=== PATIENT | female | born 1955 | race Caucasian/White ===

== ENCOUNTER 2020-09-25 16:07 | Inpatient (IN) | payer MEDICARE, BC ==
[2020-09-25] MEDS ORDERED: Acetaminophen 650 MG Supp RECTAL PRN (16:41)
[2020-09-25] MEDS ORDERED: Ondansetron 4 MG/2 ML SDV IVPUSH PRN (16:43)
[2020-09-25] MEDS ORDERED: Sodium Chloride 0.9% 10 ML Syringe FLUSH PRN (16:51)
[2020-09-25] MEDS: Dextrose 5%-Lactated Ringers 1,000 ML IV SCH (16:55)
[2020-09-25] MEDS: Pantoprazole 40 MG Vial IV SCH ×2 (17:59→21:39)
[2020-09-25] MEDS: Venlafaxine 75 MG Tab PO SCH ×2 (21:39→21:40)
[2020-09-25] MEDS: Acetaminophen 325 MG Tab PO PRN (21:46)
[2020-09-25] MEDS: LORazepam 0.5 MG Tab PO PRN (21:46)
[2020-09-26] MEDS: Dextrose 5%-Lactated Ringers 1,000 ML IV SCH ×2 (01:36→14:30)
[2020-09-26] MEDS: Levothyroxine 100 MCG Tab PO SCH (07:26)
[2020-09-26] MEDS: Venlafaxine 75 MG Tab PO SCH ×3 (08:48→20:42)
[2020-09-26] MEDS: Pantoprazole 40 MG Vial IV SCH ×2 (08:48→20:42)
[2020-09-26] MEDS: Tolterodine 2 MG Tab PO SCH ×2 (08:48→20:42)
[2020-09-26] MEDS: Magnesium Sulfate/Water 2 GM/50 ML BAG IV SCH ×3 (08:57→20:43)
[2020-09-26] MEDS ORDERED: MVI, Adult with Vitamin K 10 ML, Thiamine 200 MG, Zinc/Copper/Manganese/Selenium 1 ML i... IV ONE ×4 (09:00)
[2020-09-26] MEDS ORDERED: Cyanocobalamin (Vitamin B12) 1,000 MCG/ML SDV IM ONE (09:00)
--- NOTE | 2020-09-26 09:17 | HP ---
HISTORY OF PRESENT ILLNESS: Lucero Price is a 65-year-old female who had a laparoscopic Caden-en-Y gastric bypass surgery on 10/11/2005. She was last seen in the clinic on 11/06/2005 and presented for the first time on Friday09/22/2020. She reports that she has had mid epigastric pain for about a year. Pain was episodic at first; then in the last 2 months, it has increased to every 2 weeks; and she can have up to 3 to 4 episodes a day. She reports episode as a hard pain, poking-like, associated with nausea, dry heaves; and lasting anywhere from 1 to 5 minutes. After an episode, she put a warm rice pack on her upper abdomen. She did have an EGD in April and that was negative. She was put on a month of Protonix and she did not feel like it helped. Also associated, she has been severely constipated. Her chiropractor massaged her abdomen and gave her magnesium citrate tablets 300 mg. She was to take one at bedtime and increase the number of pills until she had a bowel movement. She did increase up to 12 pills and did not have a bowel movement. She states the pain has no relationship to eating or drinking. CURRENT MEDICATIONS: Lorazepam 0.5 mg one q.6 hours p.r.n. anxiety, levothyroxine 100 mcg 1 tablet once daily, Zofran 4 mg 1 tablet every morning before breakfast, Pepcid 20 mg b.i.d., Effexor 75 mg 1 tablet 3 times a day with meals, Detrol LA 4 mg 1 capsule once daily, vitamin B12 at 500 mcg sublingual daily, and ferrous sulfate iron 325 mg 1 tablet once a day. ALLERGIES: TO SULFA. PAST MEDICAL HISTORY: Status post Caden-en-Y gastric bypass surgery, unspecified surgical malabsorption, B12 deficiency, depression, dyslipidemia, fibromyalgia, mixed incontinence, vitamin D deficiency, and alcohol dependence. PAST SURGICAL HISTORY: Laparoscopic Caden-en-Y gastric bypass surgery 10/11/2005, hysterectomy 08/22/1981, and cholecystectomy 11/02/2014. SOCIAL HISTORY: She is , employed at the [employer] in [place], and 3 children. Smoking, no history. Caffeine, drinks 3 to 4 cups of decaf per day. Alcohol abuse, history of alcohol dependence. Last alcohol drink 2 to 3 months ago. Carbonation, rare caffeine-free Diet Coke. Otherwise, will drink some 7UP. REVIEW OF SYSTEMS: CONSTITUTIONAL: Denies any fever, chills, or weight loss. Weight has been steady. Reports episodes of getting sweaty during the day and having night sweats, several nights a week; hair loss; dizzy; and a lot more headaches. SKIN: Negative for rash, pigment changes, or skin lesions. HEENT: No ear pain, loss of hearing, or blurred or double vision. CARDIOVASCULAR: No chest pain or shortness of breath. RESPIRATORY: No shortness of breath but does have a dry cough at night. ENDOCRINE: No history of polyuria, polydipsia, skin or hair changes, or heat or cold intolerance. LYMPH: Denies any lymph node tenderness or swelling. GASTROINTESTINAL: As above. GENITOURINARY: No UTI signs or symptoms. MUSCULOSKELETAL: No joint pain or swelling. NEUROLOGIC: No history of focal neurological changes. No memory changes. PSYCHIATRIC: Depression is controlled with Effexor. Remainder of review of systems negative for any pertinent positives or negatives. PHQ-9 interpretation score is zero. DIET: Step 4, protein unknown but states eats a lot of meat. EXERCISE: None. FLUIDS: 64 ounces of water a day. OBJECTIVE: GENERAL: Lucero Price is a 65-year-old female. VITAL SIGNS: Height is 5 feet 3 inches. Weight is 160 pounds. BMI is 28. TPR is 97.5, 86, and 18. Blood pressure 126/72. HEENT: Negative. NECK: Supple. HEART: Regular rate and rhythm. LUNGS: Clear. ABDOMEN: Tender. There is firmness noted across the right, left, and mid epigastric area. EXTREMITIES: Without peripheral edema. SKIN: Without rash. NEUROLOGIC: Cranial nerves 2 through 12 intact. MUSCULOSKELETAL: Equal strength in upper and lower extremities. PSYCHIATRIC: Mood and affect appropriate, orientated x3. ASSESSMENT: 1. Upper abdominal pain. CT showing 2 gastric wall defects. a. One in the body of the stomach extending superior, suspicious for penetrating ulcer and the second lesion is close to the serosal part of the stomach wall. b. Second smaller defect in the inferior antrum, measures less than a centimeter. Also suspect for perforating ulcer. 2. Hemoglobin 6.4, ferritin 5 in the clinic. 3. Hypothyroidism. 4. Depression. 5. Unspecified surgical malabsorption. 6. B12 deficiency. 7. Fatigue. 8. Constipation. 9. History of alcohol abuse. Last drink 2 months ago. PLAN: 1. D5 LR at 125 mL per hour. Protonix 40 mg IV b.i.d. Intake and output. Ativan 0.5 mg p.o. q.6 hours p.r.n. anxiety. 2. Synthroid 100 mcg mg p.o. q.a.m. 3. Zofran 4 mg IV q.4 hours p.r.n. nausea. 4. Effexor 75 mg p.o. t.i.d. 5. Detrol LA 4 mg p.o. daily. 6. Check CBC, CMP, magnesium, phos, and TSH in a.m. Ferrous gluconate 250 mg today IV and repeat in a.m. Vitamin B12 at 1000 mcg IM 1 time today. Magnesium 2 g IV q.6 hours x48 hours. 7. Step 4 gastric bypass diet. 8. Give 1 bag of lactated Ringer with MultiVites today. She is now receiving 2 units of packed red blood cells, and plan would be exploratory laparotomy with removal of remnant stomach on 09/28/2020 pending lab results and patient's condition. We will evaluate p.r.n. or in a.m. Rachel Taylor PA-C /[id number]
[2020-09-26] MEDS ORDERED: Sodium Ferric Gluconate Cmplex 250 MG in Sodium Chloride 0.9% 100 ML IV ONE (11:00)
[2020-09-26] MEDS: Acetaminophen 325 MG Tab PO PRN (12:31)
[2020-09-26] MEDS: LORazepam 0.5 MG Tab PO PRN (22:53)
[2020-09-27] MEDS: Dextrose 5%-Lactated Ringers 1,000 ML IV SCH (01:12)
[2020-09-27] MEDS: Magnesium Sulfate/Water 2 GM/50 ML BAG IV SCH ×5 (03:33→22:20)
[2020-09-27] MEDS: Levothyroxine 100 MCG Tab PO SCH (07:34)
[2020-09-27] MEDS ORDERED: Non-Formulary Medication 1 Each IV ONE ×2 (07:43)
[2020-09-27] MEDS ORDERED: Ketamine 500 MG/5 ML MDV IV SCH ×2 (07:45)
[2020-09-27] MEDS: Pantoprazole 40 MG Vial IV SCH ×2 (08:33→20:27)
[2020-09-27] MEDS: Venlafaxine 75 MG Tab PO SCH ×3 (08:33→20:27)
[2020-09-27] MEDS: Tolterodine 2 MG Tab PO SCH ×2 (08:33→20:27)
[2020-09-27] MEDS: Acetaminophen 325 MG Tab PO PRN (09:33)
[2020-09-27] MEDS ORDERED: Sodium Ferric Gluconate Cmplex 250 MG in Sodium Chloride 0.9% 100 ML IV ONE (10:00)
--- NOTE | 2020-09-27 10:17 | PN ---
DATE OF SERVICE: 09/27/2020 SUBJECTIVE: Emelyn received 2 units of packed red blood cells yesterday. Her hemoglobin today was 8.7. She denies pain. Vital signs stable and oral intake adequate. Labs were reviewed. REVIEW OF SYSTEMS: Remainder of review of systems negative for any pertinent positives and negatives. OBJECTIVE: GENERAL: Lucero Price is a pleasant 65-year-old female. She is alert and orientated. VITAL SIGNS: TPR 95.8, 91, 18. Blood pressure 135/68. HEENT: Negative. NECK: Supple. HEART: Regular rate and rhythm. LUNGS: Clear. ABDOMEN: Soft, nontender. There remains to be some firmness in the right and left upper quadrants. Questionable liver enlargement. EXTREMITIES: Without peripheral edema. ASSESSMENT: 1. Upper abdominal pain, CT showing two gastric wall defects: a. One in body of stomach extending superior, suspicious for penetrating ulcer and the second lesion is close to the serosal part of stomach wall. b. Second smaller defect in the inferior antrum, measures less than a centimeter. Also suspect for perforating ulcer. 2. Hemoglobin on admission 6.4, ferritin 5 in clinic. 3. Hypothyroidism. 4. Depression. 5. Unspecified surgical malabsorption. 6. B12 deficiency. 7. Fatigue. 8. Constipation. 9. History of alcohol abuse. Last drink 2 months ago. PLAN: 1. Give 2 units of packed red blood cells today. 2. Schedule and have consent signed for: a. Central venous IV line for inadequate peripheral vein access. b. Exploratory laparotomy with resection of the bypass stomach and possible lysis of adhesions. Date of procedure: 09/28/2020. Case to follow. General anesthesia, TAP block, ketamine bolus indirect, magnesium bolus indirect ordered. N.p.o. after midnight. Zay Betancourt MD is surgeon. 3. Cefoxitin 2 g IV on-call to OR. 4. Check CBC, CMP, magnesium, phosphorus, and BNP in a.m. Type and screen 2 units of packed red blood cells to have on hand postoperatively. Continue to evaluate and will recheck in a.m. or p.r.n. Rachel Taylor PA-C /[id number]
[2020-09-27] MEDS ORDERED: Acetaminophen/Caffeine 500-65 MG Tab PO PRN (11:28)
[2020-09-27] MEDS: LORazepam 0.5 MG Tab PO PRN (20:26)
[2020-09-28] MEDS: Acetaminophen 325 MG Tab PO PRN (06:57)
[2020-09-28] MEDS: Levothyroxine 100 MCG Tab PO SCH (07:01)
[2020-09-28] MEDS ORDERED: Meropenem 500 MG SDV ONE (07:03)
[2020-09-28] MEDS ORDERED: Lidocaine 1% with EPINEPHrine 1:100,000 50 ML MDV ONE (07:03)
[2020-09-28] MEDS ORDERED: Bupivacaine 0.5% 50 ML MDV ONE (07:03)
[2020-09-28] MEDS ORDERED: Dexamethasone 4 MG/ML SDV ONE (07:11)
[2020-09-28] MEDS ORDERED: Glycopyrrolate 0.2 MG/ML 5 ML MDV ONE (07:11)
[2020-09-28] MEDS ORDERED: Rocuronium 50 MG/5 ML Vial ONE ×2 (07:11→13:17)
[2020-09-28] MEDS ORDERED: fentaNYL 250 MCG/5 ML SDV ONE ×2 (07:11→13:16)
[2020-09-28] MEDS ORDERED: Neostigmine Methylsulfate 1 MG/ML 5 ML Syringe ONE (07:11)
[2020-09-28] MEDS ORDERED: Succinylcholine 200 MG/10 ML MDV ONE (07:11)
[2020-09-28] MEDS ORDERED: Ondansetron 4 MG/2 ML SDV ONE (07:11)
[2020-09-28] MEDS ORDERED: Propofol 200 MG/20 ML SDV ONE (07:11)
[2020-09-28] MEDS ORDERED: Acetaminophen 325 MG Tab PO ONE (07:15)
[2020-09-28] MEDS: Tolterodine 2 MG Tab PO SCH ×2 (08:24→20:53)
[2020-09-28] MEDS: Venlafaxine 75 MG Tab PO SCH ×3 (08:24→20:53)
[2020-09-28] MEDS: Pantoprazole 40 MG Vial IV SCH (08:24)
--- NOTE | 2020-09-28 09:43 | PN ---
DATE OF SERVICE: 09/28/2020 SUBJECTIVE: Lucero is n.p.o. for surgery today. She continues to report having headache, was given Excedrin Tension Migraine yesterday and did not have any relief. She has no concerns or questions today. OBJECTIVE: GENERAL: Lucero Price is a pleasant 65-year-old female. VITAL SIGNS: TPR 96.8, 85, 18, blood pressure 146/80. HEENT: Negative. NECK: Supple. HEART: Regular rate and rhythm. LUNGS: Clear. ABDOMEN: Soft, nontender. EXTREMITIES: Without peripheral edema. LABORATORY DATA: Hemoglobin this morning is 11. ASSESSMENT: 1. Upper abdominal pain. CT showing 2 gastric wall defects. a. One in body of stomach extending superior, suspicious for penetrating ulcer and the second lesion is close to the serosal part of the stomach wall. b. Second smaller defect in the inferior antrum, measures less than 1 cm. Also suspect for perforating ulcer. 2. Hemoglobin 6.4 on admission, ferritin 5. 3. Hypothyroidism. 4. Depression. 5. Unspecified surgical malabsorption. 6. B12 deficiency. 7. Fatigue. 8. Chronic constipation. 9. History of alcohol abuse. Last drink 2 months ago. PLAN: 1. Remain n.p.o. due to surgery. Case to follow. 2. Give 1 g of Tylenol p.o. with a sip of water this morning. 3. Orders to be written postoperatively. Rachel Taylor PA-C /[id number]
[2020-09-28] MEDS: Ropivacaine 36 ML, dexAMETHasone 8 MG, EPINEPHrine 0.4 MG, Sodium Chloride 0.9% 41.6 ML NERVRT SCH ×8 (11:44→13:25)
[2020-09-28] MEDS ORDERED: Magnesium Sulfate 3.4 GM in Sodium Chloride 0.9% 250 ML IV ONE (12:00)
[2020-09-28] MEDS ORDERED: Ketamine 50 MG in Sodium Chloride 0.9% 49.5 ML IV SCH (12:00)
[2020-09-28] MEDS ORDERED: cefOXitin 2 GM in Sodium Chloride 0.9% 50 ML IV ONE (12:00)
[2020-09-28] MEDS ORDERED: Ketamine 500 MG/5 ML MDV IV SCH (12:00)
[2020-09-28] MEDS ORDERED: Magnesium Sulfate 2.1 GM in Sodium Chloride 0.9% 100 ML IV SCH (12:00)
[2020-09-28] MEDS ORDERED: Lactated Ringers 1,000 ML ONE (12:30)
[2020-09-28] MEDS ORDERED: Naloxone 0.4 MG/ML SDV IVPUSH PRN (15:02)
[2020-09-28] MEDS ORDERED: Scopolamine 1.5 MG Transdermal Patch TRDERM PRN (15:03)
--- NOTE | 2020-09-28 15:35 | CR ---
CHEST: Portable 09/28/2020 CLINICAL HISTORY:Post triple-lumen catheter placement COMPARISON:2013 FINDINGS: There is less than optimal inspiration. There has been interval placement of a left subclavian catheter. The tip is in the upper portion the right atrium. No pneumothorax. There is a surgical drain in the left hemidiaphragm. IMPRESSION: Left subclavian catheter placement Less than optimal inspiration No acute cardiopulmonary process
[2020-09-28] MEDS: HYDROmorphone/Normal Saline 15 MG/30 ML PCA IV PRN (15:46)
[2020-09-28] MEDS: Dextrose 5%-Lactated Ringers 1,000 ML IV SCH (15:49)
[2020-09-28] MEDS ORDERED: LORazepam 2 MG/ML SDV IVPUSH PRN (15:56)
[2020-09-28] MEDS ORDERED: Cyclobenzaprine 10 MG Tab PO PRN (15:57)
[2020-09-28] MEDS ORDERED: Acetaminophen 500 MG Tab PO PRN (16:00)
[2020-09-28] MEDS ORDERED: Calcium Gluconate 10% 1 GM/10 ML SDV IVPUSH PRN (16:00)
[2020-09-28] MEDS ORDERED: Metoclopramide 10 MG/2 ML SDV IVPUSH PRN (16:00)
[2020-09-28] MEDS ORDERED: hydrOXYzine HCL 100 MG/2 ML SDV IM PRN (16:00)
[2020-09-28] MEDS ORDERED: cefOXitin 2 GM in Sodium Chloride 0.9% 50 ML IV SCH (16:00)
[2020-09-28] MEDS ORDERED: diphenhydrAMINE 50 MG/ML SDV IVPUSH PRN (16:00)
[2020-09-28] MEDS ORDERED: MVI, Adult with Vitamin K 10 ML, Thiamine 200 MG, Zinc/Copper/Manganese/Selenium 1 ML i... IV SCH ×4 (17:00)
[2020-09-28] MEDS: Labetalol 20 MG/4 ML Syringe IVPUSH PRN (17:11)
[2020-09-28] MEDS: cefOXitin 2 GM in Sodium Chloride 0.9% 50 ML IV SCH (20:50)
[2020-09-28] MEDS: Acetaminophen 500 MG Tab PO SCH (22:43)
[2020-09-28] MEDS: Heparin Sodium 5,000 Units/ML Vial SUBCUT SCH (22:43)
[2020-09-29] MEDS: Dextrose 5%-Lactated Ringers 1,000 ML IV SCH ×2 (00:10→06:45)
[2020-09-29] MEDS: cefOXitin 2 GM in Sodium Chloride 0.9% 50 ML IV SCH ×4 (02:33→20:08)
[2020-09-29] MEDS ORDERED: Iopamidol 612 MG/ML 50 ML SDV PO STA (02:40)
[2020-09-29] MEDS: Acetaminophen 500 MG Tab PO SCH ×3 (06:10→22:11)
[2020-09-29] MEDS ORDERED: Ondansetron 4 MG Tab.DIS PO PRN (07:24)
[2020-09-29] MEDS: Levothyroxine 100 MCG Tab PO SCH (08:13)
[2020-09-29] MEDS ORDERED: Pantoprazole 40 MG Vial IVPUSH SCH (09:00)
--- NOTE | 2020-09-29 09:07 | CR ---
UGI Limited HISTORY: Postbariatric surgery FINDINGS: Patient swallowed water-soluble contrast. Upright views of the abdomen show no evidence of extravasation or obstruction. There are 2 surgical drains in the epigastric region and an additional drain in the left upper quadrant. IMPRESSION: Status post bariatric surgery No extravasation or obstruction seen
--- NOTE | 2020-09-29 09:16 | PN ---
DATE OF SERVICE: 09/29/2020 SUBJECTIVE: Lucero is postop day 1. Pain has been controlled. She is resting comfortably. Vital signs stable. Oral intake 520. Urine output via Hunter catheter is 1300, and WALT drain 1, 2, and 3 have put out 60, 16, and 57 of a light red drainage. REVIEW OF SYSTEMS: Remainder of review of systems negative for any pertinent positives and negatives. OBJECTIVE: GENERAL: Lucero Price is a pleasant 65-year-old female. VITAL SIGNS: TPR is 96.3, 86, and 18. Blood pressure 162/81. HEENT: Negative. NECK: Supple. HEART: Regular rate and rhythm. LUNGS: Clear. ABDOMEN: Dressings dry and intact. WALT drains x3 intact. EXTREMITIES: Without peripheral edema. ASSESSMENT: 1. Exploratory laparotomy with total gastrectomy: a. With Caden-en-Y gastrojejunostomy. b. En bloc resection of portion of previous gastrojejunostomy. c. En bloc resection of area of inferior portion of the pancreatic soft tissue necrosis. d. Drainage of inflammatory fluid collecting adjacent to gastrojejunostomy anastomosis of the gastric fundus. e. Repair of incarcerated incisional hernia. f. Repair of incarcerated umbilical hernia. 2. Insertion of left subclavian triple-lumen catheter. Date of procedure: 09/28/2020. Surgeon: Zay Betancourt MD. POSTOPERATIVE DIAGNOSES: 1. Extensive ulceration and bleeding of bypassed stomach refractory to medical management. 2. 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 3. Inflammatory fluid collection adjacent to the gastrojejunostomy and gastric fundus. 4. Inflammation involvement of gastrojejunostomy. 5. Incarcerated incisional hernia above umbilicus. 6. Incarcerated umbilical hernia. PLAN: 1. Schedule and have consent signed for delayed primary closure with IV local sedation and TAP block on Friday09/30/2020 at 0715, Zay Betancourt MD. NPO after midnight. 2. Step 2 gastric bypass diet without cereal. 3. Decrease IV to 100 mL per hour. 4. Leave Hunter catheter in for accurate output. 5. Check CBC, CMP, mag, and phos in a.m. Rachel Taylor PA-C /[id number]
[2020-09-29] MEDS: SCOPOLAMINE PATCH CHECK TOP SCH (09:58)
[2020-09-29] MEDS: Tolterodine 2 MG Tab PO SCH ×2 (10:00→22:11)
[2020-09-29] MEDS: Venlafaxine 75 MG Tab PO SCH ×3 (10:01→22:11)
[2020-09-29] MEDS: Heparin Sodium 5,000 Units/ML Vial SUBCUT SCH ×2 (10:02→22:11)
[2020-09-29] MEDS ORDERED: Lactated Ringers 500 ML IV ONE (13:15)
[2020-09-29] MEDS: MVI, Adult with Vitamin K 10 ML, Thiamine 200 MG, Zinc/Copper/Manganese/Selenium 1 ML i... IV SCH ×4 (15:00)
[2020-09-29] MEDS: HYDROmorphone/Normal Saline 15 MG/30 ML PCA IV PRN (20:27)
[2020-09-29] MEDS: Labetalol 20 MG/4 ML Syringe IVPUSH PRN (23:11)
[2020-09-30] MEDS: Dextrose 5%-Lactated Ringers 1,000 ML IV SCH ×2 (01:43→11:57)
[2020-09-30] MEDS: cefOXitin 2 GM in Sodium Chloride 0.9% 50 ML IV SCH ×4 (01:48→19:49)
[2020-09-30] MEDS: Acetaminophen 500 MG Tab PO SCH ×3 (05:32→21:15)
[2020-09-30] MEDS ORDERED: Meropenem 500 MG SDV ONE (06:27)
[2020-09-30] MEDS ORDERED: Bupivacaine 0.5% 50 ML MDV ONE (06:28)
[2020-09-30] MEDS ORDERED: Lidocaine 1% with EPINEPHrine 1:100,000 50 ML MDV ONE (06:28)
[2020-09-30] MEDS ORDERED: Propofol 200 MG/20 ML SDV ONE (07:02)
[2020-09-30] MEDS ORDERED: fentaNYL 100 MCG/2 ML SDV ONE (07:03)
[2020-09-30] MEDS ORDERED: Ondansetron 4 MG/2 ML SDV ONE (07:17)
[2020-09-30] MEDS ORDERED: Ropivacaine 36 ML, dexAMETHasone 8 MG, EPINEPHrine 0.4 MG, Sodium Chloride 0.9% 41.6 ML NERVRT SCH ×4 (07:30)
[2020-09-30] MEDS: Levothyroxine 100 MCG Tab PO SCH (08:36)
[2020-09-30] MEDS ORDERED: Cyanocobalamin (Vitamin B12) 1,000 MCG/ML SDV IM ONE (09:00)
[2020-09-30] MEDS: Tolterodine 2 MG Tab PO SCH ×2 (09:30→21:15)
[2020-09-30] MEDS: Venlafaxine 75 MG Tab PO SCH ×3 (09:31→21:15)
[2020-09-30] MEDS: Heparin Sodium 5,000 Units/ML Vial SUBCUT SCH ×2 (09:33→21:16)
[2020-09-30] MEDS: SCOPOLAMINE PATCH CHECK TOP SCH (09:34)
[2020-09-30] MEDS: Magnesium Sulfate/Water 2 GM/50 ML BAG IV SCH ×3 (10:20→21:16)
[2020-09-30] MEDS: Pantoprazole 40 MG Delayed-Release Granules 1 Packet PO SCH (12:09)
[2020-09-30] MEDS: MVI, Adult with Vitamin K 10 ML, Thiamine 200 MG, Zinc/Copper/Manganese/Selenium 1 ML i... IV SCH ×4 (15:15)
[2020-09-30] MEDS ORDERED: Furosemide 20 MG/2 ML VIAL IVPUSH ONE (15:38)
[2020-09-30] MEDS: Labetalol 20 MG/4 ML Syringe IVPUSH PRN (15:49)
[2020-10-01] MEDS: cefOXitin 2 GM in Sodium Chloride 0.9% 50 ML IV SCH (03:15)
[2020-10-01] MEDS: Magnesium Sulfate/Water 2 GM/50 ML BAG IV SCH ×4 (04:31→21:52)
[2020-10-01] MEDS: Dextrose 5%-Lactated Ringers 1,000 ML IV SCH (05:28)
[2020-10-01] MEDS: Acetaminophen 500 MG Tab PO SCH ×3 (05:35→21:52)
[2020-10-01] MEDS: Levothyroxine 100 MCG Tab PO SCH (08:07)
[2020-10-01] MEDS: Pantoprazole 40 MG Delayed-Release Granules 1 Packet PO SCH (08:07)
[2020-10-01] MEDS: Tolterodine 2 MG Tab PO SCH ×2 (09:06→21:59)
[2020-10-01] MEDS: Venlafaxine 75 MG Tab PO SCH ×3 (09:07→21:52)
[2020-10-01] MEDS ORDERED: Dextrose 5%-Lactated Ringers 1,000 ML IV SCH (09:15)
[2020-10-01] MEDS: Heparin Sodium 5,000 Units/ML Vial SUBCUT SCH ×2 (09:30→21:51)
[2020-10-01] MEDS: HYDROmorphone 2 MG Tab PO PRN ×4 (09:48→21:54)
[2020-10-01] MEDS: Docusate Sodium 100 MG Cap PO SCH ×2 (10:30→21:52)
[2020-10-01] MEDS: Bisacodyl 5 MG Tab PO SCH ×2 (10:30→21:52)
[2020-10-01] MEDS: Potassium Phos in 0.9 % NaCl 15 MMOL in Premix Bag 1 BAG IV SCH ×6 (11:21→19:55)
[2020-10-01] MEDS: Celecoxib 200 MG Cap PO SCH ×2 (11:21→21:52)
[2020-10-01] MEDS ORDERED: Potassium Phosphates 15 MMOLE in Sodium Chloride 0.9% 250 ML IV SCH (12:00)
--- NOTE | 2020-10-01 12:01 | PN ---
DATE OF SERVICE: 10/01/2020 The patient is postop day #3 from a total gastrectomy with en bloc resection of portion of gastrojejunostomy and peripancreatic soft tissue necrosis. She developed bile leak over the night beginning yesterday, but this appears to be slowing down there is quite a bit of low output, but although still slightly rai in terms of color. Labs look good. Phosphate remains mildly low and I think we are probably dealing with some phosphate deficiency . Otherwise, we will go up to a step 4 diet today, begin some bowel stimulation. Her urine output was quite high yesterday, and we will back down on the IV rate to either keep open or heparin lock the triple-lumen per nursing preference, and begin some bowel stimulation and switch over to oral pain medication today. We will add some Celebrex to the equation as well which may help reduce the narcotic requirements. Zay Betancourt MD /[id number]
--- NOTE | 2020-10-01 13:08 | PN ---
DATE OF SERVICE: 09/30/2020 The patient has been afebrile with stable vital signs. Did develop low-grade bile leak in both the WALT drains adjacent to the duodenal stump closure. As mentioned earlier, this was not overly unexpected given the quality of the duodenum. Overall, the patient is otherwise doing well. Underwent delayed primary closure today. We will restart the step-2 diet with some protein supplements. We will need to watch that the diet does not dramatically increase the amount of drain output, in which case may be they wanted to go back more of a TPN based nutritional support. Otherwise, continue to maximize activity and work with pulmonary toilet. Magnesium is somewhat low level, that will be supplemented over the next 48 hours. Zay Betancourt MD /[id number]
--- NOTE | 2020-10-01 13:08 | OR ---
DATE OF PROCEDURE: 09/30/2020 SURGEON: Zay Betancourt MD PREOPERATIVE DIAGNOSIS: Open abdominal incision. POSTOPERATIVE DIAGNOSIS: Open abdominal incision. OPERATIVE PROCEDURE: Delayed primary closure of open abdominal incision. ANESTHESIA: Local plus IV sedation. INDICATIONS FOR PROCEDURE: The patient is status post a total gastrectomy along with closure of a difficult to open duodenal stump and was felt to be at high risk for wound infection if a primary closure was undertaken. Given this, the balloon was left open for a planned delayed primary closure. Potential risks including bleeding and infection were reviewed and the patient wishes to proceed. DETAILS OF PROCEDURE: The patient was taken to the operating room, placed in the supine position. After IV sedation was administered, the abdominal dressing was taken down and incision inspected and found to be clean. Incision was then prepped and draped, anesthetized with 1% lidocaine mixed with Marcaine, and irrigated with meropenem-containing saline solution. Using ultrasound guidance, bilateral transversus abdominis plane blocks were placed, and the incision then closed with 2 layers of 3-0 and 4-0 Vicryl stitch deep, and linda for the skin. Dressing was applied. The patient was taken to the recovery room in satisfactory condition. Zay Betancourt MD /[id number]
[2020-10-01] MEDS: LORazepam 0.5 MG Tab PO PRN (21:52)
[2020-10-02] MEDS: Magnesium Sulfate/Water 2 GM/50 ML BAG IV SCH (03:01)
[2020-10-02] MEDS: Acetaminophen 500 MG Tab PO SCH ×3 (05:24→21:18)
[2020-10-02] MEDS: HYDROmorphone 2 MG Tab PO PRN ×3 (05:27→18:28)
[2020-10-02] MEDS: Pantoprazole 40 MG Delayed-Release Granules 1 Packet PO SCH (07:16)
[2020-10-02] MEDS: Levothyroxine 100 MCG Tab PO SCH (07:16)
--- NOTE | 2020-10-02 08:19 | PN ---
DATE OF SERVICE: 10/02/2020 SUBJECTIVE: Lucero reports pain is controlled. She has been up, ambulating. She is not passing any flatus yet, was started on bowel stimulation yesterday. Oral intake 1426. Urine output 5650. WALT drains 1, 2, 3, put out 70, 55, and 70. WALT drain 1 and 2 are tea- colored and 3 color is pink, serosanguineous. REVIEW OF SYSTEMS: Remainder of review of systems negative for any pertinent positives and negatives. OBJECTIVE: GENERAL: Lucero Price is a pleasant 65-year-old female. VITAL SIGNS: TPR is 97.2, 102, 18, blood pressure 157/87. HEENT: Negative. NECK: Supple. HEART: Regular rate and rhythm. LUNGS: Clear. ABDOMEN: Aquacel dressings on. Abdominal binder is on. WALT drains as above. EXTREMITIES: Without peripheral edema. ASSESSMENT: 1. Delayed primary closure on 09/30/2020, Zay Betancourt MD. 2. Exploratory laparotomy with total gastrectomy: a. Caden-en-Y gastrojejunostomy. b. En bloc resection of portion of previous gastrojejunostomy. c. En bloc resection of area of inferior portion of the pancreatic soft tissue necrosis. d. Drainage of inflammatory fluid collecting adjacent to the gastrojejunostomy anastomosis of the gastric fundus. e. Repair of incarcerated incisional hernia. f. Repair of incarcerated umbilical hernia. g. Insertion of left subclavian triple-lumen catheter. 3. Date of procedure: 09/28/2020. Surgeon: Zay Betancourt MD. PLAN: 1. Refer to discharge planning in regard to home health care. 2. Teach the patient WALT drainage to strip, drain, measure, and record WALT drains q.i.d. 3. Check amylase on AWLT drain #3. 4. Planned discharge in a.m. 5. We will evaluate p.r.n. or in a.m. Rachel Taylor PA-C /[id number]
[2020-10-02] MEDS: Docusate Sodium 100 MG Cap PO SCH ×2 (09:32→20:18)
[2020-10-02] MEDS: Celecoxib 200 MG Cap PO SCH ×2 (09:32→20:18)
[2020-10-02] MEDS: Tolterodine 2 MG Tab PO SCH ×2 (09:33→20:18)
[2020-10-02] MEDS: Bisacodyl 5 MG Tab PO SCH ×2 (09:33→20:18)
[2020-10-02] MEDS: Venlafaxine 75 MG Tab PO SCH ×3 (09:33→20:18)
[2020-10-02] MEDS: Heparin Sodium 5,000 Units/ML Vial SUBCUT SCH ×2 (09:33→21:19)
[2020-10-02] MEDS: LORazepam 0.5 MG Tab PO PRN (20:18)
[2020-10-03] MEDS: HYDROmorphone 2 MG Tab PO PRN ×2 (02:03→07:22)
[2020-10-03] MEDS: Acetaminophen 500 MG Tab PO SCH (06:36)
[2020-10-03] MEDS: Levothyroxine 100 MCG Tab PO SCH (07:19)
[2020-10-03] MEDS: Pantoprazole 40 MG Delayed-Release Granules 1 Packet PO SCH (07:20)
[2020-10-03] MEDS: Celecoxib 200 MG Cap PO SCH (08:26)
[2020-10-03] MEDS: Venlafaxine 75 MG Tab PO SCH (08:26)
[2020-10-03] MEDS: Bisacodyl 5 MG Tab PO SCH (08:26)
[2020-10-03] MEDS: Docusate Sodium 100 MG Cap PO SCH (08:27)
[2020-10-03] MEDS: Tolterodine 2 MG Tab PO SCH (08:27)
[2020-10-03] MEDS ORDERED: Magnesium Hydroxide 400 MG/5 ML Susp 30 ML Cup PO SCH (09:00)
--- NOTE | 2020-10-03 09:53 | OR ---
DATE OF PROCEDURE: 09/28/2020 SURGEON: Zay Betancourt MD PREOPERATIVE DIAGNOSES: 1. Limited peripheral venous access. 2. Extensive ulceration of bypassed stomach, status post Caden-en-Y gastric bypass. POSTOPERATIVE DIAGNOSES: 1. Peripheral venous access. 2. Extensive ulceration and bleeding of bypassed stomach refractory to medical management. 3. 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 4. Inflammatory fluid collection adjacent to gastrojejunostomy and gastric fundus. 5. Inflammation involving adherence of bypassed stomach to previous gastrojejunostomy requiring the reconstruction of the gastrojejunostomy. 6. Incarcerated incisional hernia. 7. Incarcerated umbilical hernia. OPERATIVE PROCEDURE: 1. Insertion of left subclavian vein triple-lumen catheter (37363). 2. Exploratory laparotomy with: a. Total gastrectomy with Caden-en-Y gastrojejunostomy with en bloc resection and reconstruction of previous gastrojejunostomy (03458). b. En bloc resection of area of peripancreatic soft tissue necrosis (22705). c. Drainage of inflammatory fluid collection adjacent to gastrojejunostomy and gastric fundus (85450). d. Repair of incarcerated incisional hernia (12140). e. Repair of incarcerated umbilical hernia (31994). ANESTHESIA: General. ASSISTANTS: Rachel Taylor PA-C and GALINA Whitley student. INDICATIONS FOR PROCEDURE: This is a 65-year-old status post previous Caden-en-Y gastric bypass done many years ago. Over the last year, she has had progressive upper abdominal discomfort. She had an upper endoscopy done this summer in [place], which showed a normal upper GI endoscopic examination, status post Caden-en-Y gastric bypass. She was treated with a course of Protonix for presumed ulceration or gastritis in the bypassed stomach or duodenum without significant improvement. She was now admitted here with significant ongoing GI bleeding with hemoglobin dropping down into the 6 range. The patient had been transfused up and also receiving some IV iron therapy. A CT scan was obtained, which showed quite severe ulcer disease involving the bypassed stomach. There were 2 areas of ulceration; one in the fundus, which was abutting the previous gastrojejunostomy and the other one in the antrum, which was abutting the pancreas at that level. Given the severity of the ulceration, the radiologist contacted the Surgery Service regarding the likelihood of this imminently perforating. The patient was admitted for transfusion and was initiated on Protonix. After transfusion and medical stabilization, the patient is undergoing exploratory laparotomy with the intention of proceeding with a total gastrectomy removing all but the tiny gastric pouch that she has with the present Caden-en-Y gastric bypass. The patient at this point has also very significantly limited peripheral venous access, and central line will be inserted. Potential risks of the procedure including bleeding; infection; injury to lungs or vasculature during the central line insertion; problems with leaks from GI tract closures; specifically the likelihood that it will be somewhat difficult duodenal stump closure, which may result in a duodenal stump leak, which may require protracted drainage and at some point reoperation; possible need to reconstruct the present gastrojejunostomy was also gone over; and then lastly remote possibility of cardiopulmonary, septic, or hemorrhagic complications leading to were discussed, and the patient wishes to proceed. DETAILS OF PROCEDURE: The patient was taken to the operating room and after general endotracheal anesthesia was induced, the upper chest and neck areas were prepped and draped. The left subclavian area was cannulated, guidewire passed. Over the guidewire, a triple- lumen catheter positioned. Good in and outflow was noted through the port, which was flushed with heparinized saline and the catheter sutured to skin with some 3-0 silk stitch and a dressing applied. Subsequent, chest x-ray showed good catheter position without evident complications. Hunter catheter was inserted, and the abdomen prepped and draped. A midline incision from the xiphoid to the umbilicus was then made and carried down through the full-thickness of abdominal wall. Upon entering the peritoneal cavity, general exploration was undertaken. The entire bypassed stomach was noted to be leathery and thickened in nature. There was no gross evidence of any intraperitoneal metastatic disease in the event this might income tax return preparer to be dysplastic type tumor. As one dissected the gastric fundus away from the previous gastrojejunostomy, it became evident that some of this was more or less fused to the previous gastrojejunostomy by chronic scar and inflammation, and portion of the gastrojejunostomy was resected along with the stomach. A thinly purulent inflammatory fluid collection was present adjacent to the gastric fundus and gastrojejunostomy as well. This was evacuated. Cultures were then obtained. Using a combination of blunt, sharp, and stable dissection, the fundus was eventually freed up from the surrounding soft tissue attachments including the splenic attachments. This did require resection of portion of the previous gastrojejunostomy. As the dissection of the stomach progressed in a rightward direction, it was evident that there was quite a bit in the way of peripancreatic soft tissue necrosis. This was more or less debrided along with resection of the stomach as one passed in a rightward direction underneath the Caden limb, and eventually, this came up to the area of the pylorus and just beyond that the duodenum was encircled. This was initially stapled with a KM black load with a curved configuration, and the specimen delivered off the field. Specimen was inspected. There was not any obvious mucosal findings suggestive of tumor, although particularly in the fundus, the gastric wall was extremely thick and likely related to long-term scar formation, although neoplastic changes could not be ruled out grossly. The duodenal stump closure site at this point was now noted to be partially opened. This was then carefully sutured with 2 layers of 3-0 Vicryl stitch, first being a full-thickness layer and the second being a seromuscular layer. That area was then reinforced with fibrin sealant and an omental patch, then packed over that area with some 3-0 Vicryl stitch as well. The gastrojejunostomy was more or less flush with the esophagogastric junction. It was then reconstructed with series of 3-0 Vicryl sutures placed initially full-thickness and then seromuscular stitches thereafter. An Vineet tube measuring 32-[place] was then passed from across that area to confirm patency of the gastrojejunostomy, and it appeared to be satisfactorily patent at this point. Again, the final level of the gastrojejunostomy was essentially at the esophagogastric junction consistent with this procedure being a total gastrectomy. During the course of the initial entrance of the abdomen, an incarcerated incisional hernia just above the umbilicus and separate incarcerated hernia involving the umbilicus were encountered. The components of those hernias were excised, and at this point, the abdomen irrigated with meropenem-containing saline solution. Both the reconstructed gastrojejunostomy and duodenal stump area were reinforced with fibrin sealant, and drains applied at both those areas. Two drains placed adjacent to the duodenal stump closure in anticipation of fairly high rate of leak from that area would require drainage. The area of dissection was inspected once again after antibiotic irrigation. The midline fascia was approximated with a #2 Vicryl stitch. This included repair of the umbilical and incisional hernias. The skin and subcutaneous tissue were felt to be high risk for wound infection and were left open for a planned delayed primary closure in 48 hours. Prior to closure, bilateral transversus abdominis plane blocks were placed, and the patient was taken to the recovery room in satisfactory condition. Physician general office assistant, Rachel Taylor PA-C, played an essential role in assisting in this case, helping to position the patient, retract structures as needed, and as well as suturing and cutting sutures when indicated. Her presence improved patient's safety and decreased the operative time. Zay Betancourt MD /[id number]
--- NOTE | 2020-10-04 10:00 | DISCH ---
ADMISSION DIAGNOSES: 1. Abdominal pain. 2. CT showed two gastric wall defects suspicious for ulcer. 3. Hemoglobin 6.4. 4. Hypothyroidism. 5. Depression. 6. History of Caden-en-Y gastric bypass surgery. 7. Unspecified surgical malabsorption. 8. B12 deficiency. 9. Fatigue. 10.Chronic constipation. 11.History of alcohol abuse, last drink two months ago. DISCHARGE DIAGNOSES: 1. Exploratory laparotomy with total gastrectomy;. a. With Caden-en-Y gastrojejunostomy. b. En bloc resection of portion of previous gastrojejunostomy. c. En bloc resection of area of inferior portion of the pancreatic soft tissue necrosis. d. Drainage of inflammatory fluid collecting adjacent to gastrojejunostomy anastomosis of the gastric fundus. e. Repair of incarcerated incisional hernia. f. Repair of incarcerated umbilical hernia. 2. Insertion of left subclavian triple lumen.Date of procedure: 09/28/2020. Surgeon: Zay Betancourt MD. 3. Delayed primary closure for open abdominal incision. Date of procedure: 09/30/2020. Surgeon: Zay Betancourt MD. HISTORY: Lucero Price has had extensive abdominal pain for about a year, which has increasingly gotten worse. After preoperative evaluation and discussion of possible risks and possible complications, she wished to proceed with surgical procedure. HOSPITAL COURSE: Lucero was hospitalized on 09/26/2020, and was given IV fluids, and her labs were monitored. On 09/27/2020, she was given 2 units of packed red blood cells, and labs were continued to be monitored. On 09/28/2020, she had her surgery. Had no operative complications. A triple-lumen was placed at the time of surgery, and her pain was managed. On 09/29/2020, Lucero was postop day 1. Her pain was controlled. She had a Hunter catheter in and started on a step-2 gastric bypass diet. On 09/30/2020, delayed primary closure. Had no operative complications. Was restarted on step-2. Three WALT drains were continued to be monitored. On 10/01/2020, she developed a bile leak over the night and her WALT drain one and two were putting out tea-colored drainage. WALT drain number three was serosanguineous. She was advanced to a step-4 diet and started on bowel stimulation. Her triple lumen was saline locked. On 10/02/2020, labs were monitored. Emelyn was taught how to do home WALT drain care. Amylase was checked on WALT drain number three and was 58. Emelyn was able to be discharged to home, and throughout her hospital stay she was given a total of 4 units of packed red blood cells. Lowest hemoglobin was 6.4; and at time of discharge, her hemoglobin was 10.1. Emelyn was able to be discharged to home with instructions on how to take care of her WALT drain. REVIEW OF SYSTEMS: Negative for any other pertinent positives or negatives. The pain was managed with Dilaudid, Celebrex, and Tylenol. PHYSICAL EXAMINATION: GENERAL: Lucero Price is a pleasant 65-year-old female. VITAL SIGNS: Height is 5 feet 6 inches, weight is 160 pounds, BMI is 28. TPR; 97.2, 100, 16, and blood pressure 160/89. HEENT: Negative. NECK: Supple. HEART: Regular rate and rhythm. LUNGS: Clear. ABDOMEN: Aquacel dressings on. WALT drain one and two put out a tea-colored drainage of 120 and 145 over the past 24 hours. The WALT drain three put out 95 of a light serosanguineous drainage, and this will be removed prior to discharge. EXTREMITIES: Without peripheral edema. NEUROLOGIC: Intact. PSYCHIATRIC: Mood and affect appropriate. DISPOSITION: Discharged to home. CONDITION: Stable and improving. FOLLOWUP: Appointment with Zay Betancourt MD, on Friday10/11/2020 at 10 a.m. HOME MEDICATIONS: 1. Celebrex 200 mg p.o. b.i.d., #28. 2. Colace 100 mg p.o. b.i.d., #60, 5 refills. 3. Dilaudid 2 mg p.o. q.4 hours p.r.n. pain, #42. 4. Bisacodyl 10 mg p.o. b.i.d., #60, may discontinue after having bowel movement. 5. Milk of magnesia 30 mL to take one daily, two were sent home with the patient. To resume home medication of; 1. Venlafaxine 75 mg p.o. t.i.d. 2. Levothyroxine 100 mcg p.o. daily. 3. Detrol 2 mg p.o. b.i.d. 4. Vitamin B12 1000 mcg mg sublingual daily. 5. Alprazolam. 6. Xanax 0.5 mg p.o. daily p.r.n. anxiety. 7. Multivitamin one chewable b.i.d. 8. We will address recommended vitamins and supplements at 1st postop appointment. DIET: Step-4 gastric bypass diet, 65 g of protein, and 64 ounces of fluid. ACTIVITY: No lifting greater than 10 pounds for 6 weeks. Walk at least 6 times daily inside your home. DISCHARGE INSTRUCTIONS: Driving after discharge: Do not drive for 1 week and within 6 to 8 hours after taking narcotic pain medication. Shower/bathing: May shower. Keep operative site clean and dry. Take off Aquacel dressing on Friday10/06/2020. Wear abdominal binder for 6 weeks and then as tolerated. Notify provider if any fever, increased pain, swelling, redness, drainage, nausea, or vomiting. OTHER INSTRUCTIONS: 1. Strip, empty, measure, and record amount of drainage and color four times a day. Bring record of WALT drainage to clinic appointment. 2. Use incentive spirometer 10 times every hour while awake for 1 week. /[id number]
== END 2020-10-03 09:30 | disposition home or self-care (01) | DRG 327 ==
LOC: JP.MS 16:07
PROVIDERS: ADMIT Surgery; ATTEND Surgery
PROC: 0D160ZA Bypass Stomach to Jejunum, Open Approach (ICD-10-PCS; principal; 2020-09-28)
PROC: 0WQF0ZZ Repair Abdominal Wall, Open Approach (ICD-10-PCS; 2020-09-28)
PROC: 0WQF0ZZ Repair Abdominal Wall, Open Approach (ICD-10-PCS; 2020-09-28)
PROC: 0FBG0ZZ Excision of Pancreas, Open Approach (ICD-10-PCS; 2020-09-28)
PROC: 0D960ZZ Drainage of Stomach, Open Approach (ICD-10-PCS; 2020-09-28)
PROC: 02HV33Z Insertion of Infusion Device into Superior Vena Cava, Percutaneous Approach (ICD-10-PCS; 2020-09-28)
PROC: 0HQ7XZZ Repair Abdomen Skin, External Approach (ICD-10-PCS; 2020-09-30)
DX: K95.89 Other complications of other bariatric procedure (principal); K43.0 Incisional hernia with obstruction, without gangrene; K42.0 Umbilical hernia with obstruction, without gangrene; K90.9 Intestinal malabsorption, unspecified; Y83.8 Other surgical procedures as the cause of abnormal reaction of the patient, or of later complication, without mention of misadventure at the time of the procedure; K25.9 Gastric ulcer, unspecified as acute or chronic, without hemorrhage or perforation; K86.89 Other specified diseases of pancreas; E03.9 Hypothyroidism, unspecified; F32.9 Major depressive disorder, single episode, unspecified; E53.8 Deficiency of other specified B group vitamins; K59.09 Other constipation; F10.10 Alcohol abuse, uncomplicated; M79.7 Fibromyalgia; E55.9 Vitamin D deficiency, unspecified; E78.5 Hyperlipidemia, unspecified; R32 Unspecified urinary incontinence; Z98.84 Bariatric surgery status; Z88.2 Allergy status to sulfonamides; Z20.822 Contact with and (suspected) exposure to COVID-19
CPT/HCPCS: 36415; 36430; 71045; 71045-26; 74240; 74240-26; 80048; 80053; 82150; 82728; 83690; 83735; 83880; 84100; 84443; 85025; 85027; 86850; 86900; 86901; 86920; 86922; 87070; 87075; 87205; 94762; 97162-GP; A9270-GY; C9113; J0171; J0330; J0694; J1100; J1170; J1642; J1644; J1940; J2185; J2405; J2704; J2710; J2765; J2795; J2916; J3010; J3411; J3420; J3475; J3490; J7050; J7120; J7121; P9016; Q9967; U0002

== ENCOUNTER 2020-10-17 11:56 | Inpatient (IN) | payer MEDICARE, BC ==
[2020-10-17] MEDS ORDERED: Acetaminophen 650 MG Supp RECTAL PRN (12:11)
[2020-10-17] MEDS ORDERED: Ondansetron 4 MG/2 ML SDV IVPUSH PRN (12:11)
[2020-10-17] MEDS ORDERED: Metoclopramide 10 MG/2 ML SDV IVPUSH PRN (12:12)
[2020-10-17] MEDS: HYDROmorphone/Normal Saline 15 MG/30 ML PCA IV PRN (12:32)
[2020-10-17] MEDS: Dextrose 5%-Lactated Ringers 1,000 ML IV SCH ×2 (12:35→19:41)
[2020-10-17] MEDS ORDERED: Naloxone 0.4 MG/ML SDV IV PRN (13:00)
[2020-10-17] MEDS ORDERED: Iopamidol 612 MG/ML 500 ML Multipack Bottle IV ONE (13:39)
[2020-10-17] MEDS ORDERED: Sodium Chloride 0.9% 10 ML Syringe FLUSH ONE (13:39)
[2020-10-17] MEDS ORDERED: Sodium Chloride 0.9% 80 ML IV SCH (13:45)
[2020-10-17] MEDS ORDERED: diphenhydrAMINE 50 MG/ML SDV IVPUSH PRN (15:00)
[2020-10-17] MEDS ORDERED: diphenhydrAMINE 25 MG Cap PO PRN ×2 (15:01→18:13)
[2020-10-17] MEDS: Pantoprazole 40 MG Vial IV SCH (15:17)
[2020-10-17] MEDS: Venlafaxine 75 MG Tab PO SCH ×2 (15:18→21:43)
--- NOTE | 2020-10-17 15:20 | CT ---
Abdomen Pelvis w Cont CLINICAL HISTORY: Abdominal pain and nausea COMPARISON: 09/25/2020. TECHNIQUE: Transverse scans were obtained from the base of the lungs to the pubic symphysis following oral contrast and IV infusion of contrast.Auto dosage reduction and iterative reconstructiontechniques employed. FINDINGS: The lung bases are clear. The liver shows mild intrahepatic biliary dilatation. The gallbladder has been removed. There are 2 surgical drains in the right upper quadrant extending toward the epigastric region. There is no abnormal fluid collection or obvious inflammation along the track of the drain. Patient is status post bariatric surgery with Caden-en-Y. The spleen has a normal size and shape. The pancreas shows no mass or inflammatory change. The adrenal glands appear normal bilaterally . The kidneys show no mass, stones or hydronephrosis. There is a 1 cm cyst posteriorly in the midpole right kidney unchanged from prior study. The ureters have a normal course and caliber. Bladder has normal contour. Uterus is absent. The aorta has a normal contour. There is no suspicious there is a 2.7 cm fluid collection just above the umbilicus the left. This may represent a small hematoma or seroma. Abscess is felt less likely. retroperitoneal adenopathy. The small intestinal configuration is nonacute. There is a large amount of stool in the distal colon. IMPRESSION: Patient is status post bariatric surgery with Caden-en-Y There are 2 surgical drains from the left into the epigastric region. The drainage tracks are well demarcated. 2.7 cm fluid collection is seen in the left parasagittal region just above the umbilicus anterior abdominal surgical site. This may represent small hematoma or seroma. Abscess felt less likely
[2020-10-17] MEDS ORDERED: MVI, Adult with Vitamin K 10 ML, Thiamine 200 MG, Zinc/Copper/Manganese/Selenium 1 ML i... IV ONE ×4 (17:00)
[2020-10-17] MEDS: Magnesium Sulfate/Water 2 GM/50 ML BAG IV SCH ×2 (17:00→21:43)
[2020-10-17] MEDS: Acetaminophen 325 MG Tab PO PRN (18:14)
[2020-10-17] MEDS ORDERED: Bisacodyl 5 MG Tab PO ONE (20:04)
[2020-10-18] MEDS: Magnesium Sulfate/Water 2 GM/50 ML BAG IV SCH ×5 (03:15→22:11)
[2020-10-18] MEDS: Pantoprazole 40 MG Vial IV SCH ×3 (03:15→14:10)
[2020-10-18] MEDS: LORazepam 2 MG/ML SDV IVPUSH PRN ×2 (04:20→11:40)
[2020-10-18] MEDS ORDERED: Lidocaine 4% Top Soln 50 ML Bottle TOP ONE (07:09)
[2020-10-18] MEDS: Acetaminophen 325 MG Tab PO PRN ×3 (07:21→16:07)
[2020-10-18] MEDS: Levothyroxine 100 MCG Tab PO SCH (08:12)
[2020-10-18] MEDS: Tolterodine 2 MG Tab PO SCH ×2 (08:12→22:20)
[2020-10-18] MEDS: Docusate Sodium 100 MG Cap PO SCH ×2 (08:13→22:08)
[2020-10-18] MEDS: Lubiprostone 24 MCG Cap PO SCH ×2 (08:14→16:05)
[2020-10-18] MEDS: Bisacodyl 5 MG Tab PO SCH ×2 (08:14→22:09)
[2020-10-18] MEDS: Polyethylene Glycol 3350 Powder 17 GM Packet PO SCH ×2 (08:18→23:09)
[2020-10-18] MEDS: Venlafaxine 75 MG Tab PO SCH ×3 (08:22→22:09)
--- NOTE | 2020-10-18 08:36 | PCM.HP.2 ---
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 Low Grade Bile Leak at the duodenal stump Nausea Intractable Abdominal Pain Source of Information: Patient History Limitations: Reports: No Limitations - History of Present Illness Onset of Symptoms: Reports: Gradual Duration of Symptoms: Reports: Getting Worse Location: Reports: Abdomen, Generalized Quality: Reports: Ache, Pressure, Stabbing, Throbbing Severity: Severe (pain scale 8/10) Improves with: Reports: None Worsens with: Reports: None Context: Reports: Sick Contact Associated Symptoms: Reports: Loss of Appetite, Malaise, Nausea/Vomiting, Shortness of Breath, Weakness Abdomen Pain Score (Numeric/FACES): 8 - Related Data Allergies/Adverse Reactions: Allergies Allergy/AdvReac Type Severity Reaction Status Date / Time Sulfa (Sulfonamide Allergy Rash Verified 05/03/14 08:07 Antibiotics) Home Medications: Home Meds ALPRAZolam [Xanax] 0.5 mg PO DAILY PRN 04/26/14 [History] Cyanocobalamin (Vitamin B-12) [Vitamin B-12] 6,000 mcg SL DAILY 04/26/14 [History] Levothyroxine Sodium [Levothyroxine] 100 mcg PO DAILY 09/25/20 [History] Tolterodine [Detrol] 2 mg PO DAILY 09/25/20 [History] Venlafaxine [Effexor] 75 mg PO TID 09/30/20 [History] Docusate Sodium [Colace] 100 mg PO BID #60 cap 10/03/20 [Rx] HYDROmorphone [Dilaudid] 2 mg PO Q4H PRN #42 tablet 10/03/20 [Rx] bisacodyL [Dulcolax] 10 mg PO BID #60 tablet 10/03/20 [Rx] Multivit-Min/Ferrous Gluconate [Multi-Angeli Liquid] 15 dose DAILY 10/17/20 [History] Past Medical History Gastrointestinal History: Reports: Cholelithiasis Genitourinary History: Reports: Urinary Incontinence 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: Other OB/BYN History: 3 preg Musculoskeletal History: Reports: Fibromyalgia Psychiatric History: Reports: Anxiety Endocrine/Metabolic History: Reports: Hypothyroidism Hematologic History: Reports: Anesthesia Reaction, Blood Transfusion(s) - Past Surgical History GI Surgical History: Reports: Bariatric Procedure Other GI Surgeries/Procedures: RNY 2006; removal remnant stomach 2020 Female Surgical History: Reports: Hysterectomy Other Female Surgeries/Procedures: uterus and bladder repair Endocrine Surgical History: Reports: None Musculoskeletal Surgical History: Reports: None Other Oncologic Surgeries/Procedures: new diagnosis Social & Family History - Tobacco Use Used Tobacco, but Quit: No Second Hand Smoke Exposure: No - Caffeine Use Caffeine Use: Reports: Coffee, Soda - Recreational Drug Use Recreational Drug Use: No H&P Review of Systems - Review of Systems: Review Of Systems: See Below General: Reports: Chills, Malaise, Weakness, Fatigue, Decreased Appetite HEENT: Reports: No Symptoms Pulmonary: Reports: Shortness of Breath Cardiovascular: Reports: No Symptoms Gastrointestinal: Reports: Abdominal Pain, Constipation (last BM 4 days ago), Nausea, Vomiting, Other (WALT drains 1 and 2 have increased in the amount of bile drainage.) Genitourinary: Reports: No Symptoms Musculoskeletal: Reports: No Symptoms Skin: Reports: No Symptoms Psychiatric: Reports: No Symptoms Neurological: Reports: No Symptoms Hematologic/Lymphatic: Reports: No Symptoms Immunologic: Reports: No Symptoms Review of Systems Comment:: Remainder Review of Systems Negative for any other pertinent positive or negatives. Exam - Exam Exam: See Below - Vital Signs Vital Signs: Last Vital Signs Temp 100.5 F 10/18/20 07:51 Pulse 116 H 10/18/20 07:22 Resp 16 10/18/20 07:22 BP 127/68 10/18/20 07:22 Pulse Ox 96 10/18/20 07:31 Weight: 160 lb - Exam Quality Assessment: DVT Prophylaxis General: Alert, Oriented, Moderate Distress HEENT: PERRLA Neck: Supple, Trachea Midline Lungs: Clear to Auscultation, Normal Respiratory Effort Cardiovascular: Regular Rate, Regular Rhythm GI/Abdominal Exam: Soft, Guarding, Tender (clear drainage from the lower incision area. WALT drains intact and draining bile colored drainage. ) (Female) Exam: Deferred Rectal (Female) Exam: Deferred Back Exam: Normal Inspection, Full Range of Motion Extremities: Normal Inspection, Normal Range of Motion, No Pedal Edema Skin: Warm, Dry Neurological: Cranial Nerves Intact Neuro Extensive - Mental Status: Alert, Oriented x3 Neuro Extensive - Motor, Sensory, Reflexes: CN II-XII Intact Psychiatric: Alert, Normal Affect, Normal Mood - Patient Data Lab Results Last 24 hrs: Laboratory Results - last 24 hr 10/17/20 10/17/20 10/18/20 Range/Units 12:44 12:44 04:00 WBC 12.9 H 3.0 L (4.5-11.0) K/uL RBC 4.01 6.05 H (3.30-5.50) M/uL Hgb 11.3 L 17.1 H D (12.0-15.0) g/dL Hct 35.9 L 53.1 H (36.0-48.0) % MCV 90 88 (80-98) fL MCH 28 28 (27-31) pg MCHC 32 32 (32-36) % Plt Count 774 H 266 (150-400) K/uL Sodium 136 L (140-148) mmol/L Potassium 3.6 (3.6-5.2) mmol/L Chloride 97 L (100-108) mmol/L Carbon Dioxide 25 (21-32) mmol/L Anion Gap 17.6 H (5.0-14.0) mmol/L BUN 15 D (7-18) mg/dL Creatinine 0.7 (0.6-1.0) mg/dL Est Cr Clr Drug Dosing 65.40 mL/min Estimated GFR (MDRD) > 60 (>60) Glucose 114 H (74-106) mg/dL Calcium 8.8 (8.5-10.1) mg/dL Phosphorus 3.5 (2.5-4.9) mg/dL Magnesium 1.6 L (1.8-2.4) mg/dL Total Bilirubin 0.4 (0.2-1.0) mg/dL AST 14 L D (15-37) U/L ALT 17 D (12-78) U/L Alkaline Phosphatase 167 H (46-116) U/L NT-Pro-B Natriuret Pep 109 (5-125) pg/mL Total Protein 6.9 (6.4-8.2) g/dL Albumin 2.3 L (3.4-5.0) g/dL Globulin 4.6 H (2.3-3.5) g/dL Albumin/Globulin Ratio 0.5 L (1.2-2.2) 10/18/20 Range/Units 04:00 WBC (4.5-11.0) K/uL RBC (3.30-5.50) M/uL Hgb (12.0-15.0) g/dL Hct (36.0-48.0) % MCV (80-98) fL MCH (27-31) pg MCHC (32-36) % Plt Count (150-400) K/uL Sodium 139 L (140-148) mmol/L Potassium 3.6 (3.6-5.2) mmol/L Chloride 100 (100-108) mmol/L Carbon Dioxide 29 (21-32) mmol/L Anion Gap 13.6 (5.0-14.0) mmol/L BUN 9 (7-18) mg/dL Creatinine 0.7 (0.6-1.0) mg/dL Est Cr Clr Drug Dosing 65.40 mL/min Estimated GFR (MDRD) > 60 (>60) Glucose 118 H (74-106) mg/dL Calcium 8.1 L (8.5-10.1) mg/dL Phosphorus 3.3 (2.5-4.9) mg/dL Magnesium (1.8-2.4) mg/dL Total Bilirubin 0.3 (0.2-1.0) mg/dL AST 42 H D (15-37) U/L ALT 30 D (12-78) U/L Alkaline Phosphatase 195 H (46-116) U/L NT-Pro-B Natriuret Pep 55 (5-125) pg/mL Total Protein 5.7 L (6.4-8.2) g/dL Albumin 1.8 L (3.4-5.0) g/dL Globulin 3.9 H (2.3-3.5) g/dL Albumin/Globulin Ratio 0.5 L (1.2-2.2) Result Diagrams: 10/18/20 04:00 10/18/20 04:00 Misael Results Last 24 hrs: Microbiology 10/17/20 12:20 Gram Stain - Final Abdomen - Drainage Wound Culture - Preliminary 10/17/20 12:19 Gram Stain - Final Abdomen - Drainage Wound Culture - Preliminary Sepsis Event Note - Evaluation Sepsis Screening Result: Sepsis Risk - Focused Exam Vital Signs: Vital Signs Temp Temp Pulse Resp BP Pulse Ox 10/18/20 07:51 100.5 F 10/18/20 07:31 96 10/18/20 07:22 101.3 F H 116 H 16 127/68 92 L 10/18/20 07:21 101.3 F H 10/18/20 03:00 100.5 F 112 H 18 125/61 96 10/18/20 00:58 95 10/17/20 23:20 89 L 10/17/20 22:54 97.7 F 111 H 16 103/51 L 91 L - Problem List (1) Linitis plastica SNOMED Code(s): 889841059 ICD Code: C16.9 - MALIGNANT NEOPLASM OF STOMACH, UNSPECIFIED Status: Acute Current Visit: Yes (2) Bile leak, postoperative SNOMED Code(s): 246349077 ICD Code: K91.89 - OTH POSTPROCEDURAL COMPLICATIONS AND DISORDERS OF DGSTV SYS; K83.8 - OTHER SPECIFIED DISEASES OF BILIARY TRACT Status: Acute Current Visit: Yes (3) Abdominal pain SNOMED Code(s): 08148537 ICD Code: R10.9 - UNSPECIFIED ABDOMINAL PAIN Status: Acute Current Visit: No Qualifiers: Abdominal location: generalized Qualified Code(s): R10.84 - Generalized abdominal pain Problem List Initiated/Reviewed/Updated: Yes Orders Last 24hrs: Active Orders 24 hr Category Date Time Status Patient Status [ADT] Routine ADT 10/17/20 12:12 Active Communication Order [RC] ASDIRECTED Care 10/17/20 20:04 Active Communication Order [RC] ASDIRECTED Care 10/18/20 07:15 Active Dietary Supplements [RC] BIDMEALS Care 10/18/20 07:07 Active Intake and Output Strict [RC] ASDIRECTED Care 10/17/20 12:19 Active Up ad Vera [RC] ASDIRECTED Care 10/17/20 12:12 Active Vital Signs [RC] Q6H Care 10/17/20 12:12 Active Bariatric Diet [DIET] Diet 10/18/20 Breakfast Active Bariatric Diet [DIET] Diet 10/18/20 Breakfast Active CBC W/O DIFF,HEMOGRAM [HEME] Timed Lab 10/19/20 04:00 Ordered COMPREHENSIVE METABOLIC PN,CMP [CHEM] Timed Lab 10/19/20 04:00 Ordered CULTURE BLOOD [BC] Stat Lab 10/18/20 07:45 Received CULTURE BLOOD [BC] Stat Lab 10/18/20 07:55 Received CULTURE WOUND + SMEAR [RM] Routine Lab 10/17/20 12:19 Results CULTURE WOUND + SMEAR [RM] Routine Lab 10/17/20 12:20 Results MAGNESIUM [CHEM] Timed Lab 10/19/20 04:00 Ordered PHOSPHORUS [CHEM] Timed Lab 10/19/20 04:00 Ordered PRO B-TYPE NATRIUR PEPT,BNPPRO [CHEM] Timed Lab 10/19/20 04:00 Ordered Acetaminophen [TylenoL] Med 10/17/20 12:10 Active 650 mg PO Q4H PRN Acetaminophen [Tylenol] Med 10/17/20 12:11 Active 650 mg RECTAL Q4H PRN Aztreonam [Azactam] 1 gm Med 10/18/20 08:00 Active Sodium Chloride 0.9% [Normal Saline] 50 ml IV Q8H Dextrose 5%-Lactated Ringers 1,000 ml Med 10/17/20 12:15 Active IV ASDIRECTED Docusate Sodium [Colace] Med 10/18/20 09:00 Active 100 mg PO BID HYDROmorphone/Normal Saline [Dilaudid LAUNDRY ATTENDANT 15 MG in NS Med 10/17/20 12:16 Active 30 ML] 0 mg IV ASDIRECTED PRN LORazepam [Ativan] Med 10/17/20 12:14 Active 0.5 mg IVPUSH Q6H PRN Levothyroxine [Synthroid] Med 10/18/20 07:30 Active 100 mcg PO ACBREAKFAST Lidocaine 2% [Xylocaine 2% Jelly] Med 10/18/20 10:00 Active 0 ml TOP QID Lubiprostone [Amitiza] Med 10/18/20 08:00 Active 24 mcg PO BIDMEALS Magnesium Sulfate/Water [Magnesium Sulfate in Water 2 Med 10/17/20 16:00 Active GM/50 ML] 2 gm in 50 ml IV Q6H Meropenem [Merrem] 500 mg Med 10/18/20 09:00 Active Sodium Chloride 0.9% [Normal Saline] 50 ml IV Q6H Metoclopramide [Reglan] Med 10/17/20 12:12 Active 10 mg IVPUSH Q4H PRN Naloxone [Narcan] Med 10/17/20 13:00 Active 0.1 mg IV ASDIRECTED PRN Ondansetron [Zofran] Med 10/17/20 12:11 Active 4 mg IVPUSH Q4H PRN Pantoprazole [ProTONIX IV] Med 10/17/20 14:00 Active 40 mg IV Q12H Tolterodine [DetroL] Med 10/18/20 09:00 Active 2 mg PO BID Venlafaxine [Effexor] Med 10/17/20 14:00 Active 75 mg PO TID bisacodyL [Dulcolax] Med 10/18/20 09:00 Active 10 mg PO BID diphenhydrAMINE [Benadryl] Med 10/17/20 18:13 Active 25 - 50 mg PO Q4H PRN diphenhydrAMINE [Benadryl] Med 10/17/20 15:00 Active 25 mg IVPUSH Q4H PRN polyethylene glycoL 3350 [MiraLAX] Med 10/18/20 09:00 Active 34 gm PO BID Blood Culture x2 Reflex Set [OM.PC] Urgent Oth 10/18/20 07:22 Ordered SCD [Sequential Compression Device] [OM.PC] Routine Oth 10/17/20 19:46 Ordered Resuscitation Status Routine Resus Stat 10/17/20 12:12 Ordered Medication Orders Acetaminophen (Acetaminophen 325 Mg Tab) 650 mg PO Q4H PRN PRN Reason: ANALGESIA/FEVER Last Admin: 10/18/20 07:21 Dose: 650 mg Documented by: Admin: 10/17/20 18:14 Dose: 650 mg Documented by: MIRNA Acetaminophen (Acetaminophen 650 Mg Supp) 650 mg RECTAL Q4H PRN PRN Reason: ANALGESIA/FEVER Bisacodyl (Bisacodyl 5 Mg Tab) 10 mg PO BID CORTES Last Admin: 10/18/20 08:14 Dose: 10 mg Documented by: IMELDA Diphenhydramine HCl (Diphenhydramine 50 Mg/Ml Sdv) 25 mg IVPUSH Q4H PRN PRN Reason: Itching Last Admin: 10/17/20 15:16 Dose: 25 mg Documented by: MIRNA Diphenhydramine HCl (Diphenhydramine 25 Mg Cap) 25 - 50 mg PO Q4H PRN PRN Reason: Itching Last Admin: 10/17/20 19:39 Dose: 50 mg Documented by: LARON Docusate Sodium (Docusate Sodium 100 Mg Cap) 100 mg PO BID [facility] Last Admin: 10/18/20 08:13 Dose: 100 mg Documented by: IMELDA Hydromorphone HCl (Hydromorphone/Normal Saline 15 Mg/30 Ml Field Technical Specialist) 0 mg IV ASDIRECTED PRN; Protocol PRN Reason: LAUNDRY ATTENDANT PAIN CONTROL Last Admin: 10/17/20 12:32 Dose: 15 mg Documented by: MIRNA Dextrose/Lactated Ringer's (Dextrose 5%-Lactated Ringers) 1,000 mls @ 125 mls/hr IV ASDIRECTED [facility] Last Admin: 10/17/20 19:41 Dose: 125 mls/hr Documented by: Infusion: 10/17/20 19:41 Dose: 125 mls/hr Documented by: Admin: 10/17/20 12:35 Dose: 125 mls/hr Documented by: MIRNA Magnesium Sulfate (Magnesium Sulfate In Water 2 Gm/50 Ml) 2 gm in 50 mls @ 25 mls/hr IV Q6H [facility] Stop: 10/20/20 11:59 Last Admin: 10/18/20 06:08 Dose: Not Given Documented by: Admin: 10/17/20 21:43 Dose: 25 mls/hr Documented by: Infusion: 10/17/20 19:00 Dose: 25 mls/hr Documented by: Admin: 10/17/20 17:00 Dose: 25 mls/hr Documented by: MIRNA Meropenem 500 mg/ Sodium (Chloride) 50 mls @ 100 mls/hr IV Q6H [facility] Aztreonam 1 gm/ Sodium (Chloride) 50 mls @ 100 mls/hr IV Q8H [facility] Last Admin: 10/18/20 08:14 Dose: 100 mls/hr Documented by: IMELDA Levothyroxine Sodium (Levothyroxine 100 Mcg Tab) 100 mcg PO ACBREAKFAST [facility] Last Admin: 10/18/20 08:12 Dose: 100 mcg Documented by: IMELDA Lidocaine HCl (Lidocaine 2% Jelly 30 Ml Tube) 0 ml TOP QID [facility] Lorazepam (Lorazepam 2 Mg/Ml Sdv) 0.5 mg IVPUSH Q6H PRN PRN Reason: ANXIETY Lubiprostone (Lubiprostone 24 Mcg Cap) 24 mcg PO BIDMEALS [facility] Last Admin: 10/18/20 08:14 Dose: 24 mcg Documented by: IMELDA Metoclopramide HCl (Metoclopramide 10 Mg/2 Ml Sdv) 10 mg IVPUSH Q4H PRN PRN Reason: NAUSEA Naloxone HCl (Naloxone 0.4 Mg/Ml Sdv) 0.1 mg IV ASDIRECTED PRN PRN Reason: decreased respiratory rate Ondansetron HCl (Ondansetron 4 Mg/2 Ml Sdv) 4 mg IVPUSH Q4H PRN PRN Reason: Nausea Pantoprazole Sodium (Pantoprazole 40 Mg Vial) 40 mg IV Q12H [facility] Last Admin: 10/18/20 06:08 Dose: Not Given Documented by: Admin: 10/17/20 15:17 Dose: 40 mg Documented by: MIRNA Polyethylene Glycol (Polyethylene Glycol 3350 Powder 17 Gm Packet) 34 gm PO BID [facility] Last Admin: 10/18/20 08:18 Dose: 34 gm Documented by: IMELDA Tolterodine Tartrate (Tolterodine 2 Mg Tab) 2 mg PO BID [facility] Last Admin: 10/18/20 08:12 Dose: 2 mg Documented by: IMELDA Venlafaxine HCl (Venlafaxine 75 Mg Tab) 75 mg PO TID [facility] Last Admin: 10/18/20 08:22 Dose: 75 mg Documented by: Admin: 10/17/20 21:43 Dose: 75 mg Documented by: Admin: 10/17/20 15:18 Dose: 75 mg Documented by: MIRNA Assessment/Plan Comment:: Assessment: Linitis Plastica involving Bypass portion of Stomach. Bile Leak at the duodenal stump Intractable Abdominal Pain Nausea SP RNY Gastric Bypass Surgery Plan: Admit to INpatient Plan of hospitalization greater than 92 hours. See Copy of Orders in EMR. Rachel Villanueva 10/17/2020
[2020-10-18] MEDS: Dextrose 5%-Lactated Ringers 1,000 ML IV SCH (09:46)
[2020-10-18] MEDS: Meropenem 500 MG in Sodium Chloride 0.9% 50 ML IV SCH ×3 (09:46→22:09)
[2020-10-18] MEDS: Lidocaine 2% Jelly 30 ML Tube TOP SCH ×3 (10:31→22:19)
--- NOTE | 2020-10-18 12:05 | PN ---
DATE OF SERVICE: 10/18/2020 SUBJECTIVE: Pat did spike a temperature of 101. [place] [address] to 2.9. She had an oral intake at 240. WALT drains remain intact. Pain is controlled with the BATTER MIXER. She reports chills, feeling flushed. States has not had a bowel movement, now it is on day 5. Reports most of her pain around the WALT drain sites. REVIEW OF SYSTEMS: Remainder of review of systems negative for any pertinent positives and negatives. OBJECTIVE: GENERAL: Emelyn Alfredo is a pleasant 65-year-old female. Color is flushed, looks ill. HEENT: Negative. NECK: Supple. HEART: Regular rate and rhythm. Tachycardic. ABDOMEN: Incision was opened the lower 2 inches by Zay Betancourt MD, and packed with gauze. WALT drains 1 and 2 remain draining bile-colored substance. Abdominal binder has been on. EXTREMITIES: Without peripheral edema. ASSESSMENT: 1. Linitis plastica involving the bypassed portion of the stomach. 2. Low-grade bile leak from the duodenal stump. 3. Intractable abdominal pain. 4. Nausea. PLAN: 1. Meropenem 500 mg IV q.6 hours. 2. Azactam 1 g IV q.8 hours. 3. Colace 100 mg p.o. b.i.d. 4. Dulcolax 10 mg p.o. b.i.d. 5. Step 2 gastric bypass diet. 6. MiraLax 34 g b.i.d. 7. Lidocaine gel apply every 6 hours to area around the WALT drain p.r.n. pain. 8. Pack open incision with dry 4x4s and cover with an ABD. Do this b.i.d. 9. May shower. 10.Step 2 gastric bypass diet. 11.Amitiza 24 mcg b.i.d. oral. 12.Check blood cultures x2 stat. Call with results. 13.We will evaluate p.r.n. or in a.m. 14.Labs are ordered for a.m., CBC, CMP, mag, phos, and BNP. Rachel Taylor PA-C /[id number]
[2020-10-18] MEDS: HYDROmorphone/Normal Saline 15 MG/30 ML PCA IV PRN (17:41)
[2020-10-19] MEDS: Dextrose 5%-Lactated Ringers 1,000 ML IV SCH ×2 (01:16→13:56)
[2020-10-19] MEDS: Pantoprazole 40 MG Vial IV SCH (03:00)
[2020-10-19] MEDS: Meropenem 500 MG in Sodium Chloride 0.9% 50 ML IV SCH ×4 (03:00→21:09)
[2020-10-19] MEDS: Magnesium Sulfate/Water 2 GM/50 ML BAG IV SCH ×4 (05:15→21:50)
[2020-10-19] MEDS: Lidocaine 2% Jelly 30 ML Tube TOP SCH ×4 (05:16→21:11)
[2020-10-19] MEDS: Acetaminophen 325 MG Tab PO PRN ×3 (07:49→19:08)
--- NOTE | 2020-10-19 08:58 | PN ---
DATE OF SERVICE: 10/19/2020 SUBJECTIVE: Lucero reports that she still has quite a bit of pain. On a pain scale of 1 to 10, it is an 8/10. She requests to be changed from the WOOD BUFFER to oral pain medication because she states she does get the pain under control, falls asleep and wakes up, and it takes her quite a while to catch up again. Oral intake on ice chips was 840 and WALT drains put out 150 and 210 of a bilious color. Urine output 1475. She did spike a temp of 101.3 and blood cultures were obtained since the temperature spike. Her temperature highest was 99.7. Has not had a bowel movement yet and this is chronic for her. She was started on Colace, Dulcolax, and Amitiza yesterday. Has no other concerns. REVIEW OF SYSTEMS: All 12 systems reviewed and negative for any other pertinent positives and negatives. OBJECTIVE: GENERAL: Lucero Price is a pleasant 65-year-old female. She is alert and orientated. Looks like she is feeling better today, more talkative. VITAL SIGNS: TPR is 99.7, 94, 16, blood pressure 131/79. HEENT: Negative. NECK: Supple. HEART: Regular rate and rhythm. LUNGS: Clear. ABDOMEN: Dressings dry and intact. The open area has been packed by nursing staff twice daily. WALT drains 1 and 2 as above. EXTREMITIES: Without peripheral edema. ASSESSMENT: 1. Linitis plastica involving the bypassed portion of stomach. 2. Low-grade bile leak from the duodenal stump. 3. Intractable abdominal pain. 4. Nausea. PLAN: 1. Albumin 25 g IV daily. 2. Step 3 gastric bypass diet. 3. WALT drains set up to continuous wall suction. May discontinue when the patient is ambulating in the reeves or taking a shower. 4. Lab check CBC, CMP, mag, phos in a.m. 5. Discontinue WOOD BUFFER per patient's request. 6. Oxycodone 5 mg q.4 hours p.r.n. pain. 7. Dulcolax suppository b.i.d. until the patient has a bowel movement. 8. May have prune juice or decaf coffee. 9. We will evaluate p.r.n. or in a.m. Rachel Taylor PA-C /[id number]
[2020-10-19] MEDS: Docusate Sodium 100 MG Cap PO SCH ×2 (09:04→21:12)
[2020-10-19] MEDS: Levothyroxine 100 MCG Tab PO SCH (09:05)
[2020-10-19] MEDS: Lubiprostone 24 MCG Cap PO SCH ×2 (09:06→16:41)
[2020-10-19] MEDS: Tolterodine 2 MG Tab PO SCH ×2 (09:06→21:12)
[2020-10-19] MEDS: Bisacodyl 5 MG Tab PO SCH ×2 (09:07→21:12)
[2020-10-19] MEDS: Bisacodyl 10 MG Supp RECTAL SCH ×2 (09:08→21:12)
[2020-10-19] MEDS: Venlafaxine 75 MG Tab PO SCH ×3 (09:08→21:12)
[2020-10-19] MEDS: Polyethylene Glycol 3350 Powder 17 GM Packet PO SCH ×2 (09:09→21:11)
[2020-10-19] MEDS: LORazepam 2 MG/ML SDV IVPUSH PRN (09:38)
[2020-10-19] MEDS: oxyCODONE 5 MG Tab PO PRN (13:56)
[2020-10-19] MEDS: Pantoprazole 40 MG Tab.CR PO SCH (16:26)
[2020-10-20] MEDS: Dextrose 5%-Lactated Ringers 1,000 ML IV SCH (01:44)
[2020-10-20] MEDS: Meropenem 500 MG in Sodium Chloride 0.9% 50 ML IV SCH ×4 (03:46→20:11)
[2020-10-20] MEDS: Acetaminophen 325 MG Tab PO PRN ×2 (03:52→08:01)
[2020-10-20] MEDS: Magnesium Sulfate/Water 2 GM/50 ML BAG IV SCH ×2 (04:41→14:42)
[2020-10-20] MEDS: Lidocaine 2% Jelly 30 ML Tube TOP SCH ×6 (04:56→21:49)
[2020-10-20] MEDS: Pantoprazole 40 MG Tab.CR PO SCH ×2 (07:50→16:19)
[2020-10-20] MEDS: Lubiprostone 24 MCG Cap PO SCH ×2 (07:50→16:19)
[2020-10-20] MEDS: Levothyroxine 100 MCG Tab PO SCH (07:50)
[2020-10-20] MEDS ORDERED: Dextrose 5%-Lactated Ringers 1,000 ML IV SCH (07:54)
[2020-10-20] MEDS ORDERED: Acetaminophen 325 MG Tab PO PRN (08:18)
[2020-10-20] MEDS: Bisacodyl 10 MG Supp RECTAL SCH ×2 (09:27→20:09)
[2020-10-20] MEDS: Venlafaxine 75 MG Tab PO SCH ×3 (09:50→20:09)
[2020-10-20] MEDS: Docusate Sodium 100 MG Cap PO SCH ×2 (09:50→20:09)
[2020-10-20] MEDS: Tolterodine 2 MG Tab PO SCH ×2 (09:50→20:09)
[2020-10-20] MEDS: Bisacodyl 5 MG Tab PO SCH ×2 (09:50→20:09)
[2020-10-20] MEDS: Polyethylene Glycol 3350 Powder 17 GM Packet PO SCH ×2 (09:51→20:10)
--- NOTE | 2020-10-20 11:23 | PN ---
DATE OF SERVICE: 10/20/2020 SUBJECTIVE: Lucero states she is feeling better. She still has an increased amount of pain. CLOTHING PATTERNMAKER order was discontinued yesterday, but she is still using it and it remains in the room. She again requested that be discontinued. Has not had a bowel movement yet and the WALT drains are put to wall suction and together they put out 300 mL. REVIEW OF SYSTEMS: Remainder of review of systems negative for any pertinent positives or negatives. OBJECTIVE: GENERAL: Lucero Price is a pleasant 65-year-old female. She looks much better. VITAL SIGNS: TPR is 97.6, 101, 18. Blood pressure 136/99. HEENT: Negative. NECK: Supple. HEART: Regular rate and rhythm. LUNGS: Clear. ABDOMEN: Less tender. WALT drains are to wall suction. Dressing is dry and intact. The open area dressings are changed twice a day. EXTREMITIES: Without peripheral edema. ASSESSMENT: 1. Linitis plastica involving the bypassed portion of stomach. 2. Low-grade bile leak from the duodenal stump. 3. Intractable abdominal pain. 4. Nausea. PLAN: 1. Order written again to discontinue CLOTHING PATTERNMAKER. 2. Soapsuds 1 L enema. 3. Physical therapy. 4. Check CBC, CMP, mag, phos in a.m. 5. The patient is on Azactam and meropenem IV antibiotics. The cultures did come back Strep aureus and Strep viridans. 6. Tylenol dosage increased to 1000 mg every 6 hours. 7. We will evaluate p.r.n. or in a.m. Rachel Taylor PA-C /[id number]
[2020-10-20] MEDS: oxyCODONE 5 MG Tab PO PRN ×3 (12:02→20:08)
[2020-10-20] MEDS: Acetaminophen 500 MG Tab PO PRN (14:42)
[2020-10-20] MEDS ORDERED: hydrOXYzine HCl 25 MG Tab PO PRN (18:01)
[2020-10-20] MEDS ORDERED: hydrOXYzine HCL 100 MG/2 ML SDV IM PRN (18:01)
[2020-10-20] MEDS: ALPRAZolam 0.5 MG Tab PO PRN (19:10)
[2020-10-21] MEDS: Acetaminophen 500 MG Tab PO PRN ×4 (00:04→23:19)
[2020-10-21] MEDS: oxyCODONE 5 MG Tab PO PRN ×6 (00:04→23:19)
[2020-10-21] MEDS: Meropenem 500 MG in Sodium Chloride 0.9% 50 ML IV SCH ×4 (04:07→21:10)
[2020-10-21] MEDS: Lidocaine 2% Jelly 30 ML Tube TOP SCH ×4 (06:16→21:11)
[2020-10-21] MEDS: Levothyroxine 100 MCG Tab PO SCH (07:37)
[2020-10-21] MEDS: Pantoprazole 40 MG Tab.CR PO SCH ×2 (07:37→16:40)
[2020-10-21] MEDS: Lubiprostone 24 MCG Cap PO SCH ×2 (07:40→16:40)
[2020-10-21] MEDS: Docusate Sodium 100 MG Cap PO SCH ×2 (09:22→21:10)
[2020-10-21] MEDS: Venlafaxine 75 MG Tab PO SCH ×3 (09:22→21:11)
[2020-10-21] MEDS: Tolterodine 2 MG Tab PO SCH ×2 (09:22→21:11)
[2020-10-21] MEDS ORDERED: Metoclopramide 10 MG/2 ML SDV IVPUSH PRN (09:26)
[2020-10-22] MEDS: Meropenem 500 MG in Sodium Chloride 0.9% 50 ML IV SCH ×4 (02:58→21:44)
[2020-10-22] MEDS: Lidocaine 2% Jelly 30 ML Tube TOP SCH ×4 (05:50→21:38)
[2020-10-22] MEDS: oxyCODONE 5 MG Tab PO PRN ×4 (07:43→21:34)
[2020-10-22] MEDS: Acetaminophen 500 MG Tab PO PRN ×3 (07:44→21:35)
[2020-10-22] MEDS: Pantoprazole 40 MG Tab.CR PO SCH ×2 (07:46→16:30)
[2020-10-22] MEDS: Lubiprostone 24 MCG Cap PO SCH ×2 (07:46→17:33)
[2020-10-22] MEDS: Levothyroxine 100 MCG Tab PO SCH (07:46)
[2020-10-22] MEDS: Magnesium Oxide 400 MG Tab PO SCH (10:05)
[2020-10-22] MEDS: Tolterodine 2 MG Tab PO SCH ×2 (10:05→21:34)
[2020-10-22] MEDS: Polyethylene Glycol 3350 Powder 17 GM Packet PO SCH (10:06)
[2020-10-22] MEDS: Venlafaxine 75 MG Tab PO SCH ×3 (10:06→21:34)
[2020-10-22] MEDS: Docusate Sodium 100 MG Cap PO SCH ×2 (10:06→21:34)
--- NOTE | 2020-10-22 11:52 | PN ---
DATE OF SERVICE: 10/22/2020 SUBJECTIVE: Emelyn feels much better. She states she has been up ambulating. Pain is better controlled with oxycodone 5 mg when she takes 2. She has been up ambulating, sitting in the chair. Reports no appetite. Oral intake 1690, urine output 2100. WALT drains 1 and 2 to wall suction. In the past 24 hours put out about 50 mL of bilious substance. Remainder of review of systems negative for any pertinent positives and negatives. OBJECTIVE: GENERAL: Lucero Price is a pleasant 65-year-old female. She is alert and orientated. Color is much improved. VITAL SIGNS: TPR 97.5, 100, 16. Blood pressure 137/65. HEENT: Negative. NECK: Supple. HEART: Regular rate and rhythm. LUNGS: Clear. ABDOMEN: Dressings dry and intact. Abdominal binder is on. EXTREMITIES: Without peripheral edema. ASSESSMENT: 1. Open abdominal incision. 2. 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 3. Low-grade bile leak from duodenal stump. 4. Intractable abdominal pain, resolving with medications. 5. Nausea, resolved. PLAN: Continue same diet. Magnesium oxide 400 mg once daily for a magnesium of 1.5. Hemoglobin today is 9.7, but white count is 5.5. We will evaluate p.r.n. or in a.m. Rachel Taylor PA-C /[id number]
--- NOTE | 2020-10-22 14:25 | PN ---
DATE OF SERVICE: 10/21/2020 SUBJECTIVE: Lucero states that she is feeling quite a bit better. Her bowels started to work and she has had a total of 5 bowel movements, increase in pain she states from getting up and having to use the restroom more frequently. Her oxycodone was increased where she can get 5 to 10 p.r.n., and she states that made a difference. On a step 3 diet, oral intake was 850. WALT drains remained to wall suction, and past 24 hours put out 200 mL of a bilious colored drainage. Bowel movements as stated 5. Vital signs have been stable. REVIEW OF SYSTEMS: Remainder of review of systems negative for any pertinent positives and negatives. OBJECTIVE: GENERAL: Lucero Price is a pleasant 65-year-old female. She does look much better today, talkative. VITAL SIGNS: TPR is 98.2, 96, 14, blood pressure 126/59. HEENT: Negative. NECK: Supple. HEART: Regular rate and rhythm. LUNGS: Clear. ABDOMEN: Dressing dry and intact. Abdominal binder is on. EXTREMITIES: Without peripheral edema. ASSESSMENT: 1. 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 2. Low-grade bile leak from duodenal stump. 3. Intractable abdominal pain, resolving. 4. Nausea, resolving. PLAN: 1. Discontinue the Dulcolax oral tabs. Continue Amitiza, Colace. MiraLAX will be decreased to 17 g daily to keep her bowels going. 2. Protein supplements q.i.d. in addition to her step-3 diet and check CBC, CMP, mag, phos in a.m. 3. We will evaluate p.r.n. or in a.m. IV will be saline locked to avoid fluid overload. Rachel Taylor PA-C /[id number]
[2020-10-23] MEDS: oxyCODONE 5 MG Tab PO PRN ×3 (03:11→21:32)
[2020-10-23] MEDS: Meropenem 500 MG in Sodium Chloride 0.9% 50 ML IV SCH ×4 (03:15→21:32)
[2020-10-23] MEDS: Lidocaine 2% Jelly 30 ML Tube TOP SCH ×4 (05:55→21:36)
[2020-10-23] MEDS: Acetaminophen 500 MG Tab PO PRN ×2 (07:47→21:32)
[2020-10-23] MEDS: Pantoprazole 40 MG Tab.CR PO SCH ×2 (07:47→15:43)
[2020-10-23] MEDS: Levothyroxine 100 MCG Tab PO SCH (07:47)
--- NOTE | 2020-10-23 08:13 | PN ---
DATE OF SERVICE: 10/23/2020 SUBJECTIVE: Lucero reports nausea on and off, but has improved. Continues to have abdominal pain. Oxycodone alternating with Tylenol. She states it helps her pain. Has been up ambulating. Oral intake 1775. Reports having no appetite, and she states this is not new. It has been this way for approximately six months. Urine output 1850. WALT drain together put out 150 mL and continued to be on a hooked up to wall suction. Bowel movements, one yesterday. Remainder of review of systems negative for any pertinent positives and negatives. OBJECTIVE: GENERAL: Lucero is a pleasant 65-year-old female. She is alert and orientated. Daily looks better. VITAL SIGNS: TPR is 97.7, 98, 14. Blood pressure 132/64. HEENT: Negative. NECK: Supple. HEART: Regular rate and rhythm. LUNGS: Clear. ABDOMEN: Dressings dry and intact. Lower abdominal dressing will be measured by nursing staff today. It remains to be pink, but thought to be a little bit deeper than it was originally. EXTREMITIES: Without peripheral edema. ASSESSMENT: 1. Open abdominal incision. 2. 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 3. Low-grade bile leak from duodenal stump. 4. Intractable abdominal pain, resolving with medication. 5. Nausea, intermittent. PLAN: Per patient request, Effexor 75 mg increasing to taking two t.i.d. and check CBC, CMP, mag, phos, BNP, and abdomen. We will evaluate p.r.n. or in a.m. Rachel Taylor PA-C /[id number]
[2020-10-23] MEDS: Lubiprostone 24 MCG Cap PO SCH ×2 (08:33→17:27)
[2020-10-23] MEDS ORDERED: Venlafaxine 75 MG Tab PO SCH (09:00)
[2020-10-23] MEDS: Venlafaxine 75 MG Tab PO SCH ×3 (09:15→21:33)
[2020-10-23] MEDS: Tolterodine 2 MG Tab PO SCH ×2 (09:15→21:33)
[2020-10-23] MEDS: Docusate Sodium 100 MG Cap PO SCH ×2 (09:15→21:33)
[2020-10-23] MEDS: Polyethylene Glycol 3350 Powder 17 GM Packet PO SCH (09:16)
[2020-10-23] MEDS: ALPRAZolam 0.5 MG Tab PO PRN (09:29)
[2020-10-23] MEDS: Magnesium Oxide 400 MG Tab PO SCH (10:19)
[2020-10-24] MEDS: oxyCODONE 5 MG Tab PO PRN ×2 (01:17→05:31)
[2020-10-24] MEDS: Meropenem 500 MG in Sodium Chloride 0.9% 50 ML IV SCH ×4 (02:00→21:42)
[2020-10-24] MEDS: Lidocaine 2% Jelly 30 ML Tube TOP SCH ×5 (05:31→21:42)
[2020-10-24] MEDS: Levothyroxine 100 MCG Tab PO SCH (07:10)
[2020-10-24] MEDS: Pantoprazole 40 MG Tab.CR PO SCH ×2 (07:10→15:52)
--- NOTE | 2020-10-24 08:03 | PN ---
DATE OF SERVICE: 10/24/2020 SUBJECTIVE: Lucero had a good day yesterday and surya, 2 bowel movements. Oral intake 1840, output 2650. WALT drains put out during the day 125 mL of bilious drainage and 0 during the night. Pain is controlled. REVIEW OF SYSTEMS: Remainder of review of systems negative for any pertinent positives and negatives. OBJECTIVE: GENERAL: Lucero Price is a pleasant 65-year-old female. She is alert, orientated. VITAL SIGNS: TPR is 96, 92, 16, blood pressure 123/60. HEENT: Negative. NECK: Supple. HEART: Regular rate and rhythm. LUNGS: Clear. ABDOMEN: Open incision examined by Zay Betancourt MD. Healing well. Dressing otherwise dry and intact. Abdominal binder is on. EXTREMITIES: Without peripheral edema. ASSESSMENT: 1. Open abdominal incision. 2. 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 3. Low-grade bile leak from duodenal stump. 4. Intractable abdominal pain, resolving. 5. Intermittent nausea. PLAN: WALT drains put to dependent drainage. Drain each WALT drain. Measure and record amount every 4 hours during the day and from 2200 hours to 0500 hours. Strip drain, measure and record 1 time unless half full. We will evaluate p.r.n. or in a.m. Plan discharge in a.m. Rachel Taylor PA-C /[id number]
[2020-10-24] MEDS: Lubiprostone 24 MCG Cap PO SCH ×2 (08:42→16:42)
[2020-10-24] MEDS: Venlafaxine 75 MG Tab PO SCH ×3 (08:42→21:43)
[2020-10-24] MEDS: Tolterodine 2 MG Tab PO SCH ×2 (08:42→21:43)
[2020-10-24] MEDS: Docusate Sodium 100 MG Cap PO SCH ×2 (08:43→21:43)
[2020-10-24] MEDS: Magnesium Oxide 400 MG Tab PO SCH (08:43)
[2020-10-24] MEDS: Polyethylene Glycol 3350 Powder 17 GM Packet PO SCH (08:45)
[2020-10-24] MEDS: Acetaminophen 500 MG Tab PO PRN ×2 (09:18→18:27)
[2020-10-24] MEDS: ALPRAZolam 0.5 MG Tab PO PRN (22:51)
[2020-10-25] MEDS: Meropenem 500 MG in Sodium Chloride 0.9% 50 ML IV SCH (03:49)
[2020-10-25] MEDS: Acetaminophen 500 MG Tab PO PRN (06:03)
[2020-10-25] MEDS: Lidocaine 2% Jelly 30 ML Tube TOP SCH ×2 (06:04→08:53)
[2020-10-25] MEDS: Pantoprazole 40 MG Tab.CR PO SCH (07:27)
[2020-10-25] MEDS: Levothyroxine 100 MCG Tab PO SCH (07:27)
[2020-10-25] MEDS: Lubiprostone 24 MCG Cap PO SCH (07:27)
[2020-10-25] MEDS: Polyethylene Glycol 3350 Powder 17 GM Packet PO SCH (08:52)
[2020-10-25] MEDS: Tolterodine 2 MG Tab PO SCH (08:52)
[2020-10-25] MEDS: Magnesium Oxide 400 MG Tab PO SCH (08:52)
[2020-10-25] MEDS: Docusate Sodium 100 MG Cap PO SCH (08:52)
[2020-10-25] MEDS: Venlafaxine 75 MG Tab PO SCH (08:52)
[2020-10-25] MEDS: ALPRAZolam 0.5 MG Tab PO PRN (09:05)
--- NOTE | 2020-10-25 09:12 | DISCH ---
ADMISSION DIAGNOSES: Low-grade bile leak at the duodenal stump, intractable abdominal pain, nausea, linitis plastica involving the bypassed portion of the stomach. DISCHARGE DIAGNOSES: 1. Open abdominal incision. 2. Linitis plastica involving the bypassed portion of the stomach. 3. Low-grade bile leak from the duodenal stump. 4. Intractable abdominal pain, resolving. 5. Intermittent nausea. 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 She presented to the clinic with severe pain, nausea, vomiting on 10/17/2020 and was admitted to the hospital, started on antibiotics. Appropriate lab work was done. IV fluids for dehydration. On 10/18/2020, she was started on meropenem and Azactam, colon stimulation, step 2 gastric bypass diet along with the Amitiza. Blood cultures were obtained stat due to temperature max of over 101. On 10/19/2020, she was started on albumin 25 g IV daily. Diet was advanced to step 3 gastric bypass diet. 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 She continued to be constipated. On 10/20/2020, she was given a soapsuds enema with good results. Cultures came back as Strep aureus and Strep viridans. Tylenol dosage was increased to 1000 every 6 hours. On 10/21/2020, she started having bowel movements and did feel better. Continued with MiraLax and Amitiza. Protein supplements were added to her diet and IV was saline locked. Continued to show some slow improvement. On 10/22/2020, magnesium oxide orally was added. White count looked good. Blood tests were monitored. Pain was better controlled. On 10/23/2020, the patient requested her Effexor increased which she was on prior and this was done. On 10/24/2020, condition continued to improve. Her open incision continued to be dressed twice a day. Her WALT drains were put to dependent suction. On 10/25/2020, she was able to be discharged to home. She was having 1 to 2 bowel movements a day and oral intake increased to 0. Urine output was 3300. WALT drain put out 75 and 35, 24 hours prior to discharge, and the drainage was a light rai serosanguineous. Lucero was able to be discharged to home without any complications. PHYSICAL EXAMINATION: GENERAL: Lucero Price is a pleasant 65-year-old female. VITAL SIGNS: Height is 5 feet 2.99 inches, weight is 160 pounds. TPR is 97, 96, 15, blood pressure 138/69. HEENT: Negative. NECK: Supple. HEART: Regular rate and rhythm. LUNGS: Clear. ABDOMEN: Dressings dry and intact. The small area that is open in her lower incision remains to be clean and dry. EXTREMITIES: Without peripheral edema. WALT drains are as noted above. DISPOSITION: Discharged to home. CONDITION: Stable and improving. HOME MEDICATIONS: 1. Amitiza 24 mcg p.o. b.i.d., #60. Prior office put through, so her insurance will pay for it. 2. Colace 100 mg p.o. b.i.d., #60. 3. Effexor 150 mg p.o. t.i.d., #180. 4. Mag-Oxide 400 mg p.o. daily, #100. 5. MiraLax 17 g p.o. daily, #100. 6. Oxycodone 5 mg every 4 hours p.r.n. pain, #42. 7. She is to continue taking Tylenol 1000 mg every 6 hours. 8. Xanax 0.5 mg p.o. daily p.r.n. 9. Vitamin B12 1000 mcg sublingual daily. 10.Levothyroxine 100 mcg oral daily. 11.Detrol 2 mg p.o. daily. DIET: Step 4 gastric bypass diet. Try to obtain 65 g of protein in 64 ounces of fluid. ACTIVITY: No lifting greater than 10 pounds for 6 weeks. OTHER ACTIVITY: Walk 6 times daily inside your home. Driving: Do not drive within 8 hours of taking oxycodone. Shower/bathing: May shower. Keep operative site clean and dry. Pack open incision with gauze and cover with an ABD twice daily. Wear abdominal binder for 6 weeks if tolerated. Notify provider if any fever, increased pain, swelling, redness, drainage, nausea, vomiting. SPECIAL INSTRUCTIONS: Strip, empty, measure, and record amount of drainage from WALT drains and note the color every 4 hours during the day, do it before bed and then when waking up in the morning. /[id number]
== END 2020-10-25 11:01 | disposition home or self-care (01) | DRG 394 ==
LOC: JP.MS 11:56
PROVIDERS: ADMIT Surgery; ATTEND Surgery
PROC: XW033N5 Introduction of Meropenem-vaborbactam Anti-infective into Peripheral Vein, Percutaneous Approach, New Technology Group 5 (ICD-10-PCS; principal; 2020-10-17)
DX: K91.89 Other postprocedural complications and disorders of digestive system (principal); C16.9 Malignant neoplasm of stomach, unspecified; M79.7 Fibromyalgia; F41.9 Anxiety disorder, unspecified; E03.9 Hypothyroidism, unspecified; K83.8 Other specified diseases of biliary tract; R10.84 Generalized abdominal pain; E86.0 Dehydration; K59.00 Constipation, unspecified; Z88.2 Allergy status to sulfonamides; Z79.890 Hormone replacement therapy; Z79.899 Other long term (current) drug therapy; Z90.710 Acquired absence of both cervix and uterus; Z98.84 Bariatric surgery status
CPT/HCPCS: 36415; 74177; 74177-26; 80053; 83735; 83880; 84100; 85027; 87040; 87070; 87077; 87186; 87205; 94762; 97110-GP; 97162-GP; 97530-GP; 97535-GP; A9270-GY; C9113; J1170; J1200; J2060; J2185; J2405; J3411; J3475; J3490; J7120; J7121; P9047; Q9967

== ENCOUNTER 2020-11-22 08:44 | Inpatient (IN) | payer MEDICARE, BC ==
[2020-11-22] MEDS ORDERED: Lactated Ringers 1,000 ML IV ONE (09:15)
[2020-11-22] MEDS ORDERED: HYDROmorphone/Normal Saline 15 MG/30 ML PCA IV PRN (09:23)
[2020-11-22] MEDS ORDERED: Acetaminophen 1,000 MG in Premix Bag 1 BAG IV ONE (09:30)
[2020-11-22] MEDS: Linezolid 600 MG in Premix Bag 1 BAG IV SCH ×2 (09:42→21:04)
[2020-11-22] MEDS ORDERED: Lactated Ringers 1,000 ML IV SCH (10:00)
[2020-11-22] MEDS ORDERED: Naloxone 0.4 MG/ML SDV IV PRN (10:00)
--- NOTE | 2020-11-22 10:23 | PCM.CONS ---
H&P History of Present Illness - General Date of Service: 11/22/20 Admit Problem/Dx: Admission Diagnosis/Problem Admission Diagnosis/Problem Sepsis Source of Information: Patient, Family, Provider History Limitations: Reports: No Limitations - History of Present Illness Initial Comments - Free Text/Narative: CC: I can't keep anything down HPI: Emelyn was sent from the clinic for admission and management of sepsis with presumed intra-abdominal source. I was asked to see her by Dr. Betancourt regarding sepsis. She reports that she has not felt well over the past 2 weeks. She has had increasing difficulty with nausea and vomiting. She has been having difficulty keeping even fluids down over the past few days. She has had very minimal intake. She does not report any abdominal pain though she is very uncomfortable with any sort of palpation of her abdomen. She has had a couple of days of diarrhea but does report that she has been taking laxatives. She felt warm yesterday but has not measured any fevers. She has had a very mild nighttime cough the past 2 nights. She does not feel short of breath. She does not have any pleuritic chest pain. No obvious sick contacts. She has [address] from her last surgery and these have been stable with one draining brown fluid and one draining more of a cold serosanguineous liquid. When she was in the clinic she was noted to be tachycardic and looked ill so she was sent to the hospital for direct admission. - Related Data Allergies/Adverse Reactions: Allergies Allergy/AdvReac Type Severity Reaction Status Date / Time Sulfa (Sulfonamide Allergy Rash Verified 11/22/20 13:00 Antibiotics) Home Medications: Home Meds ALPRAZolam [Xanax] 0.5 mg PO DAILY PRN 04/26/14 [History] Cyanocobalamin (Vitamin B-12) [Vitamin B-12] 6,000 mcg SL DAILY 04/26/14 [History] Levothyroxine Sodium [Levothyroxine] 100 mcg PO DAILY 09/25/20 [History] Tolterodine [Detrol] 2 mg PO DAILY 09/25/20 [History] Multivit-Min/Ferrous Gluconate [Multi-Angeli Liquid] 15 dose DAILY 10/17/20 [History] Acetaminophen [Tylenol Extra Strength] 1,000 mg PO Q6H PRN tablet 10/24/20 [Rx] Docusate Sodium [Colace] 100 mg PO BID #60 cap 10/24/20 [Rx] Lubiprostone [Amitiza] 24 mcg PO BIDMEALS #60 cap 10/24/20 [Rx] Magnesium Oxide 400 mg PO DAILY #100 tablet 10/24/20 [Rx] Venlafaxine [Effexor] 150 mg PO TID #180 tablet 10/24/20 [Rx] oxyCODONE 5 mg PO Q4H PRN #42 tablet 10/24/20 [Rx] polyethylene glycoL 3350 [MiraLAX] 17 gm PO DAILY #100 packet 10/24/20 [Rx] Past Medical History Gastrointestinal History: Reports: Cholelithiasis Genitourinary History: Reports: Urinary Incontinence 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: Other OB/BYN History: 3 preg Musculoskeletal History: Reports: Fibromyalgia Psychiatric History: Reports: Anxiety Endocrine/Metabolic History: Reports: Hypothyroidism Hematologic History: Reports: Anesthesia Reaction, Blood Transfusion(s) - Past Surgical History GI Surgical History: Reports: Bariatric Procedure Other GI Surgeries/Procedures: RNY 2005; removal remnant stomach 2020 Female Surgical History: Reports: Hysterectomy Other Female Surgeries/Procedures: uterus and bladder repair Endocrine Surgical History: Reports: None Musculoskeletal Surgical History: Reports: None Other Oncologic Surgeries/Procedures: new diagnosis Social & Family History - Family History Cardiac: Denies: CAD - Tobacco Use Tobacco Use Status *Q: Unknown Ever Used Tobacco Tobacco Use Within Last Twelve Months: No - Caffeine Use Caffeine Use: Reports: Coffee, Soda - Alcohol Use Alcohol Use History: No H&P Review of Systems - Review of Systems: Review Of Systems: See Below Free Text/Narrative: A complete 12 point review of systems was obtained. Pertinent positives and negatives are noted in the history of present illness. All other systems were reviewed and were negative except as noted. Exam - Exam Exam: See Below - Vital Signs Vital Signs: Last Vital Signs Temp 38.9 C H 11/22/20 08:51 Pulse Resp 35 H 11/22/20 08:51 BP 156/79 H 11/22/20 08:51 Pulse Ox 93 L 11/22/20 08:51 - Exam Quality Assessment: No: Supplemental Oxygen General: Alert, Oriented, Cooperative, Mild Distress HEENT: Conjunctiva Clear. No: Mucosa Moist & Hodgkins (dry), Scleral Icterus Neck: Supple, Trachea Midline. No: Lymphadenopathy Lungs: Clear to Auscultation. No: Normal Respiratory Effort (mild tachypnea) Cardiovascular: Regular Rhythm, Tachycardia. No: Systolic Murmur GI/Abdominal Exam: Soft, No Distention, Tender (moderate diffuse ), Other (abdomen quite warm to touch ). No: Normal Bowel Sounds Extremities: No Pedal Edema. No: Increased Warmth Peripheral Pulses: 2+: Dorsalis Pedis (L), Dorsalis Pedis (R) Skin: Warm, Dry Neuro Extensive - Mental Status: Alert, Oriented x3, Nl Response to Commands Neuro Extensive - Motor, Sensory, Reflexes: No: Dysarthria, Abnormal Motor, Tremor Psychiatric: Alert, Normal Affect - Patient Data Lab Results Last 24 hrs: Laboratory Results - last 24 hr 11/22/20 11/22/20 11/22/20 Range/Units 08:51 08:51 09:00 WBC 11.4 H (4.5-11.0) K/uL RBC 5.10 (3.30-5.50) M/uL Hgb 13.6 D (12.0-15.0) g/dL Hct 44.1 (36.0-48.0) % MCV 87 (80-98) fL MCH 27 (27-31) pg MCHC 31 L (32-36) % Plt Count 435 H (150-400) K/uL Sodium 138 L (140-148) mmol/L Potassium 3.9 (3.6-5.2) mmol/L Chloride 96 L (100-108) mmol/L Carbon Dioxide 23 (21-32) mmol/L Anion Gap 22.9 H (5.0-14.0) mmol/L BUN 19 H D (7-18) mg/dL Creatinine 1.2 H D (0.6-1.0) mg/dL Est Cr Clr Drug Dosing TNP Estimated GFR (MDRD) 45 L (>60) Glucose 156 H (74-106) mg/dL Lactic Acid (0.4-2.0) mmol/L Calcium 9.6 (8.5-10.1) mg/dL Phosphorus 4.0 (2.5-4.9) mg/dL Magnesium 1.7 L (1.8-2.4) mg/dL Total Bilirubin 0.3 (0.2-1.0) mg/dL AST 17 (15-37) U/L ALT 42 D (12-78) U/L Alkaline Phosphatase 153 H (46-116) U/L Total Protein 8.0 (6.4-8.2) g/dL Albumin 3.4 (3.4-5.0) g/dL Globulin 4.6 H (2.3-3.5) g/dL Albumin/Globulin Ratio 0.7 L (1.2-2.2) TSH, Ultra Sensitive 0.019 L (0.358-3.740) uIU/mL Urine Color (YELLOW) Urine Appearance (CLEAR) Urine pH (5.0-8.0) Ur Specific [place] (1.008-1.030) Urine Protein (NEGATIVE) mg/dL Urine Glucose (UA) (NEGATIVE) mg/dL Urine Ketones (NEGATIVE) mg/dL Urine Occult Blood (NEGATIVE) Urine Nitrite (NEGATIVE) Urine Bilirubin (NEGATIVE) Urine Urobilinogen (0.2-1.0) EU/dL Ur Leukocyte Esterase (NEGATIVE) Urine RBC (0-5) Urine WBC (0-5) Ur Epithelial Cells Amorphous Sediment Urine Bacteria Urine Mucus Urine Other Blood Type O POSITIVE Gel Antibody Screen Negative Crossmatch See Detail 11/22/20 11/22/20 Range/Units 09:00 09:49 WBC (4.5-11.0) K/uL RBC (3.30-5.50) M/uL Hgb (12.0-15.0) g/dL Hct (36.0-48.0) % MCV (80-98) fL MCH (27-31) pg MCHC (32-36) % Plt Count (150-400) K/uL Sodium (140-148) mmol/L Potassium (3.6-5.2) mmol/L Chloride (100-108) mmol/L Carbon Dioxide (21-32) mmol/L Anion Gap (5.0-14.0) mmol/L BUN (7-18) mg/dL Creatinine (0.6-1.0) mg/dL Est Cr Clr Drug Dosing Estimated GFR (MDRD) (>60) Glucose (74-106) mg/dL Lactic Acid 4.7 H (0.4-2.0) mmol/L Calcium (8.5-10.1) mg/dL Phosphorus (2.5-4.9) mg/dL Magnesium (1.8-2.4) mg/dL Total Bilirubin (0.2-1.0) mg/dL AST (15-37) U/L ALT (12-78) U/L Alkaline Phosphatase (46-116) U/L Total Protein (6.4-8.2) g/dL Albumin (3.4-5.0) g/dL Globulin (2.3-3.5) g/dL Albumin/Globulin Ratio (1.2-2.2) TSH, Ultra Sensitive (0.358-3.740) uIU/mL Urine Color Yellow (YELLOW) Urine Appearance Clear (CLEAR) Urine pH 6.5 (5.0-8.0) Ur Specific [place] >= 1.030 (1.008-1.030) Urine Protein 30 H (NEGATIVE) mg/dL Urine Glucose (UA) Negative (NEGATIVE) mg/dL Urine Ketones 80 H (NEGATIVE) mg/dL Urine Occult Blood Trace-intact H (NEGATIVE) Urine Nitrite Negative (NEGATIVE) Urine Bilirubin Large H (NEGATIVE) Urine Urobilinogen 1.0 (0.2-1.0) EU/dL Ur Leukocyte Esterase Negative (NEGATIVE) Urine RBC 0-5 (0-5) Urine WBC 0-5 (0-5) Ur Epithelial Cells Not seen Amorphous Sediment Occasional Urine Bacteria Few Urine Mucus Many Urine Other See note Blood Type Gel Antibody Screen Crossmatch Result Diagrams: 11/22/20 08:51 11/22/20 08:51 Misael Results Last 24 hrs: Microbiology 11/22/20 09:36 Gram Stain - Final Raul Romano Drainage 11/22/20 09:36 Gram Stain - Final Raul Romano Drainage Imaging Impressions Last 24 hrs: CT scan of the abdomen and pelvis-these images were personally reviewed-there is evidence for a very small left lower lung pneumonia. Status post gastric bypass changes are noted. 2 WALT drains are still in place in the upper abdomen. No obvious fluid collection. No evidence for bowel obstruction. Sepsis Event Note - Evaluation Current Stage of Sepsis: Sepsis Possible Source of Sepsis: GI Tract/Intra-abdominal - Focused Exam Sepsis Event Note Statement: Focused Sepsis Exam Completed Vital Signs: Vital Signs Temp Resp BP Pulse Ox 11/22/20 08:51 38.9 C H 35 H 156/79 H 93 L Respiratory Effort Without Exertion: Dyspneic Heart Sounds: Other (see below) (tachycardic) Capillary Refill, Detail: Less than/Equal to (</=) 2 Seconds Pulse Description: 2+ Normal Peripheral Pulse Location: Dorsalis Pedis Skin Exam (Focused Sepsis): Normal Turgor *Q Meaningful Use (ADM) - VTE Risk Assess *Q Each Risk Factor Represents 1 Point: Sepsis Total Score 1 Point Risk Factors: 1 Each Risk Factor Represents 2 Points: Age 60 - 74 Years, Malignancy (present or previous) Total Score 2 Point Risk Factors: 4 Each Risk Factor Represents 3 Points: None Total Score 3 Point Risk Factors: 0 Each Risk Factor Represents 5 Points: None Total Score 5 Point Risk Factors: 0 Venous Thromboembolism Risk Factor Score *Q: 5 Consult PN Assessment/Plan Procedures: Procedures ASSAY OF AMYLASE (09/25/20) ASSAY OF FERRITIN (09/25/20) ASSAY OF LIPASE (09/25/20) ASSAY OF MAGNESIUM (10/17/20) ASSAY OF NATRIURETIC PEPTIDE (10/17/20) ASSAY OF PHOSPHORUS (10/17/20) ASSAY THYROID STIM HORMONE (09/25/20) BLOOD CULTURE FOR BACTERIA (10/17/20) BLOOD TRANSFUSION SERVICE (09/25/20) BLOOD TYPING SEROLOGIC ABO (09/25/20) BLOOD TYPING SEROLOGIC RH(D) (09/25/20) COMPATIBILITY TEST ANTIGLOB (09/25/20) COMPATIBILITY TEST SPIN (09/25/20) COMPLETE CBC AUTOMATED (10/17/20) COMPLETE CBC W/AUTO DIFF WBC (09/25/20) COMPREHEN METABOLIC PANEL (10/17/20) CT ABD & PELV W/CONTRAST (10/17/20) CULTR BACTERIA EXCEPT BLOOD (09/25/20) CULTURE AEROBIC IDENTIFY (10/17/20) CULTURE OTHR SPECIMN AEROBIC (10/17/20) CULTURE SCREEN ONLY (04/28/14) EGD BIOPSY SINGLE/MULTIPLE (04/28/14) MEASURE BLOOD OXYGEN LEVEL (10/17/20) METABOLIC PANEL TOTAL CA (09/25/20) MICROBE SUSCEPTIBLE MISAEL (10/17/20) PT EVAL MOD COMPLEX 30 MIN (10/17/20) RBC ANTIBODY SCREEN (09/25/20) ROUTINE VENIPUNCTURE (10/17/20) SELF CARE MNGMENT TRAINING (10/17/20) SMEAR GRAM STAIN (10/17/20) THERAPEUTIC ACTIVITIES (10/17/20) THERAPEUTIC EXERCISES (10/17/20) X-RAY EXAM CHEST 1 VIEW (09/25/20) X-RAY XM UPR GI TRC 1CNTRST (09/25/20) (1) Sepsis SNOMED Code(s): 41238136 Code(s): A41.9 - SEPSIS, UNSPECIFIED ORGANISM Current Visit: Yes Qualifiers: Sepsis acute organ dysfunction status: without acute organ dysfunction (2) Left lower lobe pneumonia SNOMED Code(s): 110163883 Code(s): J18.9 - PNEUMONIA, UNSPECIFIED ORGANISM Current Visit: Yes Qualifiers: Pneumonia type: due to unspecified organism Qualified Code(s): J18.9 - Pneumonia, unspecified organism Problem List Initiated/Reviewed/Updated: Yes My Orders Last 24 Hours: My Active Orders 11/22/20 09:58 CRP [C-REACTIVE PROTEIN] [CHEM] Routine T4 FREE [CHEM] Routine 11/22/20 10:00 Lactated Ringers [Ringers, Lactated] 1,000 ml IV ASDIRECTED 11/22/20 14:00 LACTIC ACID [CHEM] Timed Plan: ASSESSMENT AND RECOMMENDATIONS - Sepsis-I still suspect intra-abdominal source though there were no obvious findings on the CT scan of the abdomen and pelvis. She has significant abdominal pain as well as significant warmth across her abdomen. Gram stain from one of the WALT drains had significant quantities of bacteria in it and this certainly could be a consideration for a source. She does have a left lower lobe pneumonia but this is not impressive with minimal symptoms and no hypoxia so I doubt this is the source of her sepsis. -Agree with broad-spectrum antibiotics -30 mL/kg bolus per sepsis protocol -Repeat lactic acid level at 2 PM, repeat later if still elevated -Follow-up cultures -Continue IV fluids after bolus -Symptomatic management of pain and nausea -Surgical management per Dr. Betancourt Left lower lobe pneumonia-minimally symptomatic and not very impressive on the CT scan. She is not hypoxic. As noted above I do not believe this is the source of her infection. She is on broad-spectrum antibiotic therapy. -Management as above -Supplement oxygen if indicated Amanuel Mckeon MD Requesting Provider: Dr Betancourt Date Consult Requested: 11/22/20 Reason for Consult: sepsis Patient History Reviewed: Yes Admission H&P Reviewed: No Notified Requestor: No Time Spent (in minutes): 60
[2020-11-22] MEDS ORDERED: Iopamidol 612 MG/ML 100 ML Bottle IV PRN (10:32)
[2020-11-22] MEDS ORDERED: Sodium Chloride 0.9% 10 ML Syringe FLUSH PRN (10:32)
[2020-11-22] MEDS ORDERED: Sodium Chloride 0.9% 75 ML IV ONE (10:32)
[2020-11-22] MEDS: Meropenem 500 MG in Sodium Chloride 0.9% 50 ML IV SCH ×3 (11:07→22:32)
[2020-11-22] MEDS: Pantoprazole 40 MG Vial IV SCH (11:13)
[2020-11-22] MEDS: Dextrose 5%-Lactated Ringers 1,000 ML IV SCH ×3 (11:17→23:48)
--- NOTE | 2020-11-22 12:23 | CT ---
Abdomen Pelvis w Cont CLINICAL HISTORY: Abdominal pain, sepsis COMPARISON: 10/17/2020. TECHNIQUE: Transverse scans were obtained from the base of the lungs to the pubic symphysis following oral contrast and IV infusion of contrast.Auto dosage reduction and iterative reconstructiontechniques employed. FINDINGS: There is a left lower lobe pneumonia. There is a loop of bowel in the midabdomen crossing from right to left appears thickened. This is changed since prior study. This may be transverse colon. This does pass into the region of the gastric bypass and some detail is lost. This could feasibly be a thickened segment of small bowel. Right colon mucosa appears to be thickened also. The liver shows some mild intrahepatic biliary prominence similar to prior study. The gallbladder has been removed. There are [address] in the upper abdomen extending towards the gastrectomy site. The spleen has normal size and shape. Some minimal perisplenic fluid. The pancreas shows no mass or inflammatory change. The adrenal glands appear normal bilaterally . The kidneys show no mass, stones or hydronephrosis. There is a small cyst in the right kidney. The ureters have normal course and caliber. There is a Hunter catheter in the bladder. The aorta has a normal caliber. There is no suspicious retroperitoneal adenopathy. IMPRESSION: Interval development of left lower lobe pneumonia There is a segment of thickened bowel traversing the mid abdomen from left to right. This may be thickened transverse colon. Thickened loop of small bowel is felt less likely in that there is also some thickening in the ascending colon. This is more suggestive of a colitis Minimal fluid in the perisplenic region. Surgical drains remain in place
[2020-11-22] MEDS ORDERED: Acetaminophen 1,000 MG in Premix Bag 1 BAG IV PRN (17:30)
[2020-11-22] MEDS: ALPRAZolam 0.5 MG Tab PO PRN (21:04)
[2020-11-22] MEDS: Venlafaxine 75 MG Tab PO SCH (21:04)
[2020-11-22] MEDS: Ondansetron 4 MG/2 ML SDV IVPUSH PRN (23:12)
[2020-11-23] MEDS: Meropenem 500 MG in Sodium Chloride 0.9% 50 ML IV SCH ×4 (03:52→21:23)
[2020-11-23] MEDS: Dextrose 5%-Lactated Ringers 1,000 ML IV SCH ×2 (05:48→14:53)
[2020-11-23] MEDS ORDERED: Levothyroxine 100 MCG Tab PO SCH ×2 (09:00)
[2020-11-23] MEDS ORDERED: Tolterodine 2 MG Tab PO SCH (09:00)
[2020-11-23] MEDS: Venlafaxine 75 MG Tab PO SCH ×3 (09:11→21:23)
[2020-11-23] MEDS: Lubiprostone 24 MCG Cap PO SCH ×2 (09:11→16:59)
[2020-11-23] MEDS: Linezolid 600 MG in Premix Bag 1 BAG IV SCH ×2 (09:12→21:23)
[2020-11-23] MEDS: Levothyroxine 100 MCG Tab PO SCH (09:12)
[2020-11-23] MEDS: Magnesium Oxide 400 MG Tab PO SCH (09:12)
[2020-11-23] MEDS: Magnesium Sulfate/Water 2 GM/50 ML BAG IV SCH ×3 (09:37→21:23)
[2020-11-23] MEDS: Potassium Phos in 0.9 % NaCl 15 MMOL in Premix Bag 1 BAG IV SCH ×4 (09:37→12:38)
[2020-11-23] MEDS: Tolterodine 2 MG Tab PO SCH ×2 (10:41→21:23)
[2020-11-23] MEDS: Pantoprazole 40 MG Vial IV SCH (10:42)
[2020-11-23] MEDS: CYANOCOBALAMIN 1000 MCG SL SCH (11:33)
[2020-11-23] MEDS: [UNRECOGNIZED DRUG - OTHER] PO SCH (11:33)
--- NOTE | 2020-11-23 15:03 | PCM.PN ---
- General Info Date of Service: 11/23/20 Admission Dx/Problem (Free Text): Admission Diagnosis/Problem Admission Diagnosis/Problem Sepsis Subjective Update: Patient is feeling better this morning. She denies significant abdominal discomfort today and believes she has a surgery planned for tomorrow. Functional Status: Reports: Pain Controlled - Review of Systems General: Reports: No Symptoms HEENT: Reports: No Symptoms Pulmonary: Reports: No Symptoms Cardiovascular: Reports: No Symptoms Musculoskeletal: Reports: No Symptoms Skin: Reports: No Symptoms Neurological: Reports: No Symptoms Psychiatric: Reports: No Symptoms - Patient Data Vitals - Most Recent: Last Vital Signs Temp 97.1 F 11/23/20 13:00 Pulse 99 11/22/20 18:00 Resp 20 11/23/20 14:00 BP 140/82 11/23/20 14:00 Pulse Ox 94 L 11/23/20 14:00 Weight - Most Recent: 141 lb 15.643 oz I&O - Last 24 Hours: Intake & Output 11/23/20 11/23/20 11/23/20 06:59 14:59 22:59 Intake Total 2475 Output Total 1275 Balance 1200 Lab Results Last 24 Hours: Laboratory Results - last 24 hr 11/23/20 11/23/20 Range/Units 06:47 06:47 WBC 7.2 (4.5-11.0) K/uL RBC 3.76 (3.30-5.50) M/uL Hgb 10.2 L D (12.0-15.0) g/dL Hct 32.7 L (36.0-48.0) % MCV 87 (80-98) fL MCH 27 (27-31) pg MCHC 31 L (32-36) % Plt Count 258 (150-400) K/uL Sodium 144 (140-148) mmol/L Potassium 3.6 (3.6-5.2) mmol/L Chloride 106 (100-108) mmol/L Carbon Dioxide 31 (21-32) mmol/L Anion Gap 6.6 (5.0-14.0) mmol/L BUN 7 D (7-18) mg/dL Creatinine 0.7 (0.6-1.0) mg/dL Est Cr Clr Drug Dosing 65.40 mL/min Estimated GFR (MDRD) > 60 (>60) Glucose 108 H (74-106) mg/dL Calcium 8.0 L D (8.5-10.1) mg/dL Phosphorus 2.8 (2.5-4.9) mg/dL Magnesium 1.5 L (1.8-2.4) mg/dL Total Bilirubin 0.2 (0.2-1.0) mg/dL AST 12 L (15-37) U/L ALT 24 (12-78) U/L Alkaline Phosphatase 94 (46-116) U/L Total Protein 5.2 L (6.4-8.2) g/dL Albumin 2.0 L (3.4-5.0) g/dL Globulin 3.2 (2.3-3.5) g/dL Albumin/Globulin Ratio 0.6 L (1.2-2.2) Misael Results Last 24 Hours: Microbiology 11/22/20 09:00 Aerobic Blood Culture - Preliminary Blood NO GROWTH AFTER 1 DAY Anaerobic Blood Culture - Preliminary NO GROWTH AFTER 1 DAY 11/22/20 08:51 Aerobic Blood Culture - Preliminary Blood NO GROWTH AFTER 1 DAY Anaerobic Blood Culture - Preliminary NO GROWTH AFTER 1 DAY 11/22/20 09:36 Gram Stain - Final Raul Romano Drainage Wound Culture - Preliminary 11/22/20 09:36 Gram Stain - Final Raul Romano Drainage Wound Culture - Preliminary 11/22/20 09:49 Urine Culture - Preliminary Urine, Hunter Cath (Indwelling) NO GROWTH AFTER 1 DAY Med Orders - Current: Current Medications Alprazolam (Alprazolam 0.5 Mg Tab) 0.5 mg PO Q6H PRN PRN Reason: Anxiety Last Admin: 11/22/20 21:04 Dose: 0.5 mg Documented by: Hydromorphone HCl (Hydromorphone/Normal Saline 15 Mg/30 Ml Pool Lifeguard) 0 mg IV ASDIRECTED PRN; 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 Acetaminophen 1,000 mg/ Premix 100 mls @ 400 mls/hr IV Q8H PRN PRN Reason: FEVER/CHILLS Stop: 11/23/20 17:31 Last Admin: 11/22/20 19:03 Dose: 400 mls/hr Documented by: Linezolid 600 mg/ Premix 300 mls @ 300 mls/hr IV Q12H [facility] Last Admin: 11/23/20 09:12 Dose: 300 mls/hr Documented by: Meropenem 500 mg/ Sodium (Chloride) 50 mls @ 100 mls/hr IV Q6H [facility] Last Admin: 11/23/20 11:07 Dose: 100 mls/hr Documented by: Aztreonam 1 gm/ Sodium (Chloride) 50 mls @ 100 mls/hr IV Q8H [facility] Last Admin: 11/23/20 11:35 Dose: 100 mls/hr Documented by: Magnesium Sulfate (Magnesium Sulfate In Water 2 Gm/50 Ml) 2 gm in 50 mls @ 25 mls/hr IV Q6H [facility] Stop: 11/26/20 05:59 Last Admin: 11/23/20 09:37 Dose: 25 mls/hr Documented by: Potassium Phosphate 15 mmol/ (Premix) 250 mls @ 83.333 mls/hr IV Q3H [facility] Stop: 11/23/20 15:59 Last Admin: 11/23/20 12:38 Dose: 83.333 mls/hr Documented by: Dextrose/Lactated Ringer's (Dextrose 5%-Lactated Ringers) 1,000 mls @ 100 mls/hr IV ASDIRECTED [facility] Last Admin: 11/23/20 14:53 Dose: 100 mls/hr Documented by: Levothyroxine Sodium (Levothyroxine 100 Mcg Tab) 100 mcg PO DAILY@0730 [facility] Last Admin: 11/23/20 09:12 Dose: 100 mcg Documented by: Lubiprostone (Lubiprostone 24 Mcg Cap) 24 mcg PO BIDMEALS [facility] Last Admin: 11/23/20 09:11 Dose: 24 mcg Documented by: Magnesium Oxide (Magnesium Oxide 400 Mg Tab) 400 mg PO DAILY [facility] Last Admin: 11/23/20 09:12 Dose: 400 mg Documented by: Naloxone HCl (Naloxone 0.4 Mg/Ml Sdv) 0.1 mg IV ASDIRECTED PRN PRN Reason: decreased respiratory rate Cyanocobalamin ( Vitamin B-12) 1,000 McgPom 0 mcg SL DAILY [facility] Last Admin: 11/23/20 11:33 Dose: 1,000 mcg Documented by: Multivit-Min ( Centrum Fresh & Fruity)Pom 0 dose PO DAILY [facility] Last Admin: 11/23/20 11:33 Dose: Not Given Documented by: Ondansetron HCl (Ondansetron 4 Mg/2 Ml Sdv) 4 mg IVPUSH Q4H PRN PRN Reason: Nausea/Vomiting Last Admin: 11/22/20 23:12 Dose: 4 mg Documented by: Pantoprazole Sodium (Pantoprazole 40 Mg Vial) 40 mg IV Q24H [facility] Last Admin: 11/23/20 10:42 Dose: 40 mg Documented by: Tolterodine Tartrate (Tolterodine 2 Mg Tab) 2 mg PO BID [facility] Last Admin: 11/23/20 10:41 Dose: 2 mg Documented by: Venlafaxine HCl (Venlafaxine 75 Mg Tab) 150 mg PO TID [facility] Last Admin: 11/23/20 14:55 Dose: 150 mg Documented by: Discontinued Medications Lactated Ringer's (Ringers, Lactated) 1,000 mls @ 999 mls/hr IV ONETIME ONE Stop: 11/22/20 10:15 Last Admin: 11/22/20 08:57 Dose: 999 mls/hr Documented by: Dextrose/Lactated Ringer's (Dextrose 5%-Lactated Ringers) 1,000 mls @ 200 mls/hr IV ASDIRECTED [facility] Last Admin: 11/23/20 05:48 Dose: 200 mls/hr Documented by: Acetaminophen 1,000 mg/ Premix 100 mls @ 400 mls/hr IV NOW ONE Stop: 11/22/20 09:44 Last Admin: 11/22/20 09:47 Dose: 400 mls/hr Documented by: Lactated Ringer's (Ringers, Lactated) 1,000 mls @ 999 mls/hr IV ASDIRECTED [facility] Stop: 11/22/20 11:01 Last Admin: 11/22/20 10:16 Dose: 999 mls/hr Documented by: Sodium Chloride (Normal Saline) 75 mls @ 3 mls/sec IV ONETIME ONE Stop: 11/22/20 10:33 Last Admin: 11/22/20 10:52 Dose: 3 mls/sec Documented by: Iopamidol (Iopamidol 612 Mg/Ml 100 Ml Bottle) 100 ml IV . DIRECTED PRN PRN Reason: RADIOLOGY EXAM Stop: 11/22/20 10:33 Last Admin: 11/22/20 10:52 Dose: 92 ml Documented by: Levothyroxine Sodium (Levothyroxine 100 Mcg Tab) 100 mcg PO DAILY [facility] Levothyroxine Sodium (Levothyroxine 100 Mcg Tab) 100 mcg PO DAILY@0000 [facility] Sodium Chloride (Sodium Chloride 0.9% 10 Ml Syringe) 10 ml FLUSH ONETIME PRN PRN Reason: PER RADIOLOGY PROTOCOL Stop: 11/22/20 10:33 Last Admin: 11/22/20 10:52 Dose: 10 ml Documented by: - Exam General: Alert, Oriented Neck: Supple Lungs: Clear to Auscultation Cardiovascular: Regular Rate, Regular Rhythm GI/Abdominal Exam: Soft. No: Guarding, Rebound Extremities: Normal Inspection Skin: Warm, Dry Neurological: No New Focal Deficit Psy/Mental Status: Alert, Normal Affect, Normal Mood - Patient Data Lab Results Last 24 hrs: Laboratory Results - last 24 hr 11/23/20 11/23/20 Range/Units 06:47 06:47 WBC 7.2 (4.5-11.0) K/uL RBC 3.76 (3.30-5.50) M/uL Hgb 10.2 L D (12.0-15.0) g/dL Hct 32.7 L (36.0-48.0) % MCV 87 (80-98) fL MCH 27 (27-31) pg MCHC 31 L (32-36) % Plt Count 258 (150-400) K/uL Sodium 144 (140-148) mmol/L Potassium 3.6 (3.6-5.2) mmol/L Chloride 106 (100-108) mmol/L Carbon Dioxide 31 (21-32) mmol/L Anion Gap 6.6 (5.0-14.0) mmol/L BUN 7 D (7-18) mg/dL Creatinine 0.7 (0.6-1.0) mg/dL Est Cr Clr Drug Dosing 65.40 mL/min Estimated GFR (MDRD) > 60 (>60) Glucose 108 H (74-106) mg/dL Calcium 8.0 L D (8.5-10.1) mg/dL Phosphorus 2.8 (2.5-4.9) mg/dL Magnesium 1.5 L (1.8-2.4) mg/dL Total Bilirubin 0.2 (0.2-1.0) mg/dL AST 12 L (15-37) U/L ALT 24 (12-78) U/L Alkaline Phosphatase 94 (46-116) U/L Total Protein 5.2 L (6.4-8.2) g/dL Albumin 2.0 L (3.4-5.0) g/dL Globulin 3.2 (2.3-3.5) g/dL Albumin/Globulin Ratio 0.6 L (1.2-2.2) Result Diagrams: 11/23/20 06:47 11/23/20 06:47 Misael Results Last 24 hrs: Microbiology 11/22/20 09:00 Aerobic Blood Culture - Preliminary Blood NO GROWTH AFTER 1 DAY Anaerobic Blood Culture - Preliminary NO GROWTH AFTER 1 DAY 11/22/20 08:51 Aerobic Blood Culture - Preliminary Blood NO GROWTH AFTER 1 DAY Anaerobic Blood Culture - Preliminary NO GROWTH AFTER 1 DAY 11/22/20 09:36 Gram Stain - Final Raul Romano Drainage Wound Culture - Preliminary 11/22/20 09:36 Gram Stain - Final Raul Romano Drainage Wound Culture - Preliminary 11/22/20 09:49 Urine Culture - Preliminary Urine, Hunter Cath (Indwelling) NO GROWTH AFTER 1 DAY Sepsis Event Note - Evaluation Sepsis Screening Result: Sepsis Risk - Focused Exam Vital Signs: Vital Signs Temp Resp BP Pulse Ox 11/23/20 14:00 20 140/82 94 L 11/23/20 13:00 97.1 F 24 H 130/73 93 L 11/23/20 12:00 21 H 115/65 91 L 11/23/20 11:00 23 H 131/75 94 L 11/23/20 10:00 97.1 F 19 121/80 96 11/23/20 09:00 15 119/71 92 L 11/23/20 08:00 14 115/60 92 L 11/23/20 07:00 97.3 F 19 122/65 94 L 11/23/20 06:00 17 123/69 93 L 11/23/20 05:00 18 107/60 92 L 11/23/20 04:00 19 118/66 93 L - Problem List Review Problem List Initiated/Reviewed/Updated: Yes - Plan Plan:: ASSESSMENT AND PLAN - SEPSIS Cultures from abdominal drains are yet pending. -Continue broad-spectrum antibiotics -Follow-up cultures -Symptomatic management of pain and nausea -Surgical management per Dr. Betancourt LEFT LOWER LOBE PNEUMONIA No significant symptoms but being adequately treated by broad-spectrum antibiotics.
[2020-11-23] MEDS ORDERED: Lidocaine 2% Jelly 30 ML Tube TOP PRN (17:48)
[2020-11-24] MEDS: Dextrose 5%-Lactated Ringers 1,000 ML IV SCH (03:32)
[2020-11-24] MEDS: Magnesium Sulfate/Water 2 GM/50 ML BAG IV SCH ×4 (03:32→22:25)
[2020-11-24] MEDS: Meropenem 500 MG in Sodium Chloride 0.9% 50 ML IV SCH ×4 (03:32→22:26)
[2020-11-24] MEDS: ALPRAZolam 0.5 MG Tab PO PRN (05:20)
[2020-11-24] MEDS ORDERED: fentaNYL 100 MCG/2 ML SDV ONE (07:04)
[2020-11-24] MEDS ORDERED: Midazolam 1 MG/ML 2 ML SDV ONE (07:04)
[2020-11-24] MEDS ORDERED: Propofol 200 MG/20 ML SDV ONE (07:04)
[2020-11-24] MEDS ORDERED: Lidocaine 1% with EPINEPHrine 1:100,000 50 ML MDV ONE (07:21)
--- NOTE | 2020-11-24 08:12 | PCM.PN ---
- General Info Date of Service: 11/24/20 Admission Dx/Problem (Free Text): Admission Diagnosis/Problem Admission Diagnosis/Problem Sepsis Subjective Update: No significant events reported overnight. The patient denies significant abdominal discomfort this morning unless palpated. She is being taken to surgery after I rounded on her. Functional Status: Reports: Pain Controlled - Review of Systems General: Denies: Fever, Night Sweats HEENT: Reports: No Symptoms Pulmonary: Reports: No Symptoms Cardiovascular: Reports: No Symptoms Gastrointestinal: Denies: Nausea, Vomiting Musculoskeletal: Reports: No Symptoms Skin: Reports: No Symptoms Neurological: Reports: No Symptoms Psychiatric: Reports: No Symptoms - Patient Data Vitals - Most Recent: Last Vital Signs Temp 95.0 F L 11/24/20 07:55 Pulse 96 11/24/20 08:05 Resp 20 11/24/20 08:05 BP 106/54 L 11/24/20 08:05 Pulse Ox 94 L 11/24/20 08:05 Weight - Most Recent: 141 lb 15.643 oz I&O - Last 24 Hours: Intake & Output 11/23/20 11/24/20 11/24/20 22:59 06:59 14:59 Intake Total 2757 2160 Output Total 2030 1525 Balance 727 635 Lab Results Last 24 Hours: Laboratory Results - last 24 hr 11/24/20 11/24/20 Range/Units 04:52 04:52 WBC 5.4 (4.5-11.0) K/uL RBC 4.02 (3.30-5.50) M/uL Hgb 10.9 L (12.0-15.0) g/dL Hct 34.7 L (36.0-48.0) % MCV 86 (80-98) fL MCH 27 (27-31) pg MCHC 31 L (32-36) % Plt Count 275 (150-400) K/uL Sodium 144 (140-148) mmol/L Potassium 3.9 (3.6-5.2) mmol/L Chloride 105 (100-108) mmol/L Carbon Dioxide 32 (21-32) mmol/L Anion Gap 7.1 (5.0-14.0) mmol/L BUN 4 L (7-18) mg/dL Creatinine 0.7 (0.6-1.0) mg/dL Est Cr Clr Drug Dosing 65.37 mL/min Estimated GFR (MDRD) > 60 (>60) Glucose 95 (74-106) mg/dL Calcium 8.0 L (8.5-10.1) mg/dL Phosphorus 3.4 (2.5-4.9) mg/dL Total Bilirubin 0.2 (0.2-1.0) mg/dL AST 12 L (15-37) U/L ALT 22 (12-78) U/L Alkaline Phosphatase 100 (46-116) U/L Total Protein 5.4 L (6.4-8.2) g/dL Albumin 2.1 L (3.4-5.0) g/dL Globulin 3.3 (2.3-3.5) g/dL Albumin/Globulin Ratio 0.6 L (1.2-2.2) Misael Results Last 24 Hours: Microbiology 11/22/20 09:36 Gram Stain - Final Raul Romano Drainage Wound Culture - Preliminary 11/22/20 09:36 Gram Stain - Final Raul Romano Drainage Wound Culture - Preliminary 11/22/20 09:49 Urine Culture - Final Urine, Hunter Cath (Indwelling) NO GROWTH AFTER 2 DAYS 11/22/20 09:00 Aerobic Blood Culture - Preliminary Blood NO GROWTH AFTER 1 DAY Anaerobic Blood Culture - Preliminary NO GROWTH AFTER 1 DAY 11/22/20 08:51 Aerobic Blood Culture - Preliminary Blood NO GROWTH AFTER 1 DAY Anaerobic Blood Culture - Preliminary NO GROWTH AFTER 1 DAY Med Orders - Current: Current Medications Alprazolam (Alprazolam 0.5 Mg Tab) 0.5 mg PO Q6H PRN PRN Reason: Anxiety Last Admin: 11/24/20 05:20 Dose: 0.5 mg Documented by: Hydromorphone HCl (Hydromorphone/Normal Saline 15 Mg/30 Ml Hole Digger) 0 mg IV ASDIRECTED PRN; Protocol 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 Linezolid 600 mg/ Premix 300 mls @ 300 mls/hr IV Q12H [facility] Last Admin: 11/23/20 21:23 Dose: 300 mls/hr Documented by: Meropenem 500 mg/ Sodium (Chloride) 50 mls @ 100 mls/hr IV Q6H [facility] Last Admin: 11/24/20 03:32 Dose: 100 mls/hr Documented by: Aztreonam 1 gm/ Sodium (Chloride) 50 mls @ 100 mls/hr IV Q8H [facility] Last Admin: 11/24/20 03:32 Dose: 100 mls/hr Documented by: Magnesium Sulfate (Magnesium Sulfate In Water 2 Gm/50 Ml) 2 gm in 50 mls @ 25 mls/hr IV Q6H [facility] Stop: 11/26/20 05:59 Last Admin: 11/24/20 03:32 Dose: 25 mls/hr Documented by: Dextrose/Lactated Ringer's (Dextrose 5%-Lactated Ringers) 1,000 mls @ 100 mls/hr IV ASDIRECTED [facility] Last Admin: 11/24/20 03:32 Dose: 100 mls/hr Documented by: Levothyroxine Sodium (Levothyroxine 100 Mcg Tab) 100 mcg PO DAILY@0730 [facility] Last Admin: 11/23/20 09:12 Dose: 100 mcg Documented by: Lidocaine HCl (Lidocaine 2% Jelly 30 Ml Tube) 0 ml TOP QID PRN PRN Reason: PAIN Lubiprostone (Lubiprostone 24 Mcg Cap) 24 mcg PO BIDMEALS [facility] Last Admin: 11/23/20 16:59 Dose: 24 mcg Documented by: Magnesium Oxide (Magnesium Oxide 400 Mg Tab) 400 mg PO DAILY [facility] Last Admin: 11/23/20 09:12 Dose: 400 mg Documented by: Naloxone HCl (Naloxone 0.4 Mg/Ml Sdv) 0.1 mg IV ASDIRECTED PRN PRN Reason: decreased respiratory rate Cyanocobalamin ( Vitamin B-12) 1,000 McgPom 0 mcg SL DAILY [facility] Last Admin: 11/23/20 11:33 Dose: 1,000 mcg Documented by: Multivit-Min ( Centrum Fresh & Fruity)Pom 0 dose PO DAILY [facility] Last Admin: 11/23/20 11:33 Dose: Not Given Documented by: Ondansetron HCl (Ondansetron 4 Mg/2 Ml Sdv) 4 mg IVPUSH Q4H PRN PRN Reason: Nausea/Vomiting Last Admin: 11/22/20 23:12 Dose: 4 mg Documented by: Pantoprazole Sodium (Pantoprazole 40 Mg Vial) 40 mg IV Q24H [facility] Last Admin: 11/23/20 10:42 Dose: 40 mg Documented by: Tolterodine Tartrate (Tolterodine 2 Mg Tab) 2 mg PO BID [facility] Last Admin: 11/23/20 21:23 Dose: 2 mg Documented by: Venlafaxine HCl (Venlafaxine 75 Mg Tab) 150 mg PO TID [facility] Last Admin: 11/23/20 21:23 Dose: 150 mg Documented by: Discontinued Medications Fentanyl (Fentanyl 100 Mcg/2 Ml Sdv) Confirm Administered Dose 100 mcg .ROUTE .STK-MED ONE Stop: 11/24/20 07:05 Heparin Sodium (Porcine) (Heparin Sodium 100 Units/Ml 5 Ml Syringe) Confirm Administered Dose 1,000 units .ROUTE .STK-MED ONE Stop: 11/24/20 06:31 Lactated Ringer's (Ringers, Lactated) 1,000 mls @ 999 mls/hr IV ONETIME ONE Stop: 11/22/20 10:15 Last Admin: 11/22/20 08:57 Dose: 999 mls/hr Documented by: Dextrose/Lactated Ringer's (Dextrose 5%-Lactated Ringers) 1,000 mls @ 200 mls/h r IV ASDIRECTED [facility] Last Admin: 11/23/20 05:48 Dose: 200 mls/hr Documented by: Acetaminophen 1,000 mg/ Premix 100 mls @ 400 mls/hr IV NOW ONE Stop: 11/22/20 09:44 Last Admin: 11/22/20 09:47 Dose: 400 mls/hr Documented by: Acetaminophen 1,000 mg/ Premix 100 mls @ 400 mls/hr IV Q8H PRN PRN Reason: FEVER/CHILLS Stop: 11/23/20 17:31 Last Admin: 11/22/20 19:03 Dose: 400 mls/hr Documented by: Lactated Ringer's (Ringers, Lactated) 1,000 mls @ 999 mls/hr IV ASDIRECTED [facility] Stop: 11/22/20 11:01 Last Admin: 11/22/20 10:16 Dose: 999 mls/hr Documented by: Sodium Chloride (Normal Saline) 75 mls @ 3 mls/sec IV ONETIME ONE Stop: 11/22/20 10:33 Last Admin: 11/22/20 10:52 Dose: 3 mls/sec Documented by: Potassium Phosphate 15 mmol/ (Premix) 250 mls @ 83.333 mls/hr IV Q3H [facility] Stop: 11/23/20 15:59 Last Admin: 11/23/20 12:38 Dose: 83.333 mls/hr Documented by: Iopamidol (Iopamidol 612 Mg/Ml 100 Ml Bottle) 100 ml IV . DIRECTED PRN PRN Reason: RADIOLOGY EXAM Stop: 11/22/20 10:33 Last Admin: 11/22/20 10:52 Dose: 92 ml Documented by: Levothyroxine Sodium (Levothyroxine 100 Mcg Tab) 100 mcg PO DAILY [facility] Levothyroxine Sodium (Levothyroxine 100 Mcg Tab) 100 mcg PO DAILY@0000 [facility] Lidocaine/Epinephrine (Lidocaine 1% With Epinephrine 1:100,000 50 Ml Mdv) Confirm Administered Dose 50 ml .ROUTE .STK-MED ONE Stop: 11/24/20 07:22 Midazolam HCl (Midazolam 1 Mg/Ml 2 Ml Sdv) Confirm Administered Dose 2 mg .ROUTE .STK-MED ONE Stop: 11/24/20 07:05 Propofol (Propofol 200 Mg/20 Ml Sdv) Confirm Administered Dose 200 mg .ROUTE .STK-MED ONE Stop: 11/24/20 07:05 Sodium Chloride (Sodium Chloride 0.9% 10 Ml Syringe) 10 ml FLUSH ONETIME PRN PRN Reason: PER RADIOLOGY PROTOCOL Stop: 11/22/20 10:33 Last Admin: 11/22/20 10:52 Dose: 10 ml Documented by: - Exam General: Alert, Oriented HEENT: No: Scleral Icterus Neck: Supple Lungs: Clear to Auscultation Cardiovascular: Regular Rate, Regular Rhythm Extremities: Normal Inspection Skin: Warm, Dry Neurological: No New Focal Deficit Psy/Mental Status: Alert - Patient Data Lab Results Last 24 hrs: Laboratory Results - last 24 hr 11/24/20 11/24/20 Range/Units 04:52 04:52 WBC 5.4 (4.5-11.0) K/uL RBC 4.02 (3.30-5.50) M/uL Hgb 10.9 L (12.0-15.0) g/dL Hct 34.7 L (36.0-48.0) % MCV 86 (80-98) fL MCH 27 (27-31) pg MCHC 31 L (32-36) % Plt Count 275 (150-400) K/uL Sodium 144 (140-148) mmol/L Potassium 3.9 (3.6-5.2) mmol/L Chloride 105 (100-108) mmol/L Carbon Dioxide 32 (21-32) mmol/L Anion Gap 7.1 (5.0-14.0) mmol/L BUN 4 L (7-18) mg/dL Creatinine 0.7 (0.6-1.0) mg/dL Est Cr Clr Drug Dosing 65.37 mL/min Estimated GFR (MDRD) > 60 (>60) Glucose 95 (74-106) mg/dL Calcium 8.0 L (8.5-10.1) mg/dL Phosphorus 3.4 (2.5-4.9) mg/dL Total Bilirubin 0.2 (0.2-1.0) mg/dL AST 12 L (15-37) U/L ALT 22 (12-78) U/L Alkaline Phosphatase 100 (46-116) U/L Total Protein 5.4 L (6.4-8.2) g/dL Albumin 2.1 L (3.4-5.0) g/dL Globulin 3.3 (2.3-3.5) g/dL Albumin/Globulin Ratio 0.6 L (1.2-2.2) Result Diagrams: 11/24/20 04:52 11/24/20 04:52 Misael Results Last 24 hrs: Microbiology 11/22/20 09:36 Gram Stain - Final Raul Romano Drainage Wound Culture - Preliminary 11/22/20 09:36 Gram Stain - Final Raul Romano Drainage Wound Culture - Preliminary 11/22/20 09:49 Urine Culture - Final Urine, Hunter Cath (Indwelling) NO GROWTH AFTER 2 DAYS 11/22/20 09:00 Aerobic Blood Culture - Preliminary Blood NO GROWTH AFTER 1 DAY Anaerobic Blood Culture - Preliminary NO GROWTH AFTER 1 DAY 11/22/20 08:51 Aerobic Blood Culture - Preliminary Blood NO GROWTH AFTER 1 DAY Anaerobic Blood Culture - Preliminary NO GROWTH AFTER 1 DAY Sepsis Event Note - Evaluation Sepsis Screening Result: No Definite Risk - Focused Exam Vital Signs: Vital Signs Temp Pulse Resp BP Pulse Ox 11/24/20 08:05 96 20 106/54 L 94 L 11/24/20 08:00 101 H 20 110/50 L 93 L 11/24/20 07:55 95.0 F L 105 H 20 111/67 97 11/24/20 06:00 19 120/71 94 L 11/24/20 05:00 18 126/67 91 L 11/24/20 04:00 19 124/69 92 L 11/24/20 03:00 97.2 F 17 131/71 91 L 11/24/20 02:00 19 114/70 92 L 11/24/20 01:00 21 H 132/73 93 L 11/24/20 00:00 20 135/70 95 11/23/20 23:00 97.0 F 24 H 132/64 94 L 11/23/20 22:00 23 H 125/71 93 L 11/23/20 21:00 18 134/70 95 - Problem List Review Problem List Initiated/Reviewed/Updated: Yes - My Orders Last 24 Hours: My Active Orders 11/24/20 08:10 MAGNESIUM [CHEM] Routine - Plan Plan:: ASSESSMENT AND PLAN - SEPSIS Cultures from abdominal drains are yet pending. ID and sensitives have been set up. Patient set for surgery this morning. -Continue broad-spectrum antibiotics -Follow-up cultures -Symptomatic management of pain and nausea -Surgical management per Dr. Betancourt LEFT LOWER LOBE PNEUMONIA No significant symptoms but being adequately treated by broad-spectrum antibiotics.
--- NOTE | 2020-11-24 09:29 | CR ---
CHEST: Portable 11/24/2020 at 8:05 AM CLINICAL HISTORY:Central line placement COMPARISON:09/28/2020 FINDINGS: Patient is a left subclavian catheter. The tip is in the superior vena cava atrial junction region. There is some streaky density in both perihilar regions similar to prior study. There is no pneumothorax or pleural effusion. Impression: Left subclavian catheter in good position No acute cardiopulmonary process
[2020-11-24] MEDS ORDERED: Iopamidol 612 MG/ML 100 ML Bottle PRN (10:01)
[2020-11-24] MEDS: Linezolid 600 MG in Premix Bag 1 BAG IV SCH ×2 (10:06→20:40)
[2020-11-24] MEDS: Lubiprostone 24 MCG Cap PO SCH ×2 (10:07→16:53)
[2020-11-24] MEDS: Venlafaxine 75 MG Tab PO SCH ×3 (10:07→20:36)
[2020-11-24] MEDS: Levothyroxine 100 MCG Tab PO SCH (10:07)
[2020-11-24] MEDS: Tolterodine 2 MG Tab PO SCH ×2 (10:07→20:36)
[2020-11-24] MEDS: Pantoprazole 40 MG Vial IV SCH (10:08)
[2020-11-24] MEDS: Magnesium Oxide 400 MG Tab PO SCH (10:08)
--- NOTE | 2020-11-24 10:12 | CR ---
Fistula Sinus Tract, fistulogram CLINICAL HISTORY: Persistent postop drain output FINDINGS: Isovue 300 was instilled through the lower of 2 drains from the right abdomen. Some contrast filled the upper drain and some flowed retrograde to the abdominal wall puncture site. The second drain which is the upper drain shows contrast passing from near the midportion of the drainage field into the small bowel consistent with fistula. 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
[2020-11-24] MEDS: Metoclopramide 10 MG/2 ML SDV IV PRN (10:28)
[2020-11-24] MEDS: [UNRECOGNIZED DRUG - OTHER] PO SCH (10:49)
[2020-11-24] MEDS: CYANOCOBALAMIN 1000 MCG SL SCH (10:49)
[2020-11-24] MEDS: 1: AA 5%/Calcium/D15W/Lytes 1,000 ML with MVI, Adult with Vitamin K 10 ML, Zinc/Copper/M IV SCH ×6 (11:51→22:27)
[2020-11-25] MEDS: Meropenem 500 MG in Sodium Chloride 0.9% 50 ML IV SCH ×4 (03:50→21:30)
[2020-11-25] MEDS: Magnesium Sulfate/Water 2 GM/50 ML BAG IV SCH ×4 (03:50→21:30)
[2020-11-25] MEDS ORDERED: Iopamidol 612 MG/ML 50 ML SDV PO ONE (03:57)
[2020-11-25] MEDS: Tolterodine 2 MG Tab PO SCH ×2 (08:00→20:01)
[2020-11-25] MEDS: Lubiprostone 24 MCG Cap PO SCH ×2 (08:00→17:14)
[2020-11-25] MEDS: Venlafaxine 75 MG Tab PO SCH ×3 (08:00→20:01)
[2020-11-25] MEDS: Levothyroxine 100 MCG Tab PO SCH (08:00)
[2020-11-25] MEDS: Magnesium Oxide 400 MG Tab PO SCH (08:01)
--- NOTE | 2020-11-25 08:41 | PCM.PN ---
- General Info Date of Service: 11/25/20 Admission Dx/Problem (Free Text): Admission Diagnosis/Problem Admission Diagnosis/Problem Sepsis Subjective Update: No significant events reported overnight. The patient denies significant abdominal pain this morning. She did have fistulograms done as well as EGD yesterday which were largely unrevealing. Case discussed with Dr. Betancourt this morning. Functional Status: Reports: Pain Controlled - Review of Systems General: Denies: Chills, Night Sweats HEENT: Reports: No Symptoms Pulmonary: Reports: Cough. Denies: Hemoptysis, Wheezing Cardiovascular: Reports: No Symptoms Gastrointestinal: Denies: Nausea, Vomiting Genitourinary: Reports: No Symptoms Musculoskeletal: Reports: No Symptoms Skin: Reports: No Symptoms Neurological: Reports: No Symptoms Psychiatric: Reports: No Symptoms - Patient Data Vitals - Most Recent: Last Vital Signs Temp 97.0 F 11/25/20 04:40 Pulse 88 11/25/20 07:00 Resp 22 H 11/25/20 07:00 BP 114/62 11/25/20 07:00 Pulse Ox 94 L 11/25/20 07:00 Weight - Most Recent: 141 lb 15.643 oz I&O - Last 24 Hours: Intake & Output 11/24/20 11/25/20 11/25/20 22:59 06:59 14:59 Intake Total 2106 1581 Output Total 1965 1230 Balance 141 351 Lab Results Last 24 Hours: Laboratory Results - last 24 hr 11/25/20 11/25/20 Range/Units 04:05 04:05 WBC 9.1 (4.5-11.0) K/uL RBC 4.58 (3.30-5.50) M/uL Hgb 12.4 (12.0-15.0) g/dL Hct 39.6 (36.0-48.0) % MCV 87 (80-98) fL MCH 27 (27-31) pg MCHC 31 L (32-36) % Plt Count 357 (150-400) K/uL Sodium 143 (140-148) mmol/L Potassium 3.9 (3.6-5.2) mmol/L Chloride 102 (100-108) mmol/L Carbon Dioxide 31 (21-32) mmol/L Anion Gap 10.0 (5.0-14.0) mmol/L BUN 10 D (7-18) mg/dL Creatinine 0.6 (0.6-1.0) mg/dL Est Cr Clr Drug Dosing 76.27 mL/min Estimated GFR (MDRD) > 60 (>60) Glucose 111 H (74-106) mg/dL Calcium 8.4 L (8.5-10.1) mg/dL Phosphorus 4.2 (2.5-4.9) mg/dL Magnesium 2.6 H (1.8-2.4) mg/dL Total Bilirubin 0.2 (0.2-1.0) mg/dL AST 13 L (15-37) U/L ALT 24 (12-78) U/L Alkaline Phosphatase 119 H (46-116) U/L NT-Pro-B Natriuret Pep 329 H (5-125) pg/mL Total Protein 6.5 (6.4-8.2) g/dL Albumin 2.4 L (3.4-5.0) g/dL Globulin 4.1 H (2.3-3.5) g/dL Albumin/Globulin Ratio 0.6 L (1.2-2.2) Misael Results Last 24 Hours: Microbiology 11/22/20 09:36 Gram Stain - Final Raul Romano Drainage Wound Culture - Final Enterobacter Cloacae Ss Candace. Escherichia Coli Viridans Streptococcus Viridans Streptococcus#2 11/22/20 09:36 Gram Stain - Final Raul Romano Drainage Wound Culture - Final 11/22/20 09:00 Aerobic Blood Culture - Preliminary Blood NO GROWTH AFTER 2 DAYS Anaerobic Blood Culture - Preliminary NO GROWTH AFTER 2 DAYS 11/22/20 08:51 Aerobic Blood Culture - Preliminary Blood NO GROWTH AFTER 2 DAYS Anaerobic Blood Culture - Preliminary NO GROWTH AFTER 2 DAYS 11/22/20 09:49 Urine Culture - Final Urine, Hunter Cath (Indwelling) NO GROWTH AFTER 2 DAYS Med Orders - Current: Current Medications Acetaminophen (Acetaminophen 325 Mg Tab) 650 mg PO Q4H PRN PRN Reason: Fever Alprazolam (Alprazolam 0.5 Mg Tab) 0.5 mg PO Q6H PRN PRN Reason: Anxiety Last Admin: 11/24/20 05:20 Dose: 0.5 mg Documented by: Hydromorphone HCl (Hydromorphone/Normal Saline 15 Mg/30 Ml Linen Room Attendant) 0 mg IV ASDIRECTED PRN; Protocol PRN Reason: [employer] Linezolid 600 mg/ Premix 300 mls @ 300 mls/hr IV Q12H [facility] Last Admin: 11/24/20 20:40 Dose: 300 mls/hr Documented by: Meropenem 500 mg/ Sodium (Chloride) 50 mls @ 100 mls/hr IV Q6H [facility] Last Admin: 11/25/20 03:50 Dose: 100 mls/hr Documented by: Aztreonam 1 gm/ Sodium (Chloride) 50 mls @ 100 mls/hr IV Q8H [facility] Last Admin: 11/25/20 03:49 Dose: 100 mls/hr Documented by: Magnesium Sulfate (Magnesium Sulfate In Water 2 Gm/50 Ml) 2 gm in 50 mls @ 25 mls/hr IV Q6H [facility] Stop: 11/26/20 05:59 Last Admin: 11/25/20 03:50 Dose: 25 mls/hr Documented by: Dextrose/Lactated Ringer's (Dextrose 5%-Lactated Ringers) 1,000 mls @ 25 mls/hr IV ASDIRECTED [facility] Multivitamins/Minerals 10 ml/Zinc 1 ml/ Amino Ac/Electrol/Dextrose/Calcium 1,011 mls @ 100 mls/hr IV .BY DURATION [facility] Last Admin: 11/24/20 11:51 Dose: 100 mls/hr Documented by: Amino Ac/Electrol/Dextrose/Calcium (Clinimix E 5/15) 1,000 mls @ 100 mls/hr IV .BY DURATION [facility] Last Admin: 11/24/20 22:27 Dose: 100 mls/hr Documented by: Iopamidol (Iopamidol 612 Mg/Ml 100 Ml Bottle) 70 ml .XX . DIRECTED PRN PRN Reason: RADIOLOGY EXAM Stop: 11/25/20 10:02 Last Admin: 11/24/20 10:07 Dose: 70 ml Documented by: Levothyroxine Sodium (Levothyroxine 100 Mcg Tab) 100 mcg PO DAILY@0730 [facility] Last Admin: 11/25/20 08:00 Dose: 100 mcg Documented by: Lidocaine HCl (Lidocaine 2% Jelly 30 Ml Tube) 0 ml TOP QID PRN PRN Reason: PAIN Last Admin: 11/24/20 10:06 Dose: 1 applic Documented by: Lubiprostone (Lubiprostone 24 Mcg Cap) 24 mcg PO BIDMEALS [facility] Last Admin: 11/25/20 08:00 Dose: 24 mcg Documented by: Magnesium Oxide (Magnesium Oxide 400 Mg Tab) 400 mg PO DAILY [facility] Last Admin: 11/25/20 08:01 Dose: Not Given Documented by: Metoclopramide HCl (Metoclopramide 10 Mg/2 Ml Sdv) 10 mg IV Q6H PRN PRN Reason: N/V Last Admin: 11/24/20 10:28 Dose: 10 mg Documented by: Naloxone HCl (Naloxone 0.4 Mg/Ml Sdv) 0.1 mg IV ASDIRECTED PRN PRN Reason: decreased respiratory rate Ondansetron HCl (Ondansetron 4 Mg/2 Ml Sdv) 4 mg IVPUSH Q4H PRN PRN Reason: Nausea/Vomiting Last Admin: 11/22/20 23:12 Dose: 4 mg Documented by: Pantoprazole Sodium (Pantoprazole 40 Mg Vial) 40 mg IV Q24H [facility] Last Admin: 11/24/20 10:08 Dose: 40 mg Documented by: Tolterodine Tartrate (Tolterodine 2 Mg Tab) 2 mg PO BID [facility] Last Admin: 11/25/20 08:00 Dose: 2 mg Documented by: Venlafaxine HCl (Venlafaxine 75 Mg Tab) 150 mg PO TID [facility] Last Admin: 11/25/20 08:00 Dose: 150 mg Documented by: Discontinued Medications Fentanyl (Fentanyl 100 Mcg/2 Ml Sdv) Confirm Administered Dose 100 mcg .ROUTE .STK-MED ONE Stop: 11/24/20 07:05 Heparin Sodium (Porcine) (Heparin Sodium 100 Units/Ml 5 Ml Syringe) Confirm Administered Dose 500 units .ROUTE .STK-MED ONE Stop: 11/24/20 06:31 Last Admin: 11/24/20 08:13 Dose: 500 units Documented by: Lactated Ringer's (Ringers, Lactated) 1,000 mls @ 999 mls/hr IV ONETIME ONE Stop: 11/22/20 10:15 Last Admin: 11/22/20 08:57 Dose: 999 mls/hr Documented by: Dextrose/Lactated Ringer's (Dextrose 5%-Lactated Ringers) 1,000 mls @ 200 mls/hr IV ASDIRECTED [facility] Last Admin: 11/23/20 05:48 Dose: 200 mls/hr Documented by: Acetaminophen 1,000 mg/ Premix 100 mls @ 400 mls/hr IV NOW ONE Stop: 11/22/20 09:44 Last Admin: 11/22/20 09:47 Dose: 400 mls/hr Documented by: Acetaminophen 1,000 mg/ Premix 100 mls @ 400 mls/hr IV Q8H PRN PRN Reason: FEVER/CHILLS Stop: 11/23/20 17:31 Last Admin: 11/22/20 19:03 Dose: 400 mls/hr Documented by: Lactated Ringer's (Ringers, Lactated) 1,000 mls @ 999 mls/hr IV ASDIRECTED [facility] Stop: 11/22/20 11:01 Last Admin: 11/22/20 10:16 Dose: 999 mls/hr Documented by: Sodium Chloride (Normal Saline) 75 mls @ 3 mls/sec IV ONETIME ONE Stop: 11/22/20 10:33 Last Admin: 11/22/20 10:52 Dose: 3 mls/sec Documented by: Potassium Phosphate 15 mmol/ (Premix) 250 mls @ 83.333 mls/hr IV Q3H [facility] Stop: 11/23/20 15:59 Last Admin: 11/23/20 12:38 Dose: 83.333 mls/hr Documented by: Dextrose/Lactated Ringer's (Dextrose 5%-Lactated Ringers) 1,000 mls @ 100 mls/hr IV ASDIRECTED [facility] Stop: 11/24/20 11:55 Last Admin: 11/24/20 03:32 Dose: 100 mls/hr Documented by: Iopamidol (Iopamidol 612 Mg/Ml 100 Ml Bottle) 100 ml IV . DIRECTED PRN PRN Reason: RADIOLOGY EXAM Stop: 11/22/20 10:33 Last Admin: 11/22/20 10:52 Dose: 92 ml Documented by: Iopamidol (Iopamidol 612 Mg/Ml 50 Ml Sdv) 50 ml PO ASDIRECTED ONE Stop: 11/25/20 03:58 Last Admin: 11/25/20 04:13 Dose: 50 ml Documented by: Levothyroxine Sodium (Levothyroxine 100 Mcg Tab) 100 mcg PO DAILY [facility] Levothyroxine Sodium (Levothyroxine 100 Mcg Tab) 100 mcg PO DAILY@0000 [facility] Lidocaine/Epinephrine (Lidocaine 1% With Epinephrine 1:100,000 50 Ml Mdv) Confirm Administered Dose 50 ml .ROUTE .STK-MED ONE Stop: 11/24/20 07:22 Last Admin: 11/24/20 08:14 Dose: 15 ml Documented by: Midazolam HCl (Midazolam 1 Mg/Ml 2 Ml Sdv) Confirm Administered Dose 2 mg .ROUTE .STK-MED ONE Stop: 11/24/20 07:05 Cyanocobalamin ( Vitamin B-12) 1,000 McgPom 0 mcg SL DAILY [facility] Last Admin: 11/24/20 10:49 Dose: Not Given Documented by: Multivit-Min ( Centrum Fresh & Fruity)Pom 0 dose PO DAILY [facility] Last Admin: 11/24/20 10:49 Dose: Not Given Documented by: Propofol (Propofol 200 Mg/20 Ml Sdv) Confirm Administered Dose 200 mg .ROUTE .STK-MED ONE Stop: 11/24/20 07:05 Sodium Chloride (Sodium Chloride 0.9% 10 Ml Syringe) 10 ml FLUSH ONETIME PRN PRN Reason: PER RADIOLOGY PROTOCOL Stop: 11/22/20 10:33 Last Admin: 11/22/20 10:52 Dose: 10 ml Documented by: - Exam Quality Assessment: Central Line/PICC General: Alert, Oriented HEENT: No: Scleral Icterus Neck: Supple, Trachea Midline, No JVD Lungs: Crackles Cardiovascular: Regular Rate, Regular Rhythm GI/Abdominal Exam: Soft, Non-Tender Extremities: Normal Inspection Neurological: No New Focal Deficit Psy/Mental Status: Alert, Normal Affect, Normal Mood - Patient Data Lab Results Last 24 hrs: Laboratory Results - last 24 hr 11/25/20 11/25/20 Range/Units 04:05 04:05 WBC 9.1 (4.5-11.0) K/uL RBC 4.58 (3.30-5.50) M/uL Hgb 12.4 (12.0-15.0) g/dL Hct 39.6 (36.0-48.0) % MCV 87 (80-98) fL MCH 27 (27-31) pg MCHC 31 L (32-36) % Plt Count 357 (150-400) K/uL Sodium 143 (140-148) mmol/L Potassium 3.9 (3.6-5.2) mmol/L Chloride 102 (100-108) mmol/L Carbon Dioxide 31 (21-32) mmol/L Anion Gap 10.0 (5.0-14.0) mmol/L BUN 10 D (7-18) mg/dL Creatinine 0.6 (0.6-1.0) mg/dL Est Cr Clr Drug Dosing 76.27 mL/min Estimated GFR (MDRD) > 60 (>60) Glucose 111 H (74-106) mg/dL Calcium 8.4 L (8.5-10.1) mg/dL Phosphorus 4.2 (2.5-4.9) mg/dL Magnesium 2.6 H (1.8-2.4) mg/dL Total Bilirubin 0.2 (0.2-1.0) mg/dL AST 13 L (15-37) U/L ALT 24 (12-78) U/L Alkaline Phosphatase 119 H (46-116) U/L NT-Pro-B Natriuret Pep 329 H (5-125) pg/mL Total Protein 6.5 (6.4-8.2) g/dL Albumin 2.4 L (3.4-5.0) g/dL Globulin 4.1 H (2.3-3.5) g/dL Albumin/Globulin Ratio 0.6 L (1.2-2.2) Result Diagrams: 11/25/20 04:05 11/25/20 04:05 Misael Results Last 24 hrs: Microbiology 11/22/20 09:36 Gram Stain - Final Raul Romano Drainage Wound Culture - Final Enterobacter Cloacae Ss Candace. Escherichia Coli Viridans Streptococcus Viridans Streptococcus#2 11/22/20 09:36 Gram Stain - Final Raul Romano Drainage Wound Culture - Final 11/22/20 09:00 Aerobic Blood Culture - Preliminary Blood NO GROWTH AFTER 2 DAYS Anaerobic Blood Culture - Preliminary NO GROWTH AFTER 2 DAYS 11/22/20 08:51 Aerobic Blood Culture - Preliminary Blood NO GROWTH AFTER 2 DAYS Anaerobic Blood Culture - Preliminary NO GROWTH AFTER 2 DAYS 11/22/20 09:49 Urine Culture - Final Urine, Hunter Cath (Indwelling) NO GROWTH AFTER 2 DAYS Sepsis Event Note - Evaluation Sepsis Screening Result: No Definite Risk - Focused Exam Vital Signs: Vital Signs Temp Pulse Resp BP Pulse Ox 11/25/20 07:00 88 22 H 114/62 94 L 11/25/20 06:00 17 116/69 94 L 11/25/20 05:00 22 H 125/77 93 L 11/25/20 04:40 97.0 F 25 H 127/75 94 L 11/25/20 03:00 22 H 131/75 94 L 11/25/20 02:00 23 H 135/76 95 11/25/20 01:00 23 H 128/73 93 L 11/25/20 00:00 18 134/72 90 L 11/24/20 23:00 98.0 F 25 H 142/70 H 97 11/24/20 22:00 18 110/59 L 11/24/20 21:00 30 H 138/71 - Problem List Review Problem List Initiated/Reviewed/Updated: Yes - My Orders Last 24 Hours: My Active Orders 11/24/20 15:16 Acetaminophen [TylenoL] 650 mg PO Q4H PRN - Plan Plan:: ASSESSMENT AND PLAN - SEPSIS LEFT LOWER LOBE PNEUMONIA Left lower lobe pneumonia noted on admission imaging. The patient did present with coughing which is since improved. Polymicrobial growth out of WALT drain culture. Patient remains on broad-spectrum antibiotics. Case discussed with Dr. Betancourt today with tentative plan to pull drains and maintain antibiotics at least through the weekend. With regard to the patient's pneumonia, current antibiotics through the weekend should provide adequate treatment. With regard to polymicrobial growth from drains, defer to surgery.
[2020-11-25] MEDS: Linezolid 600 MG in Premix Bag 1 BAG IV SCH ×2 (08:56→20:30)
[2020-11-25] MEDS: 1: AA 5%/Calcium/D15W/Lytes 1,000 ML with MVI, Adult with Vitamin K 10 ML, Zinc/Copper/M IV SCH ×6 (08:56→19:59)
[2020-11-25] MEDS: Metoclopramide 10 MG/2 ML SDV IV PRN (09:16)
[2020-11-25] MEDS: Pantoprazole 40 MG Vial IV SCH (10:13)
[2020-11-25] MEDS: Ondansetron 4 MG/2 ML SDV IVPUSH PRN ×2 (13:07→17:25)
[2020-11-25] MEDS: ALPRAZolam 0.5 MG Tab PO PRN (22:33)
[2020-11-26] MEDS: Magnesium Sulfate/Water 2 GM/50 ML BAG IV SCH (03:10)
[2020-11-26] MEDS: Meropenem 500 MG in Sodium Chloride 0.9% 50 ML IV SCH ×4 (04:40→21:40)
[2020-11-26] MEDS: 1: AA 5%/Calcium/D15W/Lytes 1,000 ML with MVI, Adult with Vitamin K 10 ML, Zinc/Copper/M IV SCH ×6 (04:50→15:55)
[2020-11-26] MEDS: Dextrose 5%-Lactated Ringers 1,000 ML IV SCH (04:51)
[2020-11-26] MEDS ORDERED: Neomycin/Polymyxin B Bladder Irrigation 1 ML Amp ONE (06:38)
[2020-11-26] MEDS ORDERED: Bupivacaine 0.5% 50 ML MDV ONE (06:40)
[2020-11-26] MEDS ORDERED: Lidocaine 1% with EPINEPHrine 1:100,000 50 ML MDV ONE (06:40)
[2020-11-26] MEDS ORDERED: fentaNYL 100 MCG/2 ML SDV ONE (07:16)
[2020-11-26] MEDS ORDERED: Propofol 200 MG/20 ML SDV ONE (07:16)
[2020-11-26] MEDS ORDERED: Midazolam 1 MG/ML 2 ML SDV ONE (07:17)
[2020-11-26] MEDS ORDERED: Lactated Ringers 1,000 ML ONE (07:51)
[2020-11-26] MEDS: Magnesium Oxide 400 MG Tab PO SCH (09:11)
[2020-11-26] MEDS: Ondansetron 4 MG/2 ML SDV IVPUSH PRN (09:11)
[2020-11-26] MEDS: ALPRAZolam 0.5 MG Tab PO PRN ×2 (09:11→22:55)
[2020-11-26] MEDS: Levothyroxine 100 MCG Tab PO SCH (09:11)
[2020-11-26] MEDS: Lubiprostone 24 MCG Cap PO SCH ×2 (09:11→17:06)
[2020-11-26] MEDS: Linezolid 600 MG in Premix Bag 1 BAG IV SCH ×2 (09:11→21:40)
[2020-11-26] MEDS: Venlafaxine 75 MG Tab PO SCH ×3 (09:11→21:39)
[2020-11-26] MEDS: Metoclopramide 10 MG/2 ML SDV IV SCH ×3 (09:12→21:40)
[2020-11-26] MEDS: Tolterodine 2 MG Tab PO SCH ×2 (09:12→21:39)
[2020-11-26] MEDS: Pantoprazole 40 MG Vial IV SCH (09:16)
--- NOTE | 2020-11-26 09:21 | PCM.PN ---
- General Info Date of Service: 11/26/20 Admission Dx/Problem (Free Text): Admission Diagnosis/Problem Admission Diagnosis/Problem Sepsis Subjective Update: No significant events reported overnight. The patient continues to deny significant abdominal pain. She had her abdominal drains pulled this morning. Imaging has shown no evidence of obstruction or impaired peristalsis. However, the patient continues to report difficulty tolerating oral intake. The case was discussed with Dr. Betancourt this morning who is started the patient on scheduled Reglan along with Zofran in an effort to improve her intake. She remains on broad-spectrum antibiotics. Functional Status: Reports: Pain Controlled. Denies: Tolerating Diet - Review of Systems General: Reports: No Symptoms HEENT: Reports: No Symptoms Pulmonary: Reports: No Symptoms Cardiovascular: Reports: No Symptoms Genitourinary: Reports: No Symptoms Musculoskeletal: Reports: No Symptoms Skin: Reports: No Symptoms Neurological: Reports: No Symptoms Psychiatric: Reports: No Symptoms - Patient Data Vitals - Most Recent: Last Vital Signs Temp 97.3 F 11/26/20 08:23 Pulse 88 11/26/20 09:00 Resp 20 11/26/20 09:00 BP 119/69 11/26/20 09:00 Pulse Ox 94 L 11/26/20 09:00 Weight - Most Recent: 141 lb 15.643 oz I&O - Last 24 Hours: Intake & Output 11/25/20 11/26/20 11/26/20 22:59 06:59 14:59 Intake Total 2448 1651 Output Total 1500 965 Balance 948 686 Lab Results Last 24 Hours: Laboratory Results - last 24 hr 11/22/20 11/26/20 11/26/20 Range/Units 09:00 04:10 04:10 WBC 6.4 (4.5-11.0) K/uL RBC 4.14 (3.30-5.50) M/uL Hgb 11.3 L (12.0-15.0) g/dL Hct 36.0 (36.0-48.0) % MCV 87 (80-98) fL MCH 27 (27-31) pg MCHC 31 L (32-36) % Plt Count 337 (150-400) K/uL Neut % (Auto) 63 (36-66) % Lymph % (Auto) 19 L (24-44) % [place] % (Auto) 11 H (2-6) % Eos % (Auto) 6 H (2-4) % Baso % (Auto) 1 (0-1) % Sodium 144 (140-148) mmol/L Potassium 4.2 (3.6-5.2) mmol/L Chloride 105 (100-108) mmol/L Carbon Dioxide 30 (21-32) mmol/L Anion Gap 8.9 (5.0-14.0) mmol/L BUN 14 (7-18) mg/dL Creatinine 0.6 (0.6-1.0) mg/dL Est Cr Clr Drug Dosing 76.27 mL/min Estimated GFR (MDRD) > 60 (>60) Glucose 112 H (74-106) mg/dL Calcium 8.2 L (8.5-10.1) mg/dL Phosphorus 4.5 (2.5-4.9) mg/dL Total Bilirubin 0.2 (0.2-1.0) mg/dL AST 10 L (15-37) U/L ALT 19 (12-78) U/L Alkaline Phosphatase 104 (46-116) U/L NT-Pro-B Natriuret Pep 268 H (5-125) pg/mL Total Protein 5.9 L (6.4-8.2) g/dL Albumin 2.1 L (3.4-5.0) g/dL Globulin 3.8 H (2.3-3.5) g/dL Albumin/Globulin Ratio 0.6 L (1.2-2.2) TSH, Ultra Sensitive 0.050 L (0.358-3.740) uIU/mL Crossmatch See Detail Misael Results Last 24 Hours: Microbiology 11/22/20 09:00 Aerobic Blood Culture - Preliminary Blood NO GROWTH AFTER 4 DAYS Anaerobic Blood Culture - Preliminary NO GROWTH AFTER 4 DAYS 11/22/20 08:51 Aerobic Blood Culture - Preliminary Blood NO GROWTH AFTER 4 DAYS Anaerobic Blood Culture - Preliminary NO GROWTH AFTER 4 DAYS 11/22/20 09:36 Gram Stain - Final Raul Romano Drainage Wound Culture - Final Enterobacter Cloacae Ss Candace. 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 Linezolid 600 mg/ Premix 300 mls @ 300 mls/hr IV Q12H [facility] Last Admin: 11/26/20 09:11 Dose: 300 mls/hr Documented by: Meropenem 500 mg/ Sodium (Chloride) 50 mls @ 100 mls/hr IV Q6H [facility] Last Admin: 11/26/20 04:40 Dose: 100 mls/hr Documented by: Aztreonam 1 gm/ Sodium (Chloride) 50 mls @ 100 mls/hr IV Q8H [facility] Last Admin: 11/26/20 03:07 Dose: 100 mls/hr Documented by: Dextrose/Lactated Ringer's (Dextrose 5%-Lactated Ringers) 1,000 mls @ 25 mls/hr IV ASDIRECTED [facility] Last Admin: 11/26/20 04:51 Dose: 25 mls/hr Documented by: Multivitamins/Minerals 10 ml/Zinc 1 ml/ Amino Ac/Electrol/Dextrose/Calcium 1,011 mls @ 100 mls/hr IV .BY DURATION [facility] Last Admin: 11/26/20 04:50 Dose: 100 mls/hr Documented by: Amino Ac/Electrol/Dextrose/Calcium (Clinimix E 5/15) 1,000 mls @ 100 mls/hr IV .BY DURATION [facility] Last Admin: 11/25/20 19:59 Dose: 100 mls/hr Documented by: Levothyroxine Sodium (Levothyroxine 100 Mcg Tab) 100 mcg PO DAILY@0730 [facility] Last Admin: 11/26/20 09:11 Dose: 100 mcg Documented by: Lidocaine HCl (Lidocaine 2% Jelly 30 Ml Tube) 0 ml TOP QID PRN PRN Reason: PAIN Last Admin: 11/24/20 10:06 Dose: 1 applic Documented by: Lubiprostone (Lubiprostone 24 Mcg Cap) 24 mcg PO BIDMEALS [facility] Last Admin: 11/26/20 09:11 Dose: 24 mcg Documented by: Magnesium Oxide (Magnesium Oxide 400 Mg Tab) 400 mg PO DAILY [facility] Last Admin: 11/26/20 09:11 Dose: 400 mg Documented by: Metoclopramide HCl (Metoclopramide 10 Mg/2 Ml Sdv) 10 mg IV Q6H [facility] Last Admin: 11/26/20 09:12 Dose: 10 mg Documented by: Naloxone HCl (Naloxone 0.4 Mg/Ml Sdv) 0.1 mg IV ASDIRECTED PRN PRN Reason: decreased respiratory rate Ondansetron HCl (Ondansetron 4 Mg/2 Ml Sdv) 4 mg IVPUSH Q4H PRN PRN Reason: Nausea/Vomiting Last Admin: 11/26/20 09:11 Dose: 4 mg Documented by: Ondansetron HCl (Ondansetron 4 Mg/2 Ml Sdv) 4 mg IVPUSH TID@0745,1145,1645 [facility] Pantoprazole Sodium (Pantoprazole 40 Mg Vial) 40 mg IV Q24H [facility] Last Admin: 11/25/20 10:13 Dose: 40 mg Documented by: Tolterodine Tartrate (Tolterodine 2 Mg Tab) 2 mg PO BID [facility] Last Admin: 11/26/20 09:12 Dose: 2 mg Documented by: Venlafaxine HCl (Venlafaxine 75 Mg Tab) 150 mg PO TID [facility] Last Admin: 11/26/20 09:11 Dose: 150 mg Documented by: Discontinued Medications Bupivacaine HCl (Bupivacaine 0.5% 50 Ml Mdv) Confirm Administered Dose 50 ml .ROUTE .STK-MED ONE Stop: 11/26/20 06:41 Last Admin: 11/26/20 07:20 Dose: 50 ml Documented by: Fentanyl (Fentanyl 100 Mcg/2 Ml Sdv) Confirm Administered Dose 100 mcg .ROUTE .STK-MED ONE Stop: 11/24/20 07:05 Fentanyl (Fentanyl 100 Mcg/2 Ml Sdv) Confirm Administered Dose 100 mcg .ROUTE .STK-MED ONE Stop: 11/26/20 07:17 Heparin Sodium (Porcine) (Heparin Sodium 100 Units/Ml 5 Ml Syringe) Confirm Administered Dose 500 units .ROUTE .STK-MED ONE Stop: 11/24/20 06:31 Last Admin: 11/24/20 08:13 Dose: 500 units Documented by: Lactated Ringer's (Ringers, Lactated) 1,000 mls @ 999 mls/hr IV ONETIME ONE Stop: 11/22/20 10:15 Last Admin: 11/22/20 08:57 Dose: 999 mls/hr Documented by: Dextrose/Lactated Ringer's (Dextrose 5%-Lactated Ringers) 1,000 mls @ 200 mls/hr IV ASDIRECTED [facility] Last Admin: 11/23/20 05:48 Dose: 200 mls/hr Documented by: Acetaminophen 1,000 mg/ Premix 100 mls @ 400 mls/hr IV NOW ONE Stop: 11/22/20 09:44 Last Admin: 11/22/20 09:47 Dose: 400 mls/hr Documented by: Acetaminophen 1,000 mg/ Premix 100 mls @ 400 mls/hr IV Q8H PRN PRN Reason: FEVER/CHILLS Stop: 11/23/20 17:31 Last Admin: 11/22/20 19:03 Dose: 400 mls/hr Documented by: Lactated Ringer's (Ringers, Lactated) 1,000 mls @ 999 mls/hr IV ASDIRECTED [facility] Stop: 11/22/20 11:01 Last Admin: 11/22/20 10:16 Dose: 999 mls/hr Documented by: Sodium Chloride (Normal Saline) 75 mls @ 3 mls/sec IV ONETIME ONE Stop: 11/22/20 10:33 Last Admin: 11/22/20 10:52 Dose: 3 mls/sec Documented by: Magnesium Sulfate (Magnesium Sulfate In Water 2 Gm/50 Ml) 2 gm in 50 mls @ 25 mls/hr IV Q6H [facility] Stop: 11/26/20 05:59 Last Admin: 11/26/20 03:10 Dose: 25 mls/hr Documented by: Potassium Phosphate 15 mmol/ (Premix) 250 mls @ 83.333 mls/hr IV Q3H [facility] Stop: 11/23/20 15:59 Last Admin: 11/23/20 12:38 Dose: 83.333 mls/hr Documented by: Dextrose/Lactated Ringer's (Dextrose 5%-Lactated Ringers) 1,000 mls @ 100 mls/hr IV ASDIRECTED [facility] Stop: 11/24/20 11:55 Last Admin: 11/24/20 03:32 Dose: 100 mls/hr Documented by: Lactated Ringer's (Ringers, Lactated) Confirm Administered Dose 1,000 mls @ as directed .ROUTE .STK-MED ONE Stop: 11/26/20 07:52 Iopamidol (Iopamidol 612 Mg/Ml 100 Ml Bottle) 100 ml IV . DIRECTED PRN PRN Reason: RADIOLOGY EXAM Stop: 11/22/20 10:33 Last Admin: 11/22/20 10:52 Dose: 92 ml Documented by: Iopamidol (Iopamidol 612 Mg/Ml 100 Ml Bottle) 70 ml .XX . DIRECTED PRN PRN Reason: RADIOLOGY EXAM Stop: 11/25/20 10:02 Last Admin: 11/24/20 10:07 Dose: 70 ml Documented by: Iopamidol (Iopamidol 612 Mg/Ml 50 Ml Sdv) 50 ml PO ASDIRECTED ONE Stop: 11/25/20 03:58 Last Admin: 11/25/20 04:13 Dose: 50 ml Documented by: Levothyroxine Sodium (Levothyroxine 100 Mcg Tab) 100 mcg PO DAILY [facility] Levothyroxine Sodium (Levothyroxine 100 Mcg Tab) 100 mcg PO DAILY@0000 CORTES Lidocaine/Epinephrine (Lidocaine 1% With Epinephrine 1:100,000 50 Ml Mdv) Confir m Administered Dose 50 ml .ROUTE .STK-MED ONE Stop: 11/24/20 07:22 Last Admin: 11/24/20 08:14 Dose: 15 ml Documented by: Lidocaine/Epinephrine (Lidocaine 1% With Epinephrine 1:100,000 50 Ml Mdv) Confirm Administered Dose 50 ml .ROUTE .STK-MED ONE Stop: 11/26/20 06:41 Last Admin: 11/26/20 07:20 Dose: 50 ml Documented by: Metoclopramide HCl (Metoclopramide 10 Mg/2 Ml Sdv) 10 mg IV Q6H PRN PRN Reason: N/V Last Admin: 11/25/20 09:16 Dose: 10 mg Documented by: Midazolam HCl (Midazolam 1 Mg/Ml 2 Ml Sdv) Confirm Administered Dose 2 mg .ROUTE .STK-MED ONE Stop: 11/24/20 07:05 Midazolam HCl (Midazolam 1 Mg/Ml 2 Ml Sdv) Confirm Administered Dose 2 mg .ROUTE .STK-MED ONE Stop: 11/26/20 07:18 Neomycin/Polymyxin (Neomycin/Polymyxin B Bladder Irrigation 1 Ml Amp) Confirm Administered Dose 1 ml .ROUTE .STK-MED ONE Stop: 11/26/20 06:39 Last Admin: 11/26/20 07:37 Dose: 1 ml Documented by: Cyanocobalamin ( Vitamin B-12) 1,000 McgPom 0 mcg SL DAILY [facility] Last Admin: 11/24/20 10:49 Dose: Not Given Documented by: Multivit-Min ( Centrum Fresh & Fruity)Pom 0 dose PO DAILY CORTES Last Admin: 11/24/20 10:49 Dose: Not Given Documented by: Propofol (Propofol 200 Mg/20 Ml Sdv) Confirm Administered Dose 200 mg .ROUTE .STK-MED ONE Stop: 11/24/20 07:05 Propofol (Propofol 200 Mg/20 Ml Sdv) Confirm Administered Dose 200 mg .ROUTE .STK-MED ONE Stop: 11/26/20 07:17 Sodium Chloride (Sodium Chloride 0.9% 10 Ml Syringe) 10 ml FLUSH ONETIME PRN PRN Reason: PER RADIOLOGY PROTOCOL Stop: 11/22/20 10:33 Last Admin: 11/22/20 10:52 Dose: 10 ml Documented by: - Exam General: Alert, Oriented, Cooperative HEENT: No: Scleral Icterus Neck: Supple, Trachea Midline Lungs: Clear to Auscultation Cardiovascular: Regular Rate, Regular Rhythm GI/Abdominal Exam: Soft. No: Guarding, Rigid Extremities: Normal Inspection Neurological: No New Focal Deficit Psy/Mental Status: Normal Affect, Normal Mood - Patient Data Lab Results Last 24 hrs: Laboratory Results - last 24 hr 11/22/20 11/26/20 11/26/20 Range/Units 09:00 04:10 04:10 WBC 6.4 (4.5-11.0) K/uL RBC 4.14 (3.30-5.50) M/uL Hgb 11.3 L (12.0-15.0) g/dL Hct 36.0 (36.0-48.0) % MCV 87 (80-98) fL MCH 27 (27-31) pg MCHC 31 L (32-36) % Plt Count 337 (150-400) K/uL Neut % (Auto) 63 (36-66) % Lymph % (Auto) 19 L (24-44) % [place] % (Auto) 11 H (2-6) % Eos % (Auto) 6 H (2-4) % Baso % (Auto) 1 (0-1) % Sodium 144 (140-148) mmol/L Potassium 4.2 (3.6-5.2) mmol/L Chloride 105 (100-108) mmol/L Carbon Dioxide 30 (21-32) mmol/L Anion Gap 8.9 (5.0-14.0) mmol/L BUN 14 (7-18) mg/dL Creatinine 0.6 (0.6-1.0) mg/dL Est Cr Clr Drug Dosing 76.27 mL/min Estimated GFR (MDRD) > 60 (>60) Glucose 112 H (74-106) mg/dL Calcium 8.2 L (8.5-10.1) mg/dL Phosphorus 4.5 (2.5-4.9) mg/dL Total Bilirubin 0.2 (0.2-1.0) mg/dL AST 10 L (15-37) U/L ALT 19 (12-78) U/L Alkaline Phosphatase 104 (46-116) U/L NT-Pro-B Natriuret Pep 268 H (5-125) pg/mL Total Protein 5.9 L (6.4-8.2) g/dL Albumin 2.1 L (3.4-5.0) g/dL Globulin 3.8 H (2.3-3.5) g/dL Albumin/Globulin Ratio 0.6 L (1.2-2.2) TSH, Ultra Sensitive 0.050 L (0.358-3.740) uIU/mL Crossmatch See Detail Result Diagrams: 11/26/20 04:10 11/26/20 04:10 Misael Results Last 24 hrs: Microbiology 11/22/20 09:00 Aerobic Blood Culture - Preliminary Blood NO GROWTH AFTER 4 DAYS Anaerobic Blood Culture - Preliminary NO GROWTH AFTER 4 DAYS 11/22/20 08:51 Aerobic Blood Culture - Preliminary Blood NO GROWTH AFTER 4 DAYS Anaerobic Blood Culture - Preliminary NO GROWTH AFTER 4 DAYS 11/22/20 09:36 Gram Stain - Final Raul Romano Drainage Wound Culture - Final Enterobacter Cloacae Ss Candace. Escherichia Coli Viridans Streptococcus Viridans Streptococcus#2 11/22/20 09:36 Gram Stain - Final Raul Romano Drainage Wound Culture - Final Sepsis Event Note - Evaluation Sepsis Screening Result: No Definite Risk - Focused Exam Vital Signs: Vital Signs Temp Temp Pulse Resp BP BP Pulse Ox 11/26/20 09:00 88 20 119/69 94 L 11/26/20 08:50 87 20 124/70 94 L 11/26/20 08:40 85 20 122/71 94 L 11/26/20 08:23 97.3 F 87 18 125/56 L 94 L 11/26/20 08:15 95.5 F L 92 16 108/65 96 11/26/20 08:10 93 16 110/59 L 97 11/26/20 08:05 94 16 102/63 99 11/26/20 08:00 96 16 106/53 L 97 11/26/20 07:55 95.5 F L 100 16 101/62 97 11/26/20 06:00 16 134/72 94 L 11/26/20 05:00 20 127/68 94 L 11/26/20 04:00 17 129/74 93 L 11/26/20 03:00 97.7 F 21 H 139/76 97 11/26/20 02:00 17 108/61 93 L 11/26/20 01:00 20 135/75 96 11/26/20 00:00 19 130/79 95 11/25/20 23:00 97.5 F 21 H 140/73 94 L 11/25/20 22:00 23 H 136/74 96 - Problem List Review Problem List Initiated/Reviewed/Updated: Yes - Plan Plan:: ASSESSMENT AND PLAN - SEPSIS LEFT LOWER LOBE PNEUMONIA POOR ORAL INTAKE Left lower lobe pneumonia noted on admission imaging. The patient did present with coughing which has since improved. Polymicrobial growth out of WALT drain culture. Patient remains on broad-spectrum antibiotics. The patient's abdominal drains were pulled today. She continues to report difficulty tolerating oral intake despite imaging showing no evidence of obstruction or impaired peristalsis. With regard to the patient's pneumonia, she will have received an adequate course of antibiotics by discharge to complete treatment. With regard to polymicrobial growth from drains and impaired oral intake, defer to surgery.
[2020-11-26] MEDS: Ondansetron 4 MG/2 ML SDV IVPUSH SCH ×2 (12:01→17:00)
[2020-11-26] MEDS: Acetaminophen 325 MG Tab PO PRN ×2 (17:47→22:55)
[2020-11-27] MEDS: 1: AA 5%/Calcium/D15W/Lytes 1,000 ML with MVI, Adult with Vitamin K 10 ML, Zinc/Copper/M IV SCH ×9 (01:56→21:27)
[2020-11-27] MEDS: Meropenem 500 MG in Sodium Chloride 0.9% 50 ML IV SCH ×4 (03:52→21:28)
[2020-11-27] MEDS: Metoclopramide 10 MG/2 ML SDV IV SCH ×4 (04:26→22:24)
[2020-11-27] MEDS ORDERED: Levothyroxine 25 MCG Tab PO SCH (07:30)
[2020-11-27] MEDS ORDERED: Levothyroxine 50 MCG Tab PO SCH (08:00)
[2020-11-27] MEDS: Ondansetron 4 MG/2 ML SDV IVPUSH SCH ×3 (08:43→16:39)
[2020-11-27] MEDS: Polyethylene Glycol 3350 Powder 17 GM Packet PO SCH (08:46)
[2020-11-27] MEDS: Linezolid 600 MG in Premix Bag 1 BAG IV SCH ×2 (08:48→21:31)
[2020-11-27] MEDS: Magnesium Oxide 400 MG Tab PO SCH (08:52)
[2020-11-27] MEDS: Tolterodine 2 MG Tab PO SCH ×2 (08:52→21:31)
[2020-11-27] MEDS: Venlafaxine 75 MG Tab PO SCH ×3 (08:52→21:31)
[2020-11-27] MEDS: Lubiprostone 24 MCG Cap PO SCH ×2 (08:53→16:39)
--- NOTE | 2020-11-27 09:08 | CR ---
[facility] HISTORY: Postbariatric surgery FINDINGS: Patient swallowed water-soluble contrast. Upright views of the abdomen show no evidence of extravasation or obstruction. There are 2 surgical drains in the upper abdomen. No oral contrast is seen within the drainage tubes IMPRESSION: Status post bariatric surgery and revision No extravasation or obstruction seen
[2020-11-27] MEDS ORDERED: hydrALAZINE 20 MG/ML SDV IVPUSH PRN (12:53)
--- NOTE | 2020-11-27 13:08 | PCM.SN.2 ---
- Free Text/Narrative Note: START OF DOCTOR NAVEEN PROGRESS NOTE Subjective: The patient complains of nausea and emesis with p.o. intake. She claims to have had a a fever overnight. She denies rigors. She admits to abdominal pain however she denies dyspnea. She states that she had a small bowel movement on it the morning of November 26, 2020. I explained to the patient her current medical condition and plan of care and I have answered all the questions Objective: General: -Alert -No acute distress -No dyspnea -No tachypnea -Obese Heart: -iRegular rate -Regular rhythm -No murmurs -No gallops -No rubs Lungs: -No wheeze -No rhonchi -No rales Abdomen: -Hypoactive bowel sounds in all four quadrants -No rebound -No guarding -No tenderness Extremities: -2/4 pulse in all four extremities -No clubbing -No cyanosis -No edema Additional Details / Additional Findings / Exceptions / Miscellaneous: Inspection of the WALT drain sites demonstrates no drainage at the present time however the dressing does show stigmata of previous drainage. There appears to be no sign of infection or erythema Pertinent Laboratory Results / Pertinent Radiology Results / Pertinent Diagnostic Results / Pertinent Vital Signs: Heart rate 105 bpm, blood pressure 167/103 however it is labile, hemoglobin 10.9 Assessment / Plan: Query colitis. Wound culture positive for Enterobacter cloacae, E. coli, strep viridans. Patient status post repositioning of WALT drains x2 on November 24, 2020 with surgery. Patient status post fistulogram and Tisseel placement on November 26, 2020. meropenem 500 mg IV every 6 hours plus linezolid 600 mg IV every 12 hours plus aztreonam 1 g IV every 8 hours. Left lower lobe pneumonia. Meropenem 500 mg IV every 6 hours plus linezolid 600 mg IV every 12 hours plus aztreonam 1 g IV every 8 hours Anemia with history of iron deficiency. Will monitor hemoglobin levels intermittently. Check serum ferritin, iron panel, fecal occult blood Hypothyroidism, iatrogenic. Synthroid has been discontinued Anxiety Overactive bladder. Detrol 2 mg p.o. twice daily Constipation. MiraLAX 34 g p.o. daily plus Reglan 10 mg IV every 6 hours IBS. Amitiza 24 mcg p.o. twice daily Depression. Effexor 150 mg p.o. 3 times daily Fibromyalgia Obesity. Patient be counseled regarding lifestyle modification History of vitamin B12 deficiency History of alcohol abuse, remote Hyperlipidemia History of vitamin D deficiency Neuropathy GERD. Protonix 40 mg IV daily DVT prophylaxis. Bilateral SCD Disposition: END OF DOCTOR EMAMIS PROGRESS NOTE
--- NOTE | 2020-11-27 13:19 | PN ---
DATE OF SERVICE: 11/26/2020 The patient has been afebrile with stable vital signs. She had her drains removed today along with irrigation of the drain tracts with neomycin and then fibrin sealant injected into the area around the fistula site. Hopefully, this will heal now without further problems. Otherwise, continue the IV antibiotics at least through today. She has not been able to really eat much in the way of anything, and if this continues, will probably need to get a Villagomez catheter in for some home TPN. This could also be used for subsequent chemotherapy if necessary. We will switch the Reglan to 10 mg q.6 hours as scheduled and then give her Zofran IV 15 minutes before meals in trying to see if we can get oral intake to improve. Zay Betancourt MD /[id number]
[2020-11-27] MEDS: Pantoprazole 40 MG Vial IV SCH (13:43)
[2020-11-27] MEDS: Acetaminophen 325 MG Tab PO PRN (17:02)
--- NOTE | 2020-11-27 17:12 | PN ---
DATE OF SERVICE: 11/27/2020 The patient had a T-max of 100.4. Vital signs otherwise have been stable. I suspect WALT drains has resulted in a little bit of inflammatory response. At any rate, she has had scant amount of drainage from one of the WALT sites, but overall this has appeared to be relatively minimal. Still unable to take much in orally. This was reviewed with the patient and we will try to have her focus on more calorie intake. Plan is to continue present antibiotics and TPN, and again we will try to have her working on getting oral intake. Mechanically, there is no reason that things are not going through, the upper GI x-ray looked completely normal on Friday morning. Zay Betancourt MD /[id number]
--- NOTE | 2020-11-27 17:24 | PN ---
DATE OF SERVICE: 11/23/2020 The patient has stabilized quite a bit over the last 24 hours after workup that appeared to be that she had a left lower lobe pneumonia. Thus far, blood cultures have been negative. A CT scan of the abdomen showed no evidence of fluid collection or worrisome findings. Presently, the temperature is running in the 97 range, heart rates in the 80 to 90s, blood pressure 122/65, and O2 saturation 94% on limited nasal cannula oxygen, and urine output has been satisfactory. The WALT drains, #1 has put out 195 mL over the 24 hours and #2 only 10 mL. One of WALT drains has had some mixed katharine and the other has just gram-positive cocci. At this point, the plan will be to continue present antibiotics. We will plan to proceed with upper endoscopy as she is having quite a bit in a way of dysphagia and central line insertion tomorrow for some TPN and then get her x-ray/fistulogram through both of the WALT drains. If those are at this point not showing any areas of fluid collection then we are able to begin pulling those drains out. Otherwise, her phosphate is marginally low, we are going to supplement it. Her potassium is quite low, we will supplement that as well. We will plan to proceed with these two procedures tomorrow. Zay Betancourt MD /[id number]
--- NOTE | 2020-11-27 18:44 | PN ---
DATE OF SERVICE: 11/25/2020 The patient has been afebrile with stable vital signs. Her upper GI x-ray this morning showed good flow through the esophagus, gastric pouch, and well into the small bowel, so I think we should be able to feed her in a sitting position at least with a full liquid diet. Otherwise, continue her TPN. The fistulogram yesterday showed essentially no extravasation around the drains. There over the duodenum as one would expect, so I think that these drains have been in since late September and the plan will be to pull the drains back and try to inject some fibrin sealant into the area around the fistula with fluoroscopic surveillance tomorrow and then remove the drains rest of the way. Otherwise, continue to treat the pneumonia with present antibiotics. Zay Betancourt MD /[id number]
[2020-11-27] MEDS ORDERED: LORazepam 1 MG Tab PO PRN (21:07)
[2020-11-27] MEDS: LORazepam 2 MG/ML SDV IVPUSH PRN (21:28)
[2020-11-28] MEDS: LORazepam 2 MG/ML SDV IVPUSH PRN ×2 (03:43→20:36)
[2020-11-28] MEDS: Meropenem 500 MG in Sodium Chloride 0.9% 50 ML IV SCH ×4 (04:25→22:09)
[2020-11-28] MEDS: Dextrose 5%-Lactated Ringers 1,000 ML IV SCH (04:25)
[2020-11-28] MEDS: Metoclopramide 10 MG/2 ML SDV IV SCH ×4 (04:32→22:09)
[2020-11-28] MEDS ORDERED: Benzocaine/Cetylpyridinium/Menthol Lozenge MUCMEM PRN ×2 (06:37→08:09)
[2020-11-28] MEDS: Ondansetron 4 MG/2 ML SDV IVPUSH SCH ×3 (07:53→17:19)
[2020-11-28] MEDS: Lubiprostone 24 MCG Cap PO SCH ×2 (07:53→17:53)
--- NOTE | 2020-11-28 08:37 | PCM.SN.2 ---
- Free Text/Narrative Note: START OF DOCTOR EMAMIS PROGRESS NOTE Subjective: Overnight the patient complains of fever, nausea, emesis, cough which is productive of white sputum. She denies rigors, wheeze, dyspnea. She complains of abdominal pain. I explained to the patient her current medical condition and plan of care and I have answered all of her questions Objective: General: -Alert -No acute distress -No dyspnea -No tachypnea -Obese Heart: -iRegular rate -Regular rhythm -No murmurs -No gallops -No rubs Lungs: -No wheeze -No rhonchi -No rales Abdomen: -Hypoactive bowel sounds in all four quadrants -No rebound -No guarding -No tenderness Extremities: -2/4 pulse in all four extremities -No clubbing -No cyanosis -No edema Additional Details / Additional Findings / Exceptions / Miscellaneous: Pertinent Laboratory Results / Pertinent Radiology Results / Pertinent Diagnostic Results / Pertinent Vital Signs: Heart rate 101 bpm, blood pressure 159/80, respirations 22, 91% on room air, hemoglobin 10.9, platelet count 413,000 Assessment / Plan: Query colitis. Wound culture positive for Enterobacter cloacae, E. coli, strep viridans. Patient status post repositioning of WALT drains x2 on November 24, 2020 with surgery. Patient status post fistulogram and Tisseel placement on November 26, 2020. meropenem 500 mg IV every 6 hours plus linezolid 600 mg IV every 12 hours plus aztreonam 1 g IV every 8 hours. Left lower lobe pneumonia. Meropenem 500 mg IV every 6 hours plus linezolid 600 mg IV every 12 hours plus aztreonam 1 g IV every 8 hours Nausea. Scopolamine patch: 1.5 mg transdermally every 72 hours plus Reglan 10 mg IV every 6 hours Pretension. Metoprolol 50 mg p.o. twice daily Iron deficiency anemia. Will monitor hemoglobin levels intermittently. Fecal occult blood pending. Ferrous sulfate 325 mg p.o. twice daily plus vitamin C 500 mg p.o. daily Hypothyroidism, iatrogenic. Synthroid has been discontinued Anxiety Overactive bladder. Detrol 2 mg p.o. twice daily Constipation. MiraLAX 34 g p.o. daily plus Reglan 10 mg IV every 6 hours IBS. Amitiza 24 mcg p.o. twice daily Depression. Effexor 150 mg p.o. 3 times daily Fibromyalgia Obesity. Patient be counseled regarding lifestyle modification History of vitamin B12 deficiency History of alcohol abuse, remote Hyperlipidemia History of vitamin D deficiency Neuropathy GERD. Protonix 40 mg IV daily DVT prophylaxis. Bilateral SCD Disposition: END OF DOCTOR EMAMIS PROGRESS NOTE
[2020-11-28] MEDS: 1: AA 5%/Calcium/D15W/Lytes 1,000 ML with MVI, Adult with Vitamin K 10 ML, Zinc/Copper/M IV SCH ×6 (08:51→19:18)
[2020-11-28] MEDS: Tolterodine 2 MG Tab PO SCH ×2 (08:52→20:37)
[2020-11-28] MEDS: Magnesium Oxide 400 MG Tab PO SCH (08:52)
[2020-11-28] MEDS: Venlafaxine 75 MG Tab PO SCH ×3 (08:52→20:37)
[2020-11-28] MEDS: Linezolid 600 MG in Premix Bag 1 BAG IV SCH ×2 (08:52→21:38)
[2020-11-28] MEDS: Metoprolol Tartrate 50 MG Tab PO SCH ×2 (09:00→20:37)
[2020-11-28] MEDS: Polyethylene Glycol 3350 Powder 17 GM Packet PO SCH (09:00)
[2020-11-28] MEDS ORDERED: Ascorbic Acid 500 MG Tab PO SCH (09:00)
[2020-11-28] MEDS ORDERED: Scopolamine 1.5 MG Transdermal Patch TOP SCH (09:00)
[2020-11-28] MEDS: Pantoprazole 40 MG Vial IV SCH (09:59)
[2020-11-28] MEDS: Acetaminophen 325 MG Tab PO PRN (11:22)
--- NOTE | 2020-11-28 13:58 | CR ---
CHEST: 2 view CLINICAL HISTORY:Fevers COMPARISON:11/24/2020 FINDINGS: Heart size and pulmonary vascularity are normal. Patient has a subclavian catheter from the left. Tip is in the superior vena cava atrial junction. There is some minimal patchy density seen on the lateral image in the medial segment of the right middle lobe. IMPRESSION: Minimal patchy density in the medial segment right middle lobe. This may represent patchy atelectasis or minimal pneumonic infiltrate
[2020-11-28] MEDS: Ferrous Sulfate 325 MG Tab PO SCH (17:53)
[2020-11-28] MEDS ORDERED: Acetaminophen 1,000 MG in Premix Bag 1 BAG IV ONE (20:03)
[2020-11-29] MEDS: Metoclopramide 10 MG/2 ML SDV IV SCH (04:00)
[2020-11-29] MEDS: Meropenem 500 MG in Sodium Chloride 0.9% 50 ML IV SCH (04:00)
[2020-11-29] MEDS ORDERED: Acetaminophen 1,000 MG in Premix Bag 1 BAG IV ONE (04:58)
[2020-11-29] MEDS: 1: AA 5%/Calcium/D15W/Lytes 1,000 ML with MVI, Adult with Vitamin K 10 ML, Zinc/Copper/M IV SCH ×3 (05:34)
[2020-11-29 05:58] LABS: CORONAVIRUS COVID-19 NAA NEGATIVE (NEGATIVE)
[2020-11-29] MEDS ORDERED: Bupivacaine 0.5% 50 ML MDV ONE (06:27)
[2020-11-29] MEDS ORDERED: Lidocaine 1% with EPINEPHrine 1:100,000 50 ML MDV ONE (06:28)
--- NOTE | 2020-11-29 07:39 | PCM.SN.2 ---
- Free Text/Narrative Note: START OF DOCTOR EMAMIS PROGRESS NOTE Subjective: The patient indicates that overall her nausea has improved. Overnight she indicates that she had 2 episodes of emesis. She denies fever, rigors, wheeze. She states that she has a cough productive of white sputum. She indicates that she has minimal abdominal pain and she denies dyspnea. I explained to the patient her current medical condition and plan of care and have answered all of her questions Objective: General: -Alert -No acute distress -No dyspnea -No tachypnea -Obese Heart: -Regular rate -Regular rhythm -No murmurs -No gallops -No rubs Lungs: -No wheeze -No rhonchi -No rales Abdomen: -Hypoactive bowel sounds in all four quadrants -No rebound -No guarding -No tenderness -Ostomy bag present in the right lower quadrant Extremities: -2/4 pulse in all four extremities -No clubbing -No cyanosis -No edema Additional Details / Additional Findings / Exceptions / Miscellaneous: Pertinent Laboratory Results / Pertinent Radiology Results / Pertinent Diagnostic Results / Pertinent Vital Signs: Vital signs stable, hemoglobin 10.5, platelet count 409,000, AST 54 Assessment / Plan: Query colitis. Wound culture positive for Enterobacter cloacae, E. coli, strep viridans. Patient status post repositioning of WALT drains x2 on November 24, 2020 with surgery. Patient status post fistulogram and Tisseel placement on November 26, 2020. meropenem 500 mg IV every 6 hours plus linezolid 600 mg IV every 12 hours plus aztreonam 1 g IV every 8 hours. Left lower lobe pneumonia. Meropenem 500 mg IV every 6 hours plus linezolid 600 mg IV every 12 hours plus aztreonam 1 g IV every 8 hours Nausea. Scopolamine patch: 1.5 mg transdermally every 72 hours plus Reglan 10 mg IV every 6 hours Pretension. Metoprolol 50 mg p.o. twice daily Iron deficiency anemia. Will monitor hemoglobin levels intermittently. Fecal occult blood pending. Ferrous sulfate 325 mg p.o. twice daily plus vitamin C 500 mg p.o. daily Hypothyroidism, iatrogenic. Synthroid has been discontinued Anxiety Overactive bladder. Detrol 2 mg p.o. twice daily Constipation. MiraLAX 34 g p.o. daily plus Reglan 10 mg IV every 6 hours IBS. Amitiza 24 mcg p.o. twice daily Depression. Effexor 150 mg p.o. 3 times daily Fibromyalgia Obesity. Patient be counseled regarding lifestyle modification History of vitamin B12 deficiency History of alcohol abuse, remote Hyperlipidemia History of vitamin D deficiency Thrombocytosis. Will monitor platelet count intermittently Neuropathy GERD. Protonix 40 mg IV daily DVT prophylaxis. Bilateral SCD Disposition: The patient indicates that she has been notified by the surgical service (the primary team) that she will be discharged on this morning of November 29, 2020 and that she will follow up with [facility] CLAUDIO DOCTOR HODGE PROGRESS NOTE
[2020-11-29] MEDS: Ferrous Sulfate 325 MG Tab PO SCH (08:51)
[2020-11-29] MEDS: Lubiprostone 24 MCG Cap PO SCH (08:51)
[2020-11-29] MEDS ORDERED: SCOPOLAMINE PATCH CHECK TOP SCH (09:00)
--- NOTE | 2020-11-29 11:59 | DISCH ---
ADMISSION DIAGNOSES: 1. Sepsis. 2. Linitis plastica. 3. Bile leak postoperative. 4. Left lower lobe pneumonia. POSTOPERATIVE DIAGNOSES: 1. Upper gastrointestinal. 2. Insertion of left subclavian vein triple-lumen catheter. 3. Placement of abdominal wall catheter to facilitate drain management. Date of procedure 11/24/2020. Surgeon: Zay Betancourt MD. 4. Fistulogram, injection of fibrin sealant at duodenal fistula 11/26/2020. 5. Surgeon: Zay Betancourt MD. HISTORY: Lucero Price is a 65-year-old was seen in the clinic on 11/22/2020 and was admitted to ICU for sepsis. She was found to have a left lower lobe pneumonia. Blood cultures were negative within the first [address] showed no evidence of fluid collection or any other findings. Vital signs were stable. Urine output was satisfactory. WALT drain 1, 195 over 24 hours. WALT drain 2, 10 mL over 24 hours. The WALT drain cultures showed mixed katharine and Gram-positive cocci. She currently is on antibiotics and is having dysphagia. A central line and upper endoscopy were done on 11/24/2020, and potassium was replaced prior to that procedure. On 11/24, she tolerated the procedure well. TPN is running without difficulty. Upper GI x-ray showed good flow through the esophagus, gastric pouch, and into the small bowel, and she was started on a full liquid diet, instructed to sit up when drinking. On 11/26, she had quite a bit in the amount of drainage from the WALT drain, so she did have a second procedure, injection of fibrin sealant of the duodenal fistula and the drainage decreased. She continues not to be able to eat very much. She was switched to Reglan 10 mg every 6 hours scheduled and Zofran IV 15 minutes before eating. On 11/27, she had a temp max of 100.4. Vital signs otherwise were stable. WALT drains continued to drain minimal. Continued to work on oral intake. On 11/28, discussion regarding a Villagomez catheter, which could be also used for oncology chemotherapy medication if indicated. She is unable to take in very much liquids. Her oral intake was 100. She did have 100 mL emesis. WALT drains put out 50 of a light green drainage over 24 hours. On 11/29/2020, Lucero and Mr. Price along with their children opted to be discharged to home and go to [facility] in a.m. TPN was turned down to 40 for the past 1 hour. Op reports, pathology report, oncology reports were printed and will be given to the patient. PHYSICAL EXAMINATION: GENERAL: Lucero is a pleasant 65-year-old female. Alert, orientated. VITAL SIGNS: Height is 5 feet 2 inches, weight is 141 pounds 15.64 ounces, BMI is 25.2. TPR is 97.2, 92, 16. Blood pressure 135/78. HEENT: Negative. NECK: Supple. HEART: Regular rate and rhythm. LUNGS: Clear. ABDOMEN: WALT drain intact. EXTREMITIES: Without peripheral edema. Oral intake 100 in the past 24 hours. She had 100 mL emesis. Urine output 500 with independent voids and WALT drain was 10. She did have 3 bowel movements on the . DISPOSITION: Discharged to home. CONDITION: Stable and improving. To follow up pending what she finds out at [facility]. There intention per request is to go home today and then leave early tomorrow to [facility]. This is request of the patient's and children. HOME MEDICATIONS: Ferrous fumarate 325 oral b.i.d. with meals; B12 1000 mcg sublingual daily; Xanax 0.5 mg oral daily p.r.n. anxiety; levothyroxine 100 mcg oral daily; multivitamin liquid 15 mL daily; Amitiza 24 mcg oral twice daily; Colace 100 mg oral twice daily; venlafaxine 150 mg oral 3 times a day; MiraLAX 17 g oral daily; oxycodone 5 mg every 4 hours p.r.n. pain; Tylenol 1000 mg every 6 hours p.r.n. pain, tolterodine tartrate 4 mg oral daily; magnesium oxide 400 mg oral daily. DIET: Step 2 gastric bypass diet, Ensure Enlive protein drink 3 times daily. ACTIVITY: As tolerated. Walk short distances 6 times a day. DISCHARGE INSTRUCTIONS: Shower/bathing: May shower. Change dressing around WALT drains every 3 hours. Triple-lumen catheter was heparin flushed prior to discharge. To notify provider if any fever, increased pain, swelling, redness, drainage, nausea or vomiting. /[id number]
--- NOTE | 2020-11-29 14:19 | OR ---
DATE OF PROCEDURE: 11/26/2020 SURGEON: Zay Betancourt MD PREOPERATIVE DIAGNOSIS: Persistent low output duodenal fistula. POSTOPERATIVE DIAGNOSIS: Persistent low output duodenal fistula. OPERATIVE PROCEDURE: Removal of Raul-Romano drains with fistulogram and injection of fibrin sealant into fistula site. ANESTHESIA: Local plus IV sedation. INDICATIONS FOR PROCEDURE: The patient is now somewhat over 8 weeks from a completion total gastrectomy for linitis plastica including encroachment onto the duodenum. The duodenal closure was accomplished at that time, but she then developed a duodenal fistula. She has 2 Raul-Romano drains in the area. Two days ago, the patient had a fistulogram with WALT drains in place and this showed no extravasation beyond the course of the tubes with some drainage into the duodenum. At this point, there appeared to be a well defined tract without any external areas of extravasation beyond the tract of the WALT drains itself. The plan is to proceed with a removal of drains. We will obtain a fistulogram and tete the site of fistula and injection of neomycin, followed by fibrin sealant, and hopefully this will facilitate final sealing of the fistula. Potential risks including further bleeding, infection, possibility of the fistula not healing were all gone over and the patient wishes to proceed. She is aware that with the malignant nature of this fistula, even though I have quite a long tract from the skin, there may not be ever adequate healing. DETAILS OF PROCEDURE: The patient was taken to the operating room, placed in a supine position on the fluoroscopy bed, and the IV sedation was given in and around WALT drains, and the right upper abdomen was then prepped and draped. We then injected dye into one of the WALT drains and with a skin marker and clamp placed over that, we marked the external level of the fistula. The Raul-Romano drain was then pulled back to the point perhaps a centimeter proximal to that point. Neomycin solution was then injected into the drain tracts, most of which came back out of the drain tracts, and following this catheter placed through the now partially cutoff Raul-Romano drain, 4 mL of fibrin sealant was placed into the area of the fistula and the remaining drains then removed, and a dressing applied. There were no evident complications. Zay Betancourt MD /[id number]
--- NOTE | 2020-11-29 15:00 | PN ---
DATE OF SERVICE: 11/28/2020 The patient has more or less defervesced overnight. She did have a T-max of 100.5 yesterday. Temperature this morning is 98.6, heart rate is running around 100, blood pressure 146/73, O2 sats are 95% on 2 L nasal cannula. The oral intake remained very minimal yesterday with some emesis and she is tolerating the TPN. The plan at this point will be to place a Villagomez catheter tomorrow in anticipation of starting some home TPN and tentatively maintain TPN regimen with the patient to be discharged on Friday. At that point, we will probably get a PET scan prior authorized to have that done in [place]. We will add a scopolamine patch to this regimen today to see if that helps with the nausea and for the last couple days, check a urine C and S and chest-x-ray today, although she is not putting much out. If she does spike a temperature of 100.6 or more, we will get blood cultures. She does have some drainage from the WALT sites, but we placed an ostomy bag with a small orifice which has made that much more of a satisfactorily managed situation. I suspect with time there is a good chance that the duodenal fistula will close and at this point, quite low output. Zay Betancourt MD /[id number]
--- NOTE | 2020-12-15 12:57 | OR ---
DATE OF PROCEDURE: 11/24/2020 SURGEON: Zay Betancourt MD PREOPERATIVE DIAGNOSES: 1. Indication for central venous access. 2. Dysphagia referable to distal esophagus. POSTOPERATIVE DIAGNOSES: 1. Indication for central venous access. 2. Dysphagia associated with retained liquid food within the distal esophagus. OPERATIVE PROCEDURE: 1. Upper gastrointestinal endoscopy (73039). 2. Insertion of left subclavian vein triple-lumen catheter (06066). ANESTHESIA: Local plus IV sedation. INDICATIONS FOR PROCEDURE: A 65-year-old female who has been unable to maintain or initiate adequate oral intake. She has had a sense of dysphagia referable to the distal esophagus and noted in the past to have some retained food without any obstruction either at the area of the esophagus or gastrojejunostomy or small bowel; however, an upper GI and x-ray showed free flow of contrast through those areas into the more distal small bowel. Plan is to proceed with an upper GI endoscopy for evaluation of the upper GI anatomy and function along with insertion of a central line for IV hyperalimentation. Potential risks including bleeding, aspiration of gastric contents or perforation, problems with pneumohemothorax with subsequent infection of the central line were all reviewed, and the patient wishes to proceed. DETAILS OF PROCEDURE: The patient was taken to the operating room and placed in a left lateral decubitus position. IV sedation was administered after which the upper GI endoscope was passed orally through the length of the esophagus, through the area of the gastric pouch and gastrojejunostomy roughly 20 cm into the Caden limb. Findings included normal hypopharynx, larynx, upper esophageal sphincter, and esophageal body. At the EG junction, there was some retained liquid and thin solid type GI contents. Of note, the scope easily passed through the entire area examined with no areas of obstruction identified. The patient has primarily problem with dysmotility of the distal esophagus. As much of the fluid was evacuated as possible and the procedure was then concluded. The patient was then placed in a supine position. The upper chest and neck areas were prepped and draped. The left subclavian area was anesthetized with 1% lidocaine mixed with Marcaine. Left subclavian vein was cannulated. A guidewire was passed. Over the guidewire, a triple-lumen catheter was positioned. Good in and outflow were noted. Ports were flushed with heparinized saline. Catheter was sutured to skin with some 3-0 silk stitch and dressing applied. Subsequent chest x-ray showed no evident problems. One additional note is that the abdominal wall drains were becoming somewhat loose with regard to the attachments. At this point, these were resutured and tacked into position with some 3-0 Vicryl stitch to maintain their position. The patient was taken to the recovery room in satisfactory condition. There were no evident complications. Zay Betancourt MD /[id number]
--- NOTE | 2020-12-15 15:45 | PN ---
DATE OF SERVICE: 11/24/2020 The patient underwent an upper endoscopy this morning which showed quite a bit in the way of retained fluid in the area of the distal esophagus. We will obtain an upper GI x-ray tomorrow to evaluate that area of function. We will also obtain a fistulogram and a full- liquid diet will be started after that. Reglan 10 mg IV push will be restarted for pneumonia. A central line was placed and we will begin some TPN. Otherwise, her IV will be still placed to keep open, and we will obtain followup labs in the morning. Zay Betancourt MD /[id number]
== END 2020-11-29 09:52 | disposition home or self-care (01) | DRG 853 ==
LOC: JP.ICU 08:44 → JP.MS 11-27 15:53 → JP.ICU 11-27 15:56 → JP.MS 11-28 17:02
PROVIDERS: ADMIT Surgery; ATTEND Surgery
PROC: 3E0336Z Introduction of Nutritional Substance into Peripheral Vein, Percutaneous Approach (ICD-10-PCS; 2020-11-24)
PROC: 0D948ZZ Drainage of Esophagogastric Junction, Via Natural or Artificial Opening Endoscopic (ICD-10-PCS; 2020-11-24)
PROC: 02HV33Z Insertion of Infusion Device into Superior Vena Cava, Percutaneous Approach (ICD-10-PCS; 2020-11-24)
PROC: 0DP Gastrointestinal System, Removal (ICD-10-PCS; principal; 2020-11-26)
PROC: BW11YZZ Fluoroscopy of Abdomen and Pelvis using Other Contrast (ICD-10-PCS; 2020-11-26)
PROC: 3E0G3GC Introduction of Other Therapeutic Substance into Upper GI, Percutaneous Approach (ICD-10-PCS; 2020-11-26)
DX: A41.9 Sepsis, unspecified organism (principal); J18.9 Pneumonia, unspecified organism; K83.2 Perforation of bile duct; F41.9 Anxiety disorder, unspecified; M79.7 Fibromyalgia; D50.9 Iron deficiency anemia, unspecified; K58.9 Irritable bowel syndrome, unspecified; F32.9 Major depressive disorder, single episode, unspecified; N32.81 Overactive bladder; K59.00 Constipation, unspecified; Z20.822 Contact with and (suspected) exposure to COVID-19; E66.9 Obesity, unspecified; B96.20 Unspecified Escherichia coli [E. coli] as the cause of diseases classified elsewhere; D69.6 Thrombocytopenia, unspecified; K21.9 Gastro-esophageal reflux disease without esophagitis; E78.5 Hyperlipidemia, unspecified; E53.8 Deficiency of other specified B group vitamins; E55.9 Vitamin D deficiency, unspecified; G62.9 Polyneuropathy, unspecified; E03.2 Hypothyroidism due to medicaments and other exogenous substances; R13.10 Dysphagia, unspecified; Z88.2 Allergy status to sulfonamides; Z79.890 Hormone replacement therapy; Z79.899 Other long term (current) drug therapy; Z98.84 Bariatric surgery status; Z90.710 Acquired absence of both cervix and uterus; Z68.25 Body mass index [BMI] 25.0-25.9, adult
CPT/HCPCS: 0241U; 20501; 36415; 51702; 71045; 71046; 74177; 74240; 76000; 76080; 80053; 81001; 82728; 83550; 83605; 83735; 83880; 84100; 84439; 84443; 85025; 85027; 86140; 86850; 86900; 86901; 86920; 86922; 87040; 87070; 87077; 87086; 87186; 87205; A9270-GY; C9113; J0131; J1642; J2020; J2060; J2185; J2250; J2405; J2704; J2765; J3010; J3475; J3490; J7120; J7121; P9047; Q9967